=== PATIENT | female | born 1955 | race Caucasian/White ===

== ENCOUNTER 2017-03-12 15:50 | Emergency (ER) | payer OTHER ==
[~2017-03-12] VITALS: Ht 170.2 cm; Wt 49.9 kg
[~2017-03-12 15:50] MED LIST: ALENDRONATE PO; AMBIEN 5 MG TABL5 M1 PO; BUTALB-ACETAMI1 EAC2 PO; BUTALB-APAP-CA1 EACH PO; CELEXA40 MG PO; CENTRUM SILVER1 EAC1 PO; DEPAKOTE500 MG PO; DESYREL100 MG PO; FENOFIBRATE160 MG PO; FOSAMAX 70 MG T70 M1 PO; GABITRIL2 MG PO; HYDROCODON-ACE1 EAC7 PO; ISOMETHEPT-DIC1 EACH PO; LAMICTAL150 MG PO; LEVAQUIN 500 M500 M8 PO; LOPRESSOR50 PO; LUNESTA3 MG PO; MAXALT MLT ODT 55 M1 PO; MEDROLDOSEPACK PO; NARATRIPTAN HC2.5 MG PO; NEURONTIN 300300 M1 PO; NEURONTIN 300M300 M2 PO; NEXIUM40 MG PO; NORCO 5-325 TA1 EACH PO; PHENERGAN 25 MG25 M1 PO; PROPRANOLOL 1010 MG PO; PROTONIX40 M2 PO; RELPAX40 MG PO; REMERON15 MG PO; SEROQUEL 50 MG50 M1 PO; SEROQUEL 50 MG50 MG OR; SEROQUEL 50 MG50 MG PO; SIMVASTATIN40 MG PO; TRAZODONE 150150 M1 PO; TRICOR145 MG PO; VALIUM5 MG PO; VISTARIL 25 MG25 M1 PO; VITAMIN D3400 UNIT PO; VITAMINC500 PO
== END 2017-03-12 20:51 | disposition home or self-care (01) ==
LOC: ER 15:50
DX: G43.909 Migraine, unspecified, not intractable, without status migrainosus (principal); F17.210 Nicotine dependence, cigarettes, uncomplicated; F10.99 Alcohol use, unspecified with unspecified alcohol-induced disorder; Z98.890 Other specified postprocedural states; Z88.5 Allergy status to narcotic agent; Z88.0 Allergy status to penicillin; Z91.048 Other nonmedicinal substance allergy status; Z88.8 Allergy status to other drugs, medicaments and biological substances

== ENCOUNTER 2017-05-23 15:23 | Emergency (ER) | payer OTHER ==
[~2017-05-23] VITALS: Ht 170.2 cm; Wt 49.9 kg
--- NOTE | ~2017-05-23 | EKG ---
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: [facility] : 1955 Requested By: Khalida Dutton Order Number: [id number] MD: Shashi Gates Measurements Intervals [place] Rate: 94 P: 31 [place]: 155 QRS: 18 QRSD: 84 T: 69 QT: 364 QTc: 456 Interpretive Statements Sinus rhythm Atrial premature complex Anteroseptal infarct, age indeterminate Compared to ECG 03/08/2016 13:44:21 Atrial premature complex(es) now present Myocardial infarct finding now present Sinus tachycardia no longer present Electronically Signed On 05-24-2017 6:52:09 CDT by Shashi Gates [email or web address] <ELECTRONICALLY SIGNED> By: Shashi Gates MD 05/24/17 0652 1548 1548 Shashi Gates MD /EPI
[2017-05-23 16:05] LABS: ABSOLUTE NEUTROPHILS 3.7 thou/uL (1.4-8.2); BASOPHILS 0.6 % (0.0-2.0); EOSINOPHILS 1.2 % (0.0-3.0); HEMATOCRIT 31.9 % (37.0-47.0); HEMOGLOBIN 10.6 gm/dL (12.0-15.0); LYMPHOCYTES 20.2 % (24.0-44.0); MCH 30.5 pg (26.0-34.0); MCHC 33.3 g/dL (28.0-37.0); MCV 91.6 fL (80.0-100.0); MONOCYTES 11.4 % (1.0-8.0); PLATELET COUNT 325 thou/uL (150-400); POLYS 66.6 % (36.0-66.0); RBC 3.49 mil/uL (4.20-5.00); RDW 14.3 % (10.5-14.5); WBC 5.6 thou/uL (4.0-11.0)
[2017-05-23 16:06] LABS: MANUAL DIFF NO
[2017-05-23 16:12] LABS: ANION GAP 5 mmol/L (7-16); BUN 9 mg/dL (7-18); CALCIUM 9.3 mg/dL (8.5-10.1); CHLORIDE 105 mmol/L (98-107); CO2 31 mmol/L (21-32); CREATININE 0.8 mg/dL (0.6-1.0); GLUCOSE 95 mg/dL (74-106); POTASSIUM 3.3 mmol/L (3.5-5.1); SODIUM 141 mmol/L (136-145)
[2017-05-23 16:20] LABS: ALBUMIN 2.5 g/dL (3.4-5.0); ALKALINE PHOSPHATASE 122 U/L (46-116); SGOT 16 U/L (15-37); SGPT 13 U/L (30-65); TOTAL BILIRUBIN 0.9 mg/dL (<0.1-1.0); TOTAL PROTEIN 6.6 g/dL (6.4-8.2); TROPONIN-I < 0.04 ng/mL (<0.06)
[2017-05-23] MEDS ORDERED: NEXIUM 40 MG CA40 M1 PO (17:12)
[2017-05-23 19:00] LABS: URINE BILIRUBIN NEGATIVE (Negative); URINE BLOOD NEGATIVE (Negative); URINE COLOR YELLOW; URINE GLUCOSE-RANDOM* NEGATIVE (Negative); URINE KETONES NEGATIVE (Negative); URINE NITRITE POSITIVE (Negative); URINE PROTEIN (DIPSTICK) NEGATIVE (Negative); URINE SPECIFIC GRAVITY <= 1.005 (1.003-1.035)
[2017-05-23 19:04] LABS: BACTERIA >30 Many /HPF (None Seen); CASTS None Seen /LPF (None Seen); SQUAMOUS 0-3 Few /LPF (0-3); URINE RBC None Seen /HPF (0-2); URINE WBC 0-5 Rare /HPF (0-5)
[2017-05-23 19:05] LABS: CRYSTALS None Seen /LPF (None Seen)
[2017-05-23] MEDS ORDERED: KEFLEX500 MG PO (19:15)
[2017-05-23] MEDS ORDERED: AZITHROMYCIN 2250 MG PO (19:15)
== END 2017-05-23 19:49 | disposition home or self-care (01) ==
LOC: ER 15:23
PROVIDERS: Physician Assistant
DX: J18.9 Pneumonia, unspecified organism (principal); E86.0 Dehydration; N39.0 Urinary tract infection, site not specified; I95.9 Hypotension, unspecified; S93.401A Sprain of unspecified ligament of right ankle, initial encounter; G43.909 Migraine, unspecified, not intractable, without status migrainosus; F17.210 Nicotine dependence, cigarettes, uncomplicated; Z90.49 Acquired absence of other specified parts of digestive tract; Z90.89 Acquired absence of other organs; Z88.5 Allergy status to narcotic agent; Z88.8 Allergy status to other drugs, medicaments and biological substances; Z88.0 Allergy status to penicillin; Z91.018 Allergy to other foods; W18.30XA Fall on same level, unspecified, initial encounter; Y93.89 Activity, other specified; Y92.89 Other specified places as the place of occurrence of the external cause; Y99.8 Other external cause status

== ENCOUNTER → 2017-11-18 | Outpatient (CLI) | payer OTHER ==
[~2017-11-18] VITALS: Ht 170.2 cm; Wt 54.4 kg
[~2017-11-18] MED LIST changes: +ALENDRONATE SOD70 MG PO; +AZITHROMYCIN 2250 MG PO; +CENTRUM SILVER1 EAC4 PO; +FLOMAX0.4 MG PO; +KEFLEX500 MG PO; +NEXIUM 40 MG CA40 M1 PO
--- NOTE | ~2017-11-18 | P ---
[facility] [place] [address] PROCEDURE REPORT Name: ANA NICHOLE Room #: REG [facility]#: [id number] Admission: 11/18/17 Attend Phys: Lizandro Kapoor MD Discharge: Date of : 51 Report #: [id number] THIS REPORT FOR: //name// CC: David Gr MD DATE OF SERVICE: 11/18/2017 BRIEF HISTORY: The patient is a 62-year-old woman for average risk screening colonoscopy. Last colon exam was more than 10 years ago. She has had chronic constipation without any recent change in her bowel habits. PREOPERATIVE DIAGNOSIS: Average risk screening colonoscopy. POSTOPERATIVE DIAGNOSES: 1. Multiple colon polyps. 2. Small internal hemorrhoids. MEDICATIONS: Deep sedation with propofol per anesthesia. SPECIMEN: 1. Cecal colon polyp. 2. Polyp at 40 cm. 3. Polyp at 20 cm. 4. Rectal polyp. ESTIMATED BLOOD LOSS: 3 mL. PROCEDURE: Colonoscopy to cecum and terminal ileum with snare polypectomy and biopsy. FINDINGS: Prior to propofol sedation, procedure of colonoscopy discussed with the patient as well as potential risks and its complications. She indicates she understands and desires to proceed. PROCEDURE: With the patient in left lateral decubitus position, digital examination was completed which revealed no abnormalities. Subsequently, the Pansieve video colonoscope was introduced in the rectum, advanced under direct vision to the cecum. This was done with minimal difficulty. The cecum was identified by the ileocecal valve and the appendiceal orifice. I was able to visualize the distal segment of the terminal ileum, which was inspected and noted to be unremarkable. At that point, the scope was slowly withdrawn and careful circumferential views obtained including retroflex in the ascending colon. As we withdrew the scope, she was noted to have a flat and somewhat [facility] [address] [place] [address] PROCEDURE REPORT Name: DIONISIOANA NORMAN Room #: REG [facility]#: [id number] Admission: 11/18/17 Attend Phys: Lizandro Kapoor MD Discharge: Date of : 51 Report #: [id number] nodular polyp in the cecum that was about 12 mm in greatest dimension. This was removed with multiple passes with a cold polypectomy snare and completely removed. The scope was further withdrawn and the prep was noted to be good. No additional abnormalities were noted until the proximal sigmoid colon was reached and at 40 cm, a 6-8 mm flat polyp was seen and removed by cold polypectomy snare and recovered. At 20 cm in the distal sigmoid, another flat polyp was seen in the range of about 5-6 mm, removed by cold snare polypectomy. Scope was withdrawn in the rectum and a 4-5 mm polyp was seen in the distal rectum, removed with biopsy forceps. Upon retroflexion, small internal hemorrhoids were seen. No other abnormalities were identified. The scope was withdrawn. The patient tolerated the procedure well. CONDITION OF THE PATIENT UPON DISCHARGE: Following procedure, the patient was drowsy, arousable, conversant and will be discharged home when fully ambulatory. INSTRUCTIONS TO THE PATIENT AND FAMILY AT THE TIME OF DISCHARGE: Multiple polyps removed as described above. We will follow up on the pathology. However, due to the flat polyp in the cecum more than 10 mm, we will have her return for a high risk screening colonoscopy in 3 years. She has had problems with constipation, which has been a longstanding problem. At this point, I suggest fiber plus or minus MiraLax on a daily basis for management of her chronic constipation. She will return to care of Dr. Jeffry Gr and Dr. David Reed and return to see me as needed. Last colonoscopy was more than 10 years ago. Withdrawal time from the cecum was 20 minutes 48 seconds. <ELECTRONICALLY SIGNED> By: Lizandro Kapoor MD 11/18/17 1712 0833 1150 Lizandro Kapoor MD /nt
== END | disposition home or self-care (01) ==
LOC: GI 06:25
DX: D12.0 Benign neoplasm of cecum (principal); D12.5 Benign neoplasm of sigmoid colon; K62.1 Rectal polyp; K64.8 Other hemorrhoids; Z86.010 Personal history of colon polyps; Z98.890 Other specified postprocedural states; Z90.49 Acquired absence of other specified parts of digestive tract; Z87.891 Personal history of nicotine dependence; K21.9 Gastro-esophageal reflux disease without esophagitis; E78.5 Hyperlipidemia, unspecified; F32.9 Major depressive disorder, single episode, unspecified; F41.9 Anxiety disorder, unspecified
CPT/HCPCS: 62110; 62900

== ENCOUNTER 2018-04-21 09:50 | Emergency (ER) | payer OTHER ==
[~2018-04-21] VITALS: Ht 170.2 cm; Wt 61.2 kg
--- NOTE | ~2018-04-21 | EKG ---
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: [facility] : 1955 Requested By: Syed Gonzalez Order Number: [id number] MD: Shashi Gates Measurements Intervals [place] Rate: 87 P: 42 CT: 163 QRS: -1 QRSD: 91 T: 35 QT: 373 QTc: 449 Interpretive Statements Sinus rhythm Borderline low voltage, extremity leads Compared to ECG 05/23/2017 15:48:38 Atrial premature complex(es) no longer present Myocardial infarct finding no longer present Electronically Signed On 04-21-2018 17:47:19 CDT by Shashi Gates [email or web address] <ELECTRONICALLY SIGNED> By: Shashi Gates MD 04/21/18 1747 1037 1037 Shashi Gates MD /EPI
[2018-04-21 10:41] LABS: ABSOLUTE NEUTROPHILS 2.8 thou/uL (1.4-8.2); BASOPHILS 1.1 % (0.0-2.0); EOSINOPHILS 2.4 % (0.0-3.0); HEMATOCRIT 44.6 % (37.0-47.0); HEMOGLOBIN 15.2 gm/dL (12.0-15.0); LYMPHOCYTES 29.3 % (24.0-44.0); MCH 30.6 pg (26.0-34.0); MCHC 34.1 g/dL (28.0-37.0); MCV 89.8 fL (80.0-100.0); MONOCYTES 9.9 % (1.0-8.0); PLATELET COUNT 165 thou/uL (150-400); POLYS 57.3 % (36.0-66.0); RBC 4.96 mil/uL (4.20-5.00); RDW 15.2 % (10.5-14.5)
[2018-04-21 10:42] LABS: URINE BILIRUBIN NEGATIVE (Negative); URINE BLOOD NEGATIVE (Negative); URINE COLOR YELLOW; URINE GLUCOSE-RANDOM* NEGATIVE (Negative); URINE KETONES NEGATIVE (Negative); URINE PROTEIN (DIPSTICK) NEGATIVE (Negative); URINE UROBILINOGEN 0.2 E.U./dl (0.2-1.0)
[2018-04-21 10:43] LABS: URINE CLARITY HAZY; URINE LEUKOCYTES-REFLEX 2+ (Negative); URINE NITRITE-REFLEX POSITIVE (Negative)
[2018-04-21 10:45] LABS: ANION GAP 8 mmol/L (7-16); BUN 11 mg/dL (7-18); CALCIUM 10.5 mg/dL (8.5-10.1); CHLORIDE 102 mmol/L (98-107); CO2 27 mmol/L (21-32); CREATININE 0.9 mg/dL (0.6-1.0); GLUCOSE 104 mg/dL (74-106); POTASSIUM 3.8 mmol/L (3.5-5.1); SODIUM 137 mmol/L (136-145)
[2018-04-21 10:53] LABS: TROPONIN-I <0.06 ng/mL (<0.06)
[2018-04-21 11:33] LABS: BACTERIA-REFLEX >30 Many /HPF (None Seen); CASTS None Seen /LPF (None Seen); CRYSTALS None Seen /LPF (None Seen); SQUAMOUS >10 Many /LPF (0-3); URINE WBC-REFLEX >25 Many /HPF (0-5)
[2018-04-21 11:34] LABS: URINE RBC 0-2 Rare /HPF (0-2)
[2018-04-21] MEDS ORDERED: ZOFRAN4 MG PO (11:52)
[2018-04-21] MEDS ORDERED: KEFLEX500 M1 PO (11:52)
== END 2018-04-21 12:18 | disposition home or self-care (01) ==
LOC: ER 09:50
PROVIDERS: Emergency Medicine
DX: N39.0 Urinary tract infection, site not specified (principal); K21.9 Gastro-esophageal reflux disease without esophagitis; E78.5 Hyperlipidemia, unspecified; F17.210 Nicotine dependence, cigarettes, uncomplicated; Z88.0 Allergy status to penicillin; Z88.1 Allergy status to other antibiotic agents; Z88.8 Allergy status to other drugs, medicaments and biological substances

== ENCOUNTER 2019-02-07 20:13 | Inpatient (IN) | payer OTHER ==
[~2019-02-07] VITALS: Ht 162.6 cm; Wt 57.6 kg
[~2019-02-07 20:13] MED LIST changes: +KEFLEX500 M1 PO; +ZOFRAN4 MG PO
[2019-02-07 20:20] VITALS: BP 143/97
[2019-02-07 21:23] LABS: ABSOLUTE NEUTROPHILS 4.2 thou/uL (1.4-8.2); BASOPHILS 0.7 % (0.0-2.0); EOSINOPHILS 1.4 % (0.0-3.0); HEMATOCRIT 42.6 % (37.0-47.0); HEMOGLOBIN 14.2 gm/dL (12.0-15.0); LYMPHOCYTES 24.4 % (24.0-44.0); MCH 30.5 pg (26.0-34.0); MCHC 33.3 g/dL (28.0-37.0); MCV 91.4 fL (80.0-100.0); MONOCYTES 9.4 % (1.0-8.0); PLATELET COUNT 161 thou/uL (150-400); POLYS 64.1 % (36.0-66.0); RBC 4.66 mil/uL (4.20-5.00); RDW 14.6 % (10.5-14.5); WBC 6.6 thou/uL (4.0-11.0)
[2019-02-07 21:38] LABS: ANION GAP 11 mmol/L (7-16); BUN 8 mg/dL (7-18); CALCIUM 9.2 mg/dL (8.5-10.1); CHLORIDE 106 mmol/L (98-107); CO2 23 mmol/L (21-32); CREATININE 0.7 mg/dL (0.6-1.0); GLUCOSE 116 mg/dL (74-106); POTASSIUM 4.4 mmol/L (3.5-5.1); SODIUM 140 mmol/L (136-145)
[2019-02-07 21:43] LABS: SALICYLATE 4.7 mg/dL (2.8-20.0)
[2019-02-07] MEDS ORDERED: PROTONIX40 M1 PO (21:58)
[2019-02-07] MEDS ORDERED: HYDROXYZINE HCL25 M1 PO (22:00)
[2019-02-07] MEDS ORDERED: BOTOX100 UNIT (22:05)
--- NOTE | 2019-02-07 22:29 | NUR ---
PT STATES THAT SHE IS NO LONGER SHAKING BUT WANTS SOMETHING TO "KNOCK HER OUT" SO THAT SHE CAN GET SOME SLEEP
[2019-02-07 22:38] LABS: URINE BILIRUBIN NEGATIVE (Negative); URINE BLOOD NEGATIVE (Negative); URINE COLOR YELLOW; URINE GLUCOSE-RANDOM* NEGATIVE (Negative); URINE KETONES 1+ (Negative); URINE NITRITE-REFLEX NEGATIVE (Negative); URINE PROTEIN (DIPSTICK) NEGATIVE (Negative); URINE UROBILINOGEN 0.2 E.U./dl (0.2-1.0)
[2019-02-07 22:39] LABS: URINE CLARITY CLOUDY; URINE LEUKOCYTES-REFLEX 3+ (Negative)
[2019-02-07 22:47] LABS: AMP/METHAMP Negative (Negative); BARBITURATES Negative (Negative); BENZODIAZEPINES POSITIVE (Negative); COCAINE Negative (Negative); METHADONE Negative (Negative); OPIATES Negative (Negative); PCP Negative (Negative)
[2019-02-07 22:53] LABS: CASTS None Seen /LPF (None Seen); MUCUS 0-3 Light strn/LPF (None Seen); SQUAMOUS 0-3 Few /LPF (0-3); URINE WBC-REFLEX >25 Many /HPF (0-5)
[2019-02-07 22:54] LABS: BACTERIA-REFLEX >30 Many /HPF (None Seen); CRYSTALS None Seen /LPF (None Seen)
--- NOTE | 2019-02-08 03:26 | NUR ---
ADMISSION NOTE - ARRIVED TO [facility] FROM [facility] ED R/T TAKING AN UNSPECIFIED AMOUNT OF UNKNOWN PILLS. PT WAS PREVIOUSLY DISCHARGED FROM [facility] DAYS PRIOR TO THIS ADMISSION. SHE REPORTEDLY WAS HOARDING TABLETS OF PILLS TO PLAN TO OVERDOSE. SHE WAS MEDICALLY CLEARED IN THE ED, REPORT WAS GIVEN TO THIS RN, AND PATIENT ARRIVED ON THE UNIT. PER REPORT FROM ED WHEN PT IS STRESSED OUT SHE GOES TACHY >140 (OR DURING TIMES OF ANXIETY) AND RR >40. SHE REPORTEDLY HAS A HX OF SUBSTANCE ABUSE INCLUDING ETOH AND OPIOIDS. UPON ARRIVAL HER VSS, SHE DOES NOT APPEAR TO BE IN DISTRESS. SHE CONTINUED TO KEEP PUSHING FOR A NIGHT TIME SLEEP AID, BUT WHEN THIS RN ENTERED ROOM PATIENT WAS ASLEEP. RECEIVED ORDERS FROM ALLISON GIBSON NP FOR ADMISSION. NURSING INITIATED ALL PRECAUTIONS TO ENSURE SAFETY AT ALL TIMES.
--- NOTE | 2019-02-08 06:20 | NUR ---
ANA SLEPT 4.8 HOURS OF SLEEP. REFER YOU TO THE VIDEO OF WHO SLEEPS MORE.
[2019-02-08 07:00] VITALS: BP 114/66
--- NOTE | 2019-02-08 09:56 | EKG ---
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 : 1955 Requested By: Gerard Martinez Order Number: [id number] MD: Darek Ang Measurements Intervals [place] Rate: 112 P: 66 MS: 150 QRS: 41 QRSD: 86 T: 71 QT: 327 QTc: 447 Interpretive Statements Sinus tachycardia Poor R wave progression Nonspecific ST and T wave abnormality Compared to ECG 04/21/2018 10:37:56 Heart rate has increased Electronically Signed On 02-08-2019 9:56:00 CDT by Darek Ang [email or web address] ��������������������������������������������� <ELECTRONICALLY SIGNED> ���������������������������������������� By: Darek Ang MD, [facility] ��������������������������������������������� 02/08/19 0956 23 23 Darek Ang MD, [facility] /EPI
--- NOTE | 2019-02-08 10:50 | NUR ---
ASSUMED CARE OF PT @ 0700. PT ATE BREAKFAST IN DAYROOM AND SAT IN AM GROUP. PT REPORTS FEELING ANXIOUS & JITTERY - REQUESTED VISTARIL PRN. TALKED ON PHONE W/. PT STATES REPORTS IF SHE OVERDOSES AGAIN OR ATTEMPTS SUICIDE HE WILL LEAVE HER. PT TEARFUL WHEN TALKING ABOUT IT. STATES SHE AND HAVE BEEN TOGETHER FOR OVER 45 YEARS. PT DENIES CURRENT SI/HI. ORIENTED TO PERSON, PLACE & TIME. REQUIRES MUCH REASSURANCE TO HELP W/ANXIETY. PT SIGNED FALL CONTRACT. RESTING QUIETLY IN ROOM AT PRESENT. NO DISTRESS NOTED. CONTINUE TO MONITOR.
[2019-02-08 21:50] VITALS: BP 135/74
--- NOTE | 2019-02-08 23:59 | NUR ---
PATIENT UP AND DOWN ALL NIGHT IN ROOM SINCE 1999. SHE GETS UP TO READ IN A CHAIR AND THEN BACK IN BED TO READ. CALLED NURSE TO PUT HOB UP TO READ. THEN 30 MINUTES LATER SHE IS CALLING FOR NURSE STATING THAT SHE HAS TREMORS REALLY BAD AND FEELS LIKE SCREAMING. STATES SHE IS WITHDRAWING FROM DRUGS BUT DOESN'T KNOW WHAT ONES. HAD PATIENT SHOW ME HER HANDS AND THEY WERE MINOR TREMORS. SHE STATES SHE WANTS AN ASPIRIN BECAUSE THE TREMORS ARE MAKING HER HEAD ACHE. PATIENT HAS HAD ALL HER MEDS AND NEXT PRN IS 1.5 HOURS AWAY. TRIED TALKING WITH THE PATIENT AND DIVERTING ATTENTION ELSEWHERE AND ALSO DID BACK MASSAGE. PATIENT GROWING MORE ANXIOUS. STATES SHE "JUST GET ME A PILL." CALLED Dorene GIBSON NP AND PRN ORDERS GIVEN. ZYPREXA 10MG Q 4HR PRN ANXIETY AGITATION,MELATONIN 5MG PRN INSOMNIA, AND TYLENOL 650MG 4HR PRN FEVER,PAIN WERE ALL GIVEN AND PATIENT SETTLED BACK TO BED. SHE ASKED IF THE MEDS WERE STRONG AND I TOLD HER YES. SHE SAID, GOOD, AND WAS HAPPY WITH THAT. PATIENT WANTED TO STAY UP AND READ AFTER TAKING PRN MEDS AND I ENCOURAGED HER TO LAY DOWN IN BED WITH THE LIGHTS DOWN TO TRY AND RELAX AND LET THE MEDS TAKE EFFECT AND HELP HER HEADACHE, ETC. CONTINUING TO MONITOR.
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
[2019-02-09 07:58] VITALS: BP 107/69
--- NOTE | 2019-02-09 16:37 | NUR ---
PT OBSERVED TO BE UP AMBULATING IN ALLS AD [facility]ING[place] WHILE THERAPIST ON SBH UNIT WORKING WITH OTHER PTS. AFTER CHART REVIEW AND DISCUSSION WITH STAFF AND PT, PT APPEARS TO BE MOBILIZING AT BASELINE AND DOES NOT NECESSITATE THE SERVICES OF SKILLED P.T. ON THE H UNIT AT THIS TIME. PLEASE RE-CONSULT P.T. IF PT DEMONSTRATES A SIGNIFICANT CHANGE IN FUNCTIONAL MOBILITY STATUS.
[2019-02-09 18:18] VITALS: BP 107/69
--- NOTE | 2019-02-09 18:22 | NUR ---
ASSUMED CARE AT 0700 THIS MORNING. PT. HAS BEEN AT THE NURSES STATION DOOR VERY OFTEN TODAY LOOKING FOR MEDICATIONS. SHE STARTED BY PACING IN A MANIC WAY THIS MORNING SAYING SHE IS EXTREMELY NERVOUS. SHE WAS GIVEN HYDRALIZING PRN AND THEN RECEIVED OTHER PRN'S BECAUSE THE FIRST ONE MADE HER NERVOUS AND ANXIOUS. SHE C/O HEAD ACHE AND RECEIVED TYLENOL. (SEE MAR FOR PRN LIST). DENIES SI/HI OR AVH. ATE MEALS ON THE UNIT, ATTENDED SOME GROUPS.
[2019-02-09 20:15] VITALS: BP 135/84
--- NOTE | 2019-02-09 21:32 | NUR ---
PATIENT BECOMING AGITATED AND ANGRY RELATED TO MEDICATIONS 'NOT WORKING' WILL ADMINISTER ZYPREXA ORDERED FOR AGITATION.
--- NOTE | 2019-02-09 23:51 | NUR ---
NURSES NOTES - ASSUMED CARE AT 1900, DURING INTIAL GREET WITH PATIENT, PATIENT WAS IN DAY ROOM INTERACTING WITH OTHER PEERS AND BEING INTRUSIVE AND ATTEMPTING TO SPEAK FOR OTHERS THOUGHTS AND FEELINGS. PT WOULD ALSO EXPRESS THE NEED FOR MEDICATION TO WHICH SHE SEEMED FIXATED UPON. SHE REPORTED A 'TERRIBLE HEADACHE AND I HOPE YOU GIVE ME SOMETHING GOOD TO SLEEP.' THIS NURSE INFORMED HER THAT MEDICATIONS WOULD BE AVAILABLE AT APPROXIMATELY [phone]. SHE THEN ATTEMPTED TO STAFF SPLIT AND ASKED THE SAME QUESTION WITH SAME ANSWER BY OTHER NURSING STAFF. SHE APPEARED WITH A FLAT, LOPEZ, TENSE AFFECT. SHE INCREASINGLY BECAME MORE DEMANDING WITH MEDICATION ADMINISTRATION AND MEDICATIONS WERE GIVEN ORDERED. SHE THEN REAPPEARED FROM ROOM APPROXIMATELY TEN MINUTES LATER AFTER MEDICATIONS WERE GIVEN AND STATED TO THIS RN 'THIS ISNT HELPING!' THIS NURSE ADMINISTERED PRN MEDICATION ORDERED TO WHICH PT IS CURRENTLY IN BED WITH EYES CLOSED AND RR EVEN AND UNLABORED. SHE DENIED ANY OTHER MEDICAL CONCERNS EXCEPT CONNORS 10/10 UNRELIEVED BY PREVIOUS TYLENOL DOSEAGE. SHE DOES NOT APPEAR IN IMMEDIATE DISTRESS, NO FACIAL GRIMACING NOTED, NO GRABBING THE HEAD, OR ANY GESTURES TO SUGGEST AN INTENSE CONNORS. SHE DID DENY SI HI AND HALLUCINATIONS. WILL CONTINUE TO MONITOR MOOD AND BX FOR CHANGES IF ANY ARISE AND MAINTAIN ALL PRECAUTIONS TO ENSURE SAFETY AT ALL TIMES.
--- NOTE | 2019-02-10 06:09 | NUR ---
PATIENT SLEPT 4 HOURS PER TRANSCRIPTION SPECIALIST.
[2019-02-10 07:50] VITALS: BP 120/74
[2019-02-10 09:30] VITALS: BP 135/84
[2019-02-10 13:44] VITALS: BP 135/84
--- NOTE | 2019-02-10 14:45 | NUR ---
PT ALERT AND ORIENTED TO SELF AND SITUATION. PT ANXIOUS TODAY, SOME TREMORS NOTED IN HANDS AND FACE. PT DID REFUSE ANTI SEIZURE MED THIS AM AND AT 1300, NOTIFIED, NEW ORDER FOR SEROQUIL RECEIVED AND GIVEN. GOOD RESULTS NOTED. WILL POC.
[2019-02-10 19:45] VITALS: BP 132/80
--- NOTE | 2019-02-11 01:40 | NUR ---
NURSES NOTE - ANA IS ALERT AND ORIENTED X4, SHE HAS BEEN COOPERATIVE THIS SHIFT PRAISING STAFF AND USING PLEASE AND THANK YOU FOR STAFF AND OTHER PATIENTS. SHE REPORTS FEELING 'GREAT' SINCE SHE CHANGED MEDICATIONS TO SEROQUEL AND THAT IT 'REALLY HELPS MY SHAKES.'NURSING REPEATED MEDICATION EDUCATION TO PATIENT TO ENSURE SHE GOOD READBACK GIVEN EDUCATION. SHE APPEARS WITH A EUTHYMIC AFFECT, DENIES SI HI, REPORTS 'SOME' DEPRESSION, BUT HAS NO IDENTIFIABLE TRIGGER. AT THIS POINT, THIS RN COMPLETED ROUNDING ON ALL PATIENTS AND PATIENT IS IN BED WITH EYES CLOSED, RR EVEN AND UNLABORED, NO S/S OF DISTRESS. SHE DID REPORT HER GOAL WANTING MORE SLEEP. SHE DENIED MEDICAL CONCERNS WITH NO S/S OF DISTRESS. NURSING WILL MAINTAIN ALL PRECAUTIONS TO ENSURE SAFETY AT ALL TIMES.
--- NOTE | 2019-02-11 06:06 | NUR ---
PT SLEPT 8.8 HOURS PER HEEL SEAT TRIMMER
--- NOTE | 2019-02-11 16:23 | NUR ---
0715: Report rec from noc shift, care assumed. 0800: Ambulatory to Dr independently, gait steady. Oriented to name, place and time. Pleasant mood, intermittent hyperactive and nervous behavior noted. Cooperative with staff, feeds self, appetite good consumed 75% of meal. Takes meds whole w/o difficulty. 1135: Seroquel 50mg po given per pts request for nervousness and anxiousness. 1215: Pt states that "shakes are gone." Pt appears more relaxed and calm.
[2019-02-11 19:34] VITALS: BP 154/92
--- NOTE | 2019-02-11 23:07 | NUR ---
PT VERBALIZED ANXIETY AND SHAKES UPON ARRIVAL TO SHIFT. PT ASKED FOR CLARIFICATION ABOUT MEDICATIONS AND WAS PROVIDED. PT REQUESTED PRN FOR ANXIETY AND SLEEP AND PROVIDED. PT TALKED IN DAYROOM WITH PEERS AND WATCHED TV, COMPLIANT WITH MEDS, DECLINED HS SNACK. ON ANTIBIOTIC FOR UTI. PT AWAKENED AT 2315 NOT ABLE TO SLEEP, OFFERED ACTIVITIES BUT DECLINED. PRNS WERE NOT DUE.
--- NOTE | 2019-02-12 01:10 | NUR ---
PT AWAKENED VERBALIZING ANXIWTY, TEARFUL, HYPERVENTILATING, RQUESTING PRN. ENCOURAGED TO VISIT WITH STAFF IN DAY ROOM.
--- NOTE | 2019-02-12 01:14 | NUR ---
PT STATED IF SHE TAKES THE MEDICINE AND IT WORKS THE DR WILL BE MAD AT HER. SHE STATED THE DR KNOWS WHAT SHE HAS DONE. PT CAME TO ME AND SHE SAID IF SHE KEEPS TAKING THE PERN SEROQUEL IT WILL BECOME A HABIT. PT EXPLAINED THE MEDICATION IS NOT GOING TO GIVE HER A BUZZ BUT WILL HELP WITH HER ANXIETY. PT IS SITTING IN DAY ROOM WATCHING TV, SHAKING, AND CLEARING HER THROAT, PERIODICALLY PACING.
--- NOTE | 2019-02-12 01:26 | NUR ---
PT PACING IN DAY ROOM CLEARING HER THROAT AND RUBBING HER ARMS. PT STATED SHE DOES NOT WANT ANY MORE MEDICINE AND SHE IS GOING TO WALK AND GRUNT THROUGH IS. PT CONTINUES TO THINK THE MEDICATION SHE IS CURRENTLY ON IS A BENZODIAZEPINE.
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
--- NOTE | 2019-02-12 04:09 | NUR ---
PT FELL ASLEEP UNTIL AT 0200.
--- NOTE | 2019-02-12 06:21 | NUR ---
PT AWAKENED AND REPORTED ANXIETY. PT CAME TO NURSE STATING SHE DOES NOT WANT MEDICATION BUT WANTED STAFF TO KNOW SHE WAS GOING TO PACE AND YELL OUT IN HER COMPUTER.
--- NOTE | 2019-02-12 09:34 | NUR ---
0700: Report rec from noc shift, care assumed. 0730: Pt observed standing in room, occasional screaming out. When this nurse inquired to pt, she stated "I can't do anything." "I think all this medication I'm taking is making me withdraw." Pt allowed to vent frustrations and given positive feedback regarding tx plan while here. Pt gives understanding of plan of care and need to continue tx regimen. 0815: Pt independently ambulatory to DR, gait steady, observed clinching hands, but appears calmer. Feeds self with set-up, appetite good. 0900: Takes po meds whole w/o difficulty, education and reassurance provided to pt. Attending 899 therapy group, w/100% participation, no anxiety or nervousness noted.
--- NOTE | 2019-02-12 17:10 | NUR ---
Sw called and spoke with pts spouse about a possible d/c tomorrow. After he came in they witnessed more SI from pt. Nursing recommend that pt stay here through the weekend to manage her symptoms. Spouse agreed.
[2019-02-12 20:03] VITALS: BP 120/80
--- NOTE | 2019-02-12 21:33 | NUR ---
PT IN ROOM GRUNTING AND SCREAMING INTERMITTENTLY DURING SHIFT REPORT. PT WENT TO DAYROOM AND WAS NOT GRUNTING OR YELLING. PT INITIALLY REFUSED HER MEDICATIONS BUT THEN COMPLIED WHEN EXPLAINED THAT HER DR PRESCRIBED THEM. REITERATED TO PT SHE WAS NOT TAKING SEIZURE MEDICATIONS OR BENZODIAZAPENES. PT DISCUSSED HOW HER WAS TOLD NOT TO STAY AND VISIT TODAY RELATED TO HER BEHAIORS. PT STATED [facility]. PT STATED SHE HOPES SHE DOES NOT AWAKEN WITH ANXIETY AND SHAKES. PT AT THIS TIME HAS NOT BEEN PACING OR YELLING.
--- NOTE | 2019-02-13 01:09 | NUR ---
PT AWAKENED AND REPORTED ANXIETY PRN PROVIDED. PT PACING IN HER ROOM TALKING TO HERSELF GRUNTING AND YELLING INTERMITTENTLY. PT STATED SHE IS ADDICTED TO TRAZADONE. PT IS NOT RECEIVING TRAZADONE.
--- NOTE | 2019-02-13 04:02 | NUR ---
PT AWAKENED AT AROUND 0400 REPORTING FEELING SHAKING, ANXIOUS AND MESSED EVERYTHING UP AND REQUESTED PRN, PROVIDED. PT RETURNED TO BED.
[2019-02-13 07:00] VITALS: BP 146/123
[2019-02-13 11:28] VITALS: BP 146/123
--- NOTE | 2019-02-13 15:26 | NUR ---
Date of Admission: 02/07/19 Date of Activity Therapy Assessment: 02/10/19 Activity Goal: Manage anxiety symptoms Initial Goal: 2 Group activities/day Weekly progress towards goal: Did not achieve goals Group participation level: Moderate Behaviors observed: Patient has been consistently participating in morning groups, though she claims high anxiety in the afternoon when it is time for group. She either refuses to attend or leaves early. Patient frequently approaches COMPUTER HARDWARE ENGINEER for coloring pages to cope with anxiety symptoms and is observed to walk the halls frequently. Plan: No change towards goal
--- NOTE | 2019-02-13 17:52 | NUR ---
ASSUMED CARE 0700 THIS MORNING. PT. CONTINUALLY COMPLAINING OF BEING ANXIOUS, JITTERY, AND NEEDING SOMETHING TO CALM HER DOWN. SHE WAS GIVEN 3 PRNS TODAY, BUT SHE REFUSED HER 1700 MEDICATIONS "AFTER I TOOK 3 THINGS TODAY" SHE WAS NOTED PACING, AND TALKING TO HERSELF. SHE WAS GIVEN RELAXATION TECHNIQUES, AND LET HER BE IN HER CALM AREA. SHE HAS BEEN ATTENTION SEEKING AND MED SEEKING. THIS REAL ESTATE ATTORNEY TALKED TO THE PT. EARLY THIS MORNING ABOUT NOT TAKING ALL THE MEDICATIONS SO IT COULD ACTUALLY BE DETERMINED WHAT MEDICATIONS WERE WORKING AND WHICH ONES WERE NOT. THIS TALK HAD ABSOLUTELY NO AFFECT ON THE PT.'S BEHAVIORS.
[2019-02-13 19:53] VITALS: BP 133/92
--- NOTE | 2019-02-13 23:44 | NUR ---
Care assumed of patient at 1900: Patient alert and oriented x4. Patient denies pain or discomfort. Patient restless at the start of the shift ambulating from room to day room. Patient was able to sit and color in day room while eating HS snack. Patient has perplexed affect at times. Patient questioning medication prescribed. Patient stated that her prescribed Seroquel can have a reverse effect on her and make her stay awake. Patient provided Melatonin to assist her going to to sleep. Patient took medication whole without any difficulties. Patient has scattered thoughts. Patient reported concerns about having "detox" symptoms. Patient has tremors at times but when she is able to focus on conversation and have meaningful discussion, tremors will subside. Patient denies SI/HI/AH/VH. No s/s of delusions or paranoia behaviors. Patient was able to read her book in her room for a little bit this evening then go to sleep without any difficulties.
[2019-02-14 07:48] VITALS: BP 131/66
--- NOTE | 2019-02-14 09:00 | NUR ---
0700: Report rec from noc shift, care assumed. [id number]: Ambulatory independently in halls and to DR, gait steady. Pleasant mood, but approx. q 15 minutes she will tell this nurse she is feeling "weird" and then will state "I don't want to take any more medicine for my nerves, like that Seroquel, cause it makes me worse." Able to calm pt easily, accepting of explanation and reason for medications, takes meds whole w/o difficulty. Visits w/other pts well, oriented to name, place, time and situation, focuses mainly on not wanting her home. Pt encouraged to set short-term goal for today, positive response frpm pt. Takes meds whole w/o difficulty. Attending 899 therapy group.
[2019-02-14 20:23] VITALS: BP 104/73
--- NOTE | 2019-02-15 03:04 | NUR ---
Care assumed of patient at 1900: Patient alert and oriented x4. Patient has been restless this shift. Patient reports that she is anxious. Patient then reports that she is detoxing from her medication. But then she is refusing to take them. Then she is stating that she is having an adverse reaction from them. Multiple complaints made. Patient up ambulating the halls, moaning, appears to be hyperventilating. When standing face to face with patient, talking to her, she is able to breath slower, not moan and tremors cease. Patient offered diversional activities such as reading, coloring, ambulation. Patient asking for "that one little pill" but then states that she will not take any more pills ever. Patient worried about her kicking her out because she is taking medication. Education completed regarding medication regimen several times this shift which is not retained by patient. Patient is attention seeking this shift. Patient requiring frequent re-direction as to not disrupt the [place].
[2019-02-15 07:15] VITALS: BP 137/82
[2019-02-15 10:13] VITALS: BP 122/82
--- NOTE | 2019-02-15 16:23 | NUR ---
[id number]: Report rec from noc shift, care assumed. Pt resting in bed with eyes closed, no distress noted. Ambulatory independently in neumann and to DR, visits with other pts, mood cheerful, no anxiety noted. Feeds self, appetite good, takes meds whole with reluctantcy. Pt states "I'm not taking my pills today." Chet Baldwin, JACINTO here, importance of taking medication explained to pt by DISPENSARY CLERK and this nurse. Pt gives verbal understanding of medications but states " I need a different type of medicine." [id number]: Pt independently took shower, impulsive pacing from dining room to her room noted x5 times, remains calm. 1600: here for visit, both remain calm.
[2019-02-15 19:42] VITALS: BP 140/79
--- NOTE | 2019-02-16 01:20 | NUR ---
PT AMBULATING IN HALLWAYS INDEPENDENTLY AND IS TOLERATING WELL. DENIES PAIN. VERY ANXIOUS AND IS HAVING DIFFICULTY SLEEPING. MELATONIN GIVEN. WILL CONTINUE TO PROVIDE FREQUENT OBSERVATION.
--- NOTE | 2019-02-16 11:13 | NUR ---
Nani called pt's and set up a meeting at 3pm 02/16/19
[2019-02-16 11:24] VITALS: BP 140/79
--- NOTE | 2019-02-16 12:10 | NUR ---
Pt seen for early LOS. Admitted for SI, possible overdose. Hx includes depression, SI. Visited at bedside prior to lunch. Pt reports stable, good appetite. Averaging ~80% of meals since 02/10, often completing 75-100% of at least 2 meals daily for high PO. Current standing wt of 127#, placing her at a healthy BMI of 21.8. She reports a period 5-6 yrs ago, dropped to 110# during a hospitalization, but has been working on wt regain. Desires closer to 135-145# for a goal/target wt. RD educated on tips for healthy wt gain, choosing energy dense kcals like avocado, oils, nut butter, nuts, seeds and eating q 2-3 hrs small, more frequent PO. Receives vitamin C and D, MVI w/ minerals, and daily miralax. Remains a low nutrition risk.
--- NOTE | 2019-02-16 15:23 | NUR ---
PATIENT'S MAIN CONCERN TODAY IS SHE FEELS LIKE SHE IS TAKING TOO MANY PILLS. STATES THE MEDICINE MAKES HER ANGRY AND IRRITABLE. TOOK 1/2 DOSE OF TIGANIDINE THIS AM. WENT AHEAD AND TOOK FULL DOSE THIS AFTERNOON AFTER TALKING TO MARIEL. TOLERATING DIET AND EATING ALL OF HER MEALS. PARTICIPATING IN ALL ACTIVITIES. REMAINS ANXIOUS AND NEEDS MUCH ENCOURAGEMENT TO TAKE HER MEDICINE. STEAY GAIT. ALSO HAVING TROUBLE SLEEPING. DR. PIERRE VISITING WITH PATIENT AT PRESENT. PATIENT IS NOT A FALL RISK.
--- NOTE | 2019-02-16 16:54 | NUR ---
@1500 ALAN had a meeting with Pt. , Jourdan, Dr. cannon and Pt concerning dicharge recommendation. Sr. Funez has recommeded Pt attend partial hospital program. Pt felt she needs to remail in the hospital but also complained about her medications and not being able to sleep at night. Sw explained the goal of this unti was to safely discharge Pt to the least restictive enviornment. SW explained that Pt would beinfit from outpt mental health services that included to [facility]. Pt responded " okay". ALAN followed up with Tj [phone], left a voice mail for [facility] admissions for a call back. ALAN will need to follow up with Tj concerning a referal. Pt's gave ALAN a list of Pt's doctors: Dr. Briceno (psychiatrist) [phone] Janeth Garay (PCP) [phone] Lars Wolfe ( therapist) [phone]
[2019-02-16 19:24] VITALS: BP 149/92
--- NOTE | 2019-02-16 19:47 | NUR ---
assumed care of the pt at 1914 pm. alert et oriented x 3. makes needs known. walks with a steady gait, has been pacing when this documentation writer came on duty. denies anxiety and depression. denies si/hi, denies a/v hallunications. heart rate regular. lungs clear bilaterally, resp., even, and unlabored. +PP bilaterally.
--- NOTE | 2019-02-17 05:21 | NUR ---
THE PT HAS BEEN PACING UP AND DOWN THE HALLWAY EVERY SINCE SHE GOT UP FOR THE DAY. REMAINS ON 12 MINUTE CHECKS FOR HER SAFETY.
[2019-02-17] MEDS ORDERED: TRAZODONE HCL50 MG PO (10:50)
[2019-02-17] MEDS ORDERED: SEROQUEL XR 20200 MG PO (10:51)
[2019-02-17] MEDS ORDERED: MIRALAX17 GM PO (10:52)
--- NOTE | 2019-02-17 11:21 | NUR ---
ASSUMED PATIENT CARE AT 0730. PATIENT UP IN DF.TR., ANXIOUS BEHAVIOR, MOOD. HOWEVER, TOOK A.M. MEDICATIONS, WHOLE WITH WATER. DISCHARGE PLANNED FOR 12:30 TODAY.
[2019-02-17 12:13] VITALS: BP 149/92
--- NOTE | 2019-02-17 12:24 | NUR ---
NOTE: 1200 LOTRIGINE NOT GIVEN At this time; r/t 0800 dose was late. will be taken at home, popst-discharge./
--- NOTE | 2019-02-17 12:32 | NUR ---
Patient Name: ANA NICHOLE Admission Date: 02/07/19 DISCHARGE PLAN: Pt will be d/c home with . Care Assessment: Pt was assessed by Dr. Hadley, and diagnosed with Major Depressive Disorder, and Unspecfied Anxiety Level II Assessment: None Transportation: Pt will be transported by her Special Instructions/Notes: Pt will need a php program DISCHARGE TO FACILITY: Facility: Phone: Fax: Address: Contact Name: Phone: PCP: [facility] Psychiatrist: Tj on [address] [facility] at 10:00am. Pt appointment is on February 24, 2019.
--- NOTE | 2019-02-17 12:57 | NUR ---
PATIENT DISCHARGED TO HOME AT 12:50 P.M., ACCOMPANIED BY HER . PATIENT STATED THAT SHE WAS GOING TOP SMOKE SOON SHE GOT TO THE CAR. NURSE REMOVED NICOTINE PATCH FROM PATIENT'S RIGHT ARM, WHICH HAD BEEN PLACED AT 0944 A.M.
--- NOTE | 2019-02-18 09:32 | D ---
[facility] [place] [address] DISCHARGE SUMMARY Name: ANA NICHOLE Room #: 523B-B [facility] IN M.R.#: [id number] Admission: 02/07/19 ������������������ Attend Phys: Basil Funez DO Discharge: 02/17/19 ������������������ Date of : 51 Report #: [id number] THIS REPORT FOR: //name// CC: Basil Reed DATE OF SERVICE: 02/17/2019 INPATIENT PSYCHIATRIC DISCHARGE SUMMARY ATTENDING PHYSICIAN: Basil Funez DO. BLOCK PRESS OPERATOR: Rocky Grady M.D. DISCHARGE DIAGNOSES: Major depressive disorder, single episode, severe degree; unspecified anxiety, suspected borderline personality features. The patient was discharged home with her , Jourdan. The patient has the following aftercare: [address] at 10:00 a.m. appointment on 02/24/2019. The patient should see PCP of Dr. Reed. The patient is encouraged to enroll in the partial hospitalization program at [facility]. MEDICATIONS AT THE TIME OF DISCHARGE: As follows: Trazodone 100 mg oral at bedtime at 22:00 for sleep and Seroquel 400 mg extended release oral at bedtime, 30-day Rx given for both of those. MiraLax 17 grams p.o. daily for bowel motility, that is [id number]-[id number]; simvastatin 40 mg oral daily for hyperlipidemia; continue lamotrigine 100 mg p.o. 4 times a day, continue for seizures; cholecalciferol 400 international units oral daily; vitamin C 1000 mg p.o. daily; tiagabine which is an anticonvulsant, which is Gabitril, 8 mg p.o. 3 times a day; multivitamin oral daily; tamsulosin 0.4 mg p.o. daily for urinary difficulty; alendronate 70 mg oral every Parker for osteoporosis and pantoprazole 40 mg p.o. b.i.d. for GERD. LABORATORY DATA: Laboratories this admission as follows: Micro, the patient had a negative urine culture. CBC was grossly normal. Chemistries were grossly normal, except glucose 116. TSH was 3.553. Toxicology positive for benzodiazepines. Acetaminophen level less than 2 with admission salicylate 12.7. Urinalysis had some positives, including 3+ leukocyte esterase. However, urine culture showed mixed urogenital bernardino. REASON FOR ADMISSION: Suspected polydrug overdose with intent to end her life. HOSPITAL COURSE: The patient was admitted to Geriatric Psychiatry Unit. The patient displayed prominent anxiety attacks and avoidance early on. I spoke with her several times, discussed the need for her to avoid routine use of [address] [address] DISCHARGE SUMMARY Name: ANA NICHOLE Room #: 523B-B [facility] IN M.R.#: [id number] Admission: 02/07/19 ������������������ Attend Phys: Basil Funez DO Discharge: 02/17/19 ������������������ Date of : 51 Report #: [id number] benzodiazepines. She spends a lot of time seeking medications. The patient's sleep improved; 2 nights before discharge, it was 2-1/2 hours. I think we had at least a 4-hour cy the night before discharge. VITAL SIGNS: On the day of discharge are as follows: Temperature 36.5, pulse 117, respirations 18 and BP 149/92. MENTAL STATUS EXAMINATION: This is a well-developed, perhaps undernourished female, appearing stated age. Her BMI was 21.8, so it did not trigger malnutrition. Attention fair. Concentration fair. Speech normal in rate. Thought process linear and goal oriented. Thought content focused on discharge and worried about it. I had to give her 1 mg of Ativan right before discharge due to the degree of her anticipatory anxiety. Memory not formally tested. Insight fair to limited. Judgment fair to limited. Fund of knowledge average range. PROGNOSIS: Prognosis for this patient is fair to guarded as she has a number of issues that will require psychotherapy and I expect her improvement would be relative with her commitment for this. Also the patient has large incentive not to make any suicidal gestures as her has taken a position he will not stay with her if this kind of behavior continues. ��������������������������������������������� <ELECTRONICALLY SIGNED> ���������������������������������������� By: Basil Funez DO ��������������������������������������������� 02/18/19 0932 2350 0053 Basil Funez DO /nt
== END 2019-02-17 13:03 | disposition home or self-care (01) | DRG 885 ==
LOC: ER 20:13 → EROBS 23:22 → SBH 23:22
PROVIDERS: Emergency Medicine; ADMIT Psychiatry & Neurology Psychiatry
DX: F32.2 Major depressive disorder, single episode, severe without psychotic features (principal); R45.851 Suicidal ideations; N39.0 Urinary tract infection, site not specified; G43.909 Migraine, unspecified, not intractable, without status migrainosus; K21.9 Gastro-esophageal reflux disease without esophagitis; E78.5 Hyperlipidemia, unspecified; F32.9 Major depressive disorder, single episode, unspecified; F41.9 Anxiety disorder, unspecified; R45.1 Restlessness and agitation; G47.00 Insomnia, unspecified; T40.2X1A Poisoning by other opioids, accidental (unintentional), initial encounter; Z87.81 Personal history of (healed) traumatic fracture; Z90.49 Acquired absence of other specified parts of digestive tract; Z88.6 Allergy status to analgesic agent; Z88.0 Allergy status to penicillin; Z88.8 Allergy status to other drugs, medicaments and biological substances; Z91.14 Patient's other noncompliance with medication regimen; Z79.899 Other long term (current) drug therapy
CPT/HCPCS: 10880

== ENCOUNTER 2019-05-27 18:41 | Inpatient (IN) | payer OTHER ==
[~2019-05-27] VITALS: Ht 170.2 cm; Wt 56.2 kg
[~2019-05-27 18:41] MED LIST changes: +BOTOX100 UNIT; +HYDROXYZINE HCL25 M1 PO; +MIRALAX17 GM PO; +PROTONIX40 M1 PO; +SEROQUEL XR 20200 MG PO; +TRAZODONE HCL50 MG PO
[2019-05-27 18:44] VITALS: BP 171/90
[2019-05-27] MEDS ORDERED: OLANZAPINE10 M1 PO (19:20)
[2019-05-27] MEDS ORDERED: NEURONTIN 400M400 M2 PO (19:20)
[2019-05-27] MEDS ORDERED: INTERMEZZO3.5 MG PO (19:21)
[2019-05-27] MEDS ORDERED: DIAZEPAM 10 MG10 M1 PO (19:21)
[2019-05-27] MEDS ORDERED: TRAZODONE 150150 M1 PO (19:21)
[2019-05-27] MEDS ORDERED: REMERON15 M2 PO (19:22)
[2019-05-27] MEDS ORDERED: SIMVASTATIN80 MG PO (19:22)
[2019-05-27] MEDS ORDERED: LAMOTRIGINE250 MG PO (19:22)
[2019-05-27] MEDS ORDERED: FLOMAX0.4 MG PO (19:23)
[2019-05-27 19:45] LABS: ABSOLUTE NEUTROPHILS 2.7 thou/uL (1.4-8.2); BASOPHILS 1.5 % (0.0-2.0); EOSINOPHILS 3.9 % (0.0-3.0); HEMATOCRIT 38.3 % (37.0-47.0); HEMOGLOBIN 12.3 gm/dL (12.0-15.0); LYMPHOCYTES 25.1 % (24.0-44.0); MCH 29.3 pg (26.0-34.0); MCHC 32.2 g/dL (28.0-37.0); MONOCYTES 9.8 % (1.0-8.0); PLATELET COUNT 161 thou/uL (150-400); POLYS 59.7 % (36.0-66.0); RBC 4.21 mil/uL (4.20-5.00); RDW 14.9 % (10.5-14.5); WBC 4.5 thou/uL (4.0-11.0)
[2019-05-27 19:51] LABS: ANION GAP 8 mmol/L (7-16); BUN 14 mg/dL (7-18); CALCIUM 8.8 mg/dL (8.5-10.1); CHLORIDE 108 mmol/L (98-107); CO2 28 mmol/L (21-32); CREATININE 0.8 mg/dL (0.6-1.0); GLUCOSE 117 mg/dL (74-106); POTASSIUM 3.7 mmol/L (3.5-5.1); SODIUM 144 mmol/L (136-145)
[2019-05-27 20:01] LABS: ALBUMIN 3.1 g/dL (3.4-5.0); MAGNESIUM 1.9 mg/dL (1.8-2.4); SGOT 16 U/L (15-37); SGPT 17 U/L (30-65); TOTAL BILIRUBIN 0.3 mg/dL (<0.1-1.0); TOTAL PROTEIN 6.7 g/dL (6.4-8.2); TROPONIN-I <0.06 ng/mL (<0.06)
[2019-05-27 20:09] LABS: URINE BILIRUBIN NEGATIVE (Negative); URINE BLOOD NEGATIVE (Negative); URINE CLARITY SL CLOUDY; URINE COLOR YELLOW; URINE GLUCOSE-RANDOM* NEGATIVE (Negative); URINE KETONES NEGATIVE (Negative); URINE NITRITE-REFLEX NEGATIVE (Negative); URINE PROTEIN (DIPSTICK) NEGATIVE (Negative); URINE SPECIFIC GRAVITY 1.015 (1.005-1.035); URINE UROBILINOGEN 0.2 E.U./dl (0.2-1.0)
[2019-05-27 20:13] LABS: URINE LEUKOCYTES-REFLEX 3+ (Negative)
[2019-05-27 20:17] LABS: AMP/METHAMP Negative (Negative); BARBITURATES Negative (Negative); BENZODIAZEPINES POSITIVE (Negative); COCAINE Negative (Negative); METHADONE Negative (Negative); OPIATES Negative (Negative); PCP Negative (Negative)
[2019-05-27 20:21] LABS: BACTERIA-REFLEX >30 Many /HPF (None Seen); CASTS None Seen /LPF (None Seen); CRYSTALS None Seen /LPF (None Seen); SQUAMOUS 0-3 Few /LPF (0-3); URINE WBC-REFLEX >25 Many /HPF (0-5)
[2019-05-27 20:22] LABS: URINE RBC None Seen /HPF (0-2)
[2019-05-27 23:56] VITALS: BP 146/84
[2019-05-28 00:05] VITALS: BP 155/84
[2019-05-28 00:07] VITALS: BP 146/84
--- NOTE | 2019-05-28 00:50 | NUR ---
New pt admitted from the ER with a dx of AMS, UTI AND PNA. Pt is a&ox4. Oriented to room. OBIEE OBIA SOLUTION ARCHITECT Aurora came in and talked with pt and orders were placed. pt recieved her night time meds per emar. pt has a significant psych hx; psych is consulted. pt comes from home with . v/s stable. ambulates with standby assist. no s/s of distress. fall prec in place. will cont to monitor
[2019-05-28 03:35] VITALS: BP 140/77
[2019-05-28 07:05] VITALS: BP 118/62
--- NOTE | 2019-05-28 08:44 | EKG ---
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: : 1955 Requested By: George Figueroa Order Number: [id number] MD: Darek Ang Measurements Intervals [place] Rate: 95 P: 39 KS: 142 QRS: 27 QRSD: 80 T: 69 QT: 347 QTc: 436 Interpretive Statements Sinus tachycardia Multiform ventricular premature complexes Poor R wave progression Compared to ECG 02/07/2019 21:24:27 Ventricular premature complex(es) now present Electronically Signed On 05-28-2019 8:44:10 CDT by Darek Ang [email or web address] <ELECTRONICALLY SIGNED> By: Darek Ang MD, FAC 05/28/19 0844 31 31 Darek Ang MD, [facility] /EPI
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
[2019-05-28 19:05] VITALS: BP 168/71
--- NOTE | 2019-05-28 20:11 | NUR ---
Assumed patient care at 0715. Patient's vital signs have been stable. chrissy to the back of her head are intact. Small amount of serosanqinious drainage noted on pillow. Patient complained of a level "ten" pain to this area, was given Fentanyl as ordered per IV push at 1102 and at 1905. Medication effective, as patient wpuld fall asleep within approximately 30 minutes after having this (she would deny much pain relief even though there was evidence of this helping). Patient's spouse visited with this nurse. He is concerned that she is on Fentanyl because "she used to be addicted to Opiods." This nurse assured him that patient was not getting a large amount and that she could only be given this every 4 hours; he verbalized an understanding to this. Patient was also noted to be found smoking in her room today. She had her cigarettes and belly roller in a sparkly purplish purse. These were taken away from her and sent home with her . POC followed.
--- NOTE | 2019-05-29 04:33 | NUR ---
Assessment completed. pt a&ox4. ambulates with standby assist to bathroom. pt had a restful night. pain was controlled with ordered pain meds. chrissy in head intact. fall prec in place. no s/s of distress. will cont to monitor
[2019-05-29 05:50] LABS: HEMATOCRIT 34.6 % (37.0-47.0); MCH 29.5 pg (26.0-34.0); MCHC 31.8 g/dL (28.0-37.0); MCV 92.7 fL (80.0-100.0); RBC 3.73 mil/uL (4.20-5.00)
[2019-05-29 05:58] LABS: CALCIUM 8.6 mg/dL (8.5-10.1); CREATININE 0.6 mg/dL (0.6-1.0); POTASSIUM 3.8 mmol/L (3.5-5.1)
[2019-05-29 09:09] VITALS: BP 144/80
--- NOTE | 2019-05-29 20:04 | NUR ---
Assumed pt care this am, chrissy on the back of head intact with no drainage or signs of infection. Pain level have been reported out to be a 10/10 and no relief has been noted, though pt would be asleep, be walking around the room and watching tv. came to visit and had mentioned that pt had an addiction to opiods in the past. Pt does not call for assistance and would claim she forgets when nurse and well drill operator rotary drill goes into the rom as the alarms go off. The request for IV pain medication and geting a double dose was requested through out the day, explained to the pt the pros and cons or having narcotics. POC followed, no true signs of distress have been noted though consistently been verbalizaed that there is no pain relief, informed hospitalist. Endorsed to the night nurse.
[2019-05-29 21:55] VITALS: BP 145/82
--- NOTE | 2019-05-30 02:14 | NUR ---
ASSUMED CARE FROM DAY SHIFT PT MAYRA IV OUT WHILE GETTING OUT OF BED TO GO TO BATHROOM PT IS VERY IMPULSIVE BED ALARM PLACED ON FOR SAFETY, DICUSSED CURRENT PLAN OF CARE PO MEDICATION MEDICATON GIVEN FOR PAIN AND COUGH THROUGHOUT SHIFT. LOOSE NON- PRODUCTIVE COUGH NOTED.WILL CONINTUE WITH CURRENT PLAN OF CARE AND REPORT CHANGES OR ABNORMAL FINDIINGS.
[2019-05-30 05:52] LABS: HEMATOCRIT 33.2 % (37.0-47.0); HEMOGLOBIN 10.7 gm/dL (12.0-15.0); MCH 29.6 pg (26.0-34.0); MCHC 32.4 g/dL (28.0-37.0); MCV 91.3 fL (80.0-100.0); RBC 3.63 mil/uL (4.20-5.00); RDW 14.6 % (10.5-14.5); WBC 4.2 thou/uL (4.0-11.0)
[2019-05-30 06:01] LABS: CALCIUM 8.8 mg/dL (8.5-10.1); CREATININE 0.5 mg/dL (0.6-1.0); POTASSIUM 3.3 mmol/L (3.5-5.1)
[2019-05-30 07:14] VITALS: BP 167/90
[2019-05-30] MEDS ORDERED: AZITHROMYCIN500 MG PO (12:07)
[2019-05-30] MEDS ORDERED: MUCINEX600 MG PO (12:12)
[2019-05-30 12:41] VITALS: BP 167/90
--- NOTE | 2019-05-30 13:13 | NUR ---
Assumed pt care this am, vs have been stable. Still wanting IV pain medication and verbalizing pain is 10/10 though no manifestations have been noted. POC followed, IV removed. informed Dr. Birch of the unrelieved pain and the constant request for IV pain meds and also wanting a double dose. DC orders given, instructions givne to the pt, prescrptions were sent to the pharmacy. Pt is now dc, came to take the pt home.
== END 2019-05-30 13:20 | disposition home or self-care (01) | DRG 91 ==
LOC: ER 18:41 → 4W 20:41 → EROBS 20:41 → 4W 05-28 00:08
PROVIDERS: Emergency Medicine; ADMIT Hospitalist
DX: G92 Toxic encephalopathy (principal); J18.9 Pneumonia, unspecified organism; N39.0 Urinary tract infection, site not specified; F80.82 Social pragmatic communication disorder; I10 Essential (primary) hypertension; R41.0 Disorientation, unspecified; F41.9 Anxiety disorder, unspecified; G47.00 Insomnia, unspecified; F31.9 Bipolar disorder, unspecified; F17.210 Nicotine dependence, cigarettes, uncomplicated; S09.90XA Unspecified injury of head, initial encounter; W22.8XXA Striking against or struck by other objects, initial encounter; Y93.89 Activity, other specified; Y92.89 Other specified places as the place of occurrence of the external cause; Z79.899 Other long term (current) drug therapy; Z88.0 Allergy status to penicillin; Z88.8 Allergy status to other drugs, medicaments and biological substances; Y99.8 Other external cause status; Z71.6 Tobacco abuse counseling
CPT/HCPCS: 10040

== ENCOUNTER 2019-10-21 15:50 | Inpatient (IN) | payer OTHER ==
[~2019-10-21] VITALS: Ht 152.4 cm; Wt 61.2 kg
[~2019-10-21 15:50] MED LIST changes: +AZITHROMYCIN500 MG PO; +DIAZEPAM 10 MG10 M1 PO; +INTERMEZZO3.5 MG PO; +LAMOTRIGINE250 MG PO; +MUCINEX600 MG PO; +NEURONTIN 400M400 M2 PO; +OLANZAPINE10 M1 PO; +REMERON15 M2 PO; +SIMVASTATIN80 MG PO
[2019-10-21 15:59] VITALS: BP 141/82
[2019-10-21 16:33] LABS: ABSOLUTE NEUTROPHILS 2.9 thou/uL (1.4-8.2); BASOPHILS 1.3 % (0.0-2.0); HEMATOCRIT 44.4 % (37.0-47.0); HEMOGLOBIN 14.6 gm/dL (12.0-15.0); LYMPHOCYTES 31.2 % (24.0-44.0); MCH 29.1 pg (26.0-34.0); MCHC 32.9 g/dL (28.0-37.0); MCV 88.6 fL (80.0-100.0); PLATELET COUNT 166 thou/uL (150-400); POLYS 56.5 % (36.0-66.0); RDW 17.8 % (10.5-14.5); WBC 5.2 thou/uL (4.0-11.0)
[2019-10-21 16:42] LABS: ANION GAP 6 mmol/L (7-16); BUN 10 mg/dL (7-18); CALCIUM 9.7 mg/dL (8.5-10.1); CHLORIDE 105 mmol/L (98-107); CO2 31 mmol/L (21-32); CREATININE 0.7 mg/dL (0.6-1.0); GLUCOSE 107 mg/dL (74-106); POTASSIUM 4.2 mmol/L (3.5-5.1); SODIUM 142 mmol/L (136-145)
[2019-10-21 16:52] LABS: ALBUMIN 3.3 g/dL (3.4-5.0); SGOT 15 U/L (15-37); SGPT 17 U/L (30-65); TOTAL BILIRUBIN 0.2 mg/dL (<0.1-1.0); TOTAL PROTEIN 6.6 g/dL (6.4-8.2); TROPONIN-I <0.06 ng/mL (<0.06)
[2019-10-21] MEDS ORDERED: PANTOPRAZOLE SO40 M1 PO (17:28)
[2019-10-21] MEDS ORDERED: CENTRUM WOMEN1 EACH PO (17:31)
[2019-10-21] MEDS ORDERED: VITAMIN D35000 UNI2 PO (17:32)
[2019-10-21] MEDS ORDERED: VITAMIN C1000 MG PO (17:32)
[2019-10-21 18:19] LABS: URINE BILIRUBIN NEGATIVE (Negative); URINE BLOOD NEGATIVE (Negative); URINE CLARITY CLEAR; URINE COLOR YELLOW; URINE GLUCOSE-RANDOM* NEGATIVE (Negative); URINE KETONES NEGATIVE (Negative); URINE LEUKOCYTES-REFLEX 1+ (Negative); URINE NITRITE-REFLEX NEGATIVE (Negative); URINE PROTEIN (DIPSTICK) NEGATIVE (Negative); URINE UROBILINOGEN 0.2 E.U./dl (0.2-1.0)
[2019-10-21 18:27] LABS: BACTERIA-REFLEX None Seen /HPF (None Seen); SQUAMOUS 0-3 Few /LPF (0-3); URINE RBC None Seen /HPF (0-2); URINE WBC-REFLEX 0-5 Rare /HPF (0-5)
[2019-10-21 18:28] LABS: CRYSTALS None Seen /LPF (None Seen)
[2019-10-21 20:08] VITALS: BP 124/66
--- NOTE | 2019-10-21 20:44 | NUR ---
ATTEMPTED TO CALL REPORT FOR SECOND TIME. WAS TOLD THAT NURSE WAS IN A ROOM AND WOULD NEED TO CALL BACK. INFORMED PERSON ANSWERING PHONE THAT THIS IS THE SECOND ATTEMPT AT REPORT AND THE BED HAS BEEN ASSIGNED FOR AN HOUR. COULD GIVE BEDSIDE REPORT
[2019-10-21 20:55] VITALS: BP 124/66
[2019-10-21 21:00] VITALS: BP 150/73
[2019-10-22 00:07] VITALS: BP 126/69
--- NOTE | 2019-10-22 00:21 | NUR ---
10/21/19 2100 ASSUMED CARE OF PT 2199 ADMISSION ASSESSMENT COMPLETED, PT COMPLAINING OF GENERALIZED ABDOMINAL PAIN, MOSTLY EPIGASTRIC AREA, PT EDUCATION COMPLETED, AND ROOM ORIENTATION AND FALL CONTRACT, BOWEL SOUNDS ACTIVE X 4, WITH NO NAUSEA AT THIS TIME, WILL CONTINUE TO MONITOR WITH HOURLY ROUNDING. GABRIEL PEREZ DUST COLLECTOR ATTENDANT NOTIFIED OF PT ARRIVAL AND PAIN MEDS REQUESTED BY PT.
[2019-10-22 04:20] VITALS: BP 110/58
[2019-10-22 05:15] LABS: HEMATOCRIT 41.7 % (37.0-47.0); HEMOGLOBIN 13.4 gm/dL (12.0-15.0); MCHC 32.2 g/dL (28.0-37.0); RBC 4.63 mil/uL (4.20-5.00); RDW 17.7 % (10.5-14.5); WBC 7.2 thou/uL (4.0-11.0)
[2019-10-22 05:44] LABS: LIPASE 668 U/L (73-393)
[2019-10-22 05:45] LABS: CALCIUM 8.4 mg/dL (8.5-10.1); CREATININE 0.8 mg/dL (0.6-1.0); POTASSIUM 4.5 mmol/L (3.5-5.1); TOTAL BILIRUBIN 0.2 mg/dL (<0.1-1.0); TOTAL PROTEIN 5.5 g/dL (6.4-8.2)
[2019-10-22 05:50] LABS: GGTP 31 U/L (5-55)
[2019-10-22 08:27] VITALS: BP 114/58
--- NOTE | 2019-10-22 09:04 | EKG ---
[facility] [place] [address] ELECTROCARDIOGRAM REPORT Name: ANA NICHOLE Room #: 433-I ADM IN M.R.#: [id number] Admission: 10/21/19 Attend Phys: Bret Morales MD Discharge: Date of : 51 Report #: [id number] THIS REPORT FOR: cc: David Reed MD, Harry MD Lundgren,Darek Perez MD 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 : 1955 Requested By: Mya Melchor Order Number: [id number] MD: Darek Ang Measurements Intervals [place] Rate: 84 P: 66 IA: 143 QRS: -35 QRSD: 78 T: 25 QT: 358 QTc: 424 Interpretive Statements Sinus rhythm Left axis deviation Compared to ECG 05/27/2019 19:32:35 Sinus tachycardia no longer present Ventricular and atrial premature complex(es) no longer present Electronically Signed On 10-22-2019 9:03:22 CDT by Darek Ang [email or web address] <ELECTRONICALLY SIGNED> By: Darek Ang MD, FACC 10/22/19 0903 1558 1558 Darek Ang MD, FAC /EPI
[2019-10-22 11:46] LABS: % SATURATION 13 % (20-39); IRON 36 ug/dL (50-170); TIBC 272 ug/dL (250-450)
--- NOTE | 2019-10-22 13:44 | NUR ---
PT ADMITTED RELATED TO ABD PAIN. CM REVIEWED CHART AND SPOKE WITH CARE TEAM. CM MET WITH PT AT BEDSIDE THIS DAY. PT APPEARED TO BE A&O X4. CM ROLE INTRODUCED. PT INDICATED SHE LIVES IN A HOUSE WITH HER SPOUSE WITH NO STEPS TO ENTER AND NO STEPS SHE USES INSIDE. 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 PT INDICATED SHE HAD FALLEN IN THE PAST AND THAT SHE HAD NEEDED ASSISTANCE FORM HER SPOUSE AT TIMES DUE TO WEAKNESS. PT HAD BEEN ON [facility] 02/17/19 PT'S PCP IS IN THE OFFICE WHERE RAMONE RUST HAD BEEN. PT HAD PSYCHARITRIST WHO FOLLOWES HER IN THE COMMUNITY. 5N HAS ENTERES A CONSULT ON PT. CM TO FOLLOW INDICATED WITH DC PLANNING.
--- NOTE | 2019-10-22 15:05 | P ---
[facility] [place] [address] PROCEDURE REPORT Name: ANA NICHOLE Room #: 433-I ADM IN M.R.#: [id number] Admission: 10/21/19 Attend Phys: Bret Morales MD Discharge: Date of : 51 Report #: [id number] THIS REPORT FOR: cc: David Reed MD, Harry MD McElhinney, Christian C. MD ~ CC: Dr. Clay Morales MD DATE OF SERVICE: 10/22/2019 PROCEDURE PERFORMED: Upper endoscopy with biopsies. HISTORY OF PRESENT ILLNESS: The patient is a 64-year-old female who was admitted through the Emergency Room last evening with nausea, vomiting, and abdominal pain. She does report heartburn symptoms. She denies any dysphagia. She also has reported diarrhea on and off for the last month. CT scan of the abdomen and pelvis on admission showing changes of cirrhosis with multifocal wall thickening seen involving the gastrointestinal tract including stomach, small bowel, and colon. The patient has a previous history of alcohol abuse, but nothing for the last 17 years. Her lipase was mildly elevated in the 600 range today. Pancreas was normal on CT. She also underwent an ultrasound with mesenteric Dopplers. Previous cholecystectomy changes noted. No evidence of ductal dilation in the liver. Hepatic veins are patent, normal direction of flow. Portal vein is patent, normal direction of flow. Plan is for upper endoscopy. DESCRIPTION OF PROCEDURE: The risks and benefits of the procedure were explained to the patient, those risks including, but not limited to bleeding, perforation, and the risk of sedation. She understood these risks and gave informed consent. Sedation was given using propofol per anesthesia. Next, using a standard Olympus upper endoscope, the scope was placed in the patient's mouth and advanced under direct vision through the esophagus, stomach, and into the second portion of the duodenum. The upper and mid esophagus was normal; however, in the distal esophagus, severe grade D erosive esophagitis with ulcerations were noted. There was a mild narrowing in the distal esophagus as well. No active bleeding, no obvious varices, but again, significant esophagitis was noted, likely due to reflux. Overall, there was a diffuse gastritis, likely consistent with portal gastropathy. Biopsies were obtained to rule out H. pylori. The pylorus was normal and patent. The duodenal bulb, first and second portion were normal. Biopsies were also obtained to rule out the possibility of celiac sprue. At this point, the scope was then withdrawn and the procedure terminated. The patient tolerated the procedure well. [address] [address] PROCEDURE REPORT Name: ANA NICHOLE NORMAN Room #: 433-I [facility] IN .R.#: [id number] Admission: 10/21/19 Attend Phys: Bret Morales MD Discharge: Date of : 51 Report #: [id number] IMPRESSION: 1. Severe grade D erosive esophagitis. 2. Gastritis. 3. Otherwise, normal upper endoscopy. RECOMMENDATIONS: 1. Await biopsy results. 2. Recommend b.i.d. PPI therapy and adding liquid Carafate at this time. We will continue to monitor lipase. Pancreas was normal on CT. Thank you for allowing me to participate in her care. <ELECTRONICALLY SIGNED> By: Earnest Becerril MD 10/22/19 1505 1245 1351 Earnest Becerril MD /nt
[2019-10-22 16:01] VITALS: BP 146/65
[2019-10-22 16:07] LABS: ALPHA FETOPROTEIN-TUMOR* 2.6 ng/mL (0.0-8.3); IgG 615 mg/dL (700-1600)
--- NOTE | 2019-10-22 16:17 | NUR ---
PT ASSESSED AT START OF SHIFT. GI CONSULT AND PT WENT FOR EGD SHOWING SEVERE ESOPHAGITIS. DIET CHANGED TO REGULAR SOFT FOODS. CARAFATE STARTED. PT EATING SOME PEACH YOGURT AND PO MEDS GIVEN. PT HAD SOME EMESIS SHORTLY AFTER. REHAB ASSISTANT DIRECTOR OF RESIDENCE LIFE IN THIS AFTERNOON TO DISCUSS GOING UP TO REHAB FOR A WEEK TO GET STRONGER AND PT DECLINED AND AND THEN TALKED OVER W/ AND TOLD RN SHE WAS WILLING TO GO TO REHAB IF IT WOULD HELP HER WALK BETTER. NOTIFIED REHAB UNIT PT CHANGED HER MIND.
[2019-10-22 19:11] VITALS: BP 151/75
--- NOTE | 2019-10-23 00:56 | NUR ---
10/22/191914 ASSUMED CARE OF PT AFTER BEDSIDE REPORT, 2100 ASSESSMENT COMPLETED PT RESTING IN BED WITH NO COMPLAINTS OF PAIN AT THIS TIME, PT UP TO BATHROOM WITH STANDBY ASSIST, IV INFUSING WITHOUT DIFFICULTY, DENIES N/V, FALL PRECAUTIONS IN PLACE, WILL CONTINUE TO MONITOR WITH HOURLY ROUNDING.
[2019-10-23 01:07] LABS: HAV IgM AB (ANTI-HAV IgM) Negative (Negative); HEPATITIS B SURFACE AG Negative (Negative); HEPATITIS C VIRUS AB 0.1 (0.0-0.9)
[2019-10-23 04:54] VITALS: BP 114/61
[2019-10-23 06:46] LABS: PROTIME 10.3 Seconds (9.3-11.4)
[2019-10-23 07:37] VITALS: BP 113/92
[2019-10-23] MEDS ORDERED: SIMVASTATIN80 MG PO (10:55)
[2019-10-23] MEDS ORDERED: CARAFATE 1 GM TA1 G1 PO (10:55)
[2019-10-23] MEDS ORDERED: MELATONIN5 M1 PO (10:56)
[2019-10-23] MEDS ORDERED: VITAMIN C1000 MG PO (10:56)
--- NOTE | 2019-10-23 14:17 | NUR ---
CARE TEAM INDICATED THAT PT IS MEDICALLY STABLE TO DC TO 5N THIS DAY. PT AND SPOUSE ARE AWARE AND AGREEABLE. NO THERE CM INTERVENTION INDICATED. CASE CLOSED.
[2019-10-23 15:08] LABS: ANA INTERPRETATION Negative (Negative)
[2019-10-23 16:07] LABS: CERULOPLASMIN 31.5 mg/dL (19.0-39.0)
[2019-10-23] MEDS ORDERED: LAMICTAL100 MG PO (16:32)
--- NOTE | 2019-10-23 20:17 | NUR ---
PT A&OX4, VSS, DENIES PAIN. PATIENT ABDOMEN SOFT AND ROUND. PATIENT HAS UNSTEADY GAIT AND ON FALL PRECAUTIONS. PATIENT ON 1L OF OXYGEN, DENIES SOA WITH EXERTION. IV REMAINS PATIENT AND INTACT, IV FLUIDS D/C'D PER GI NURSE PRACTITIONER. PATIENT DISCHARGED TO REHAB TODAY. NO SIGNS OF DISTRESS. ALL BELONGINGS SENT WITH PATIENT.
[2019-10-25 17:07] LABS: MITOCHONDRIAL ANTIBODY <20.0 Units (0.0-20.0); SMOOTH MUSCLE ANTIBODY 3 Units (0-19)
--- NOTE | 2019-10-26 17:07 | PATH ---
[facility] [address] [place] [address] PATHOLOGY RPT PROCEDURE Name: ELOISE SZYMANSKI Room #: 445-P DIS IN M.R.#: [id number] Admission: 10/21/19 Date of : 51 Discharge: 10/23/19 Report #: [id number] Path Case #: [id number] [facility] Accession Number: [id number] . 01 Material submitted: . PART A: duodenum - BIOPSY OF DUODENUM R/O SPRUE PART B: stomach - BIOPSY OF GASTRITIS R/O H. PYLORI . 01 Clinical history: . Abdominal pain A. Rule out sprue B. Rule H. pylori . 02 Diagnosis: A. Small bowel, duodenum, endoscopic biopsy: - No diagnostic abnormalities. - Negative for villous blunting or increase in intraepithelial lymphocytes. . B. Gastric mucosa, gastritis R/O H. pylori, endoscopic biopsy: - Mild reactive gastropathy associated with few hyperplastic changes as well as congestion. - Negative for intestinal metaplasia or atrophy. - Negative for Helicobacter pylori (properly controlled immunohistochemical stain performed). . (IUV:jayy; 10/26/2019) QMS 10/26/2019 1352 Local . 02 Electronically signed: . Lakshmi Samson MD, Pathologist NPI- [id number] . 01 Gross description: . A. The specimen is received in formalin, labeled "Eloise Szymanski BX of duodenum" and consists of 4 fragments of pink-pozo tissue measuring 0.9 x 0.4 x 0.3 cm in aggregate which are entirely submitted in A1. . B. The specimen is received in formalin, labeled "Eloise Szymanski BX of gastritis" and consists of 3 fragments of pink-pozo tissue measuring between 0.2 x 0.2 cm and 0.3 x 0.3 cm which are entirely submitted in B1. (SDY; 10/23/2019) SYU/SYU 10/23/2019 1446 Local . 02 Pathologist provided ICD-10: K31.9 . [address] [address] PATHOLOGY RPT PROCEDURE Name: ELOISE SZYMANSKI Room #: 445-P DIS IN M.R.#: [id number] Admission: 10/21/19 Date of : 51 Discharge: 10/23/19 Report #: [id number] Path Case #: [id number] [facility] . [id number], [id number] Specimen Comment: A courtesy copy of this report has been sent to [phone] Specimen Comment: [phone], Specimen Comment: Report sent to ,DR RUST / DR CHOI Performed at: [address], [place], [place] [id number] MD Anil Wilkinson MD Phone: [phone] Performed at: [address] [id number] MD Lakshmi Samson MD Phone: [phone]
== END 2019-10-23 15:55 | DRG 391 ==
LOC: ER 15:50 → 4S 19:22 → EROBS 19:22 → 4S 20:51 → ENTRNSPT 10-23 15:49 → 4S 10-23 15:55
PROVIDERS: Emergency Medicine; Nurse Practitioner; ADMIT Internal Medicine
PROC: 0DB78ZX Excision of Stomach, Pylorus, Via Natural or Artificial Opening Endoscopic, Diagnostic (ICD-10-PCS; principal; 2019-10-22)
PROC: 0DB98ZX Excision of Duodenum, Via Natural or Artificial Opening Endoscopic, Diagnostic (ICD-10-PCS; principal; 2019-10-22)
DX: K20.9 Esophagitis, unspecified (principal); K85.90 Acute pancreatitis without necrosis or infection, unspecified; E46 Unspecified protein-calorie malnutrition; K74.60 Unspecified cirrhosis of liver; R53.1 Weakness; R09.02 Hypoxemia; F31.9 Bipolar disorder, unspecified; F17.210 Nicotine dependence, cigarettes, uncomplicated; R05 Cough; K29.70 Gastritis, unspecified, without bleeding; J44.9 Chronic obstructive pulmonary disease, unspecified; G47.00 Insomnia, unspecified; M81.0 Age-related osteoporosis without current pathological fracture; Z88.5 Allergy status to narcotic agent; Z79.899 Other long term (current) drug therapy; Z88.0 Allergy status to penicillin; Z88.8 Allergy status to other drugs, medicaments and biological substances; Z68.26 Body mass index [BMI] 26.0-26.9, adult; Z86.010 Personal history of colon polyps
CPT/HCPCS: 10102; 10195; 70005

== ENCOUNTER 2019-10-23 09:20 | Inpatient (IN) | payer OTHER ==
[~2019-10-23] VITALS: Ht 170.2 cm; Wt 59.4 kg
--- NOTE | ~2019-10-23 | PLAN ---
[facility] [place] [address] REHAB UNIT PLAN OF CARE Name: ANA NICHOLE Room #: 514-P ADM IN M.R.#: [id number] Admission: 10/23/19 Attend Phys: Lars Whitlock MD Discharge: Date of : 51 Report #: [id number] THIS REPORT FOR: //name// CC: Lars Reed DATE OF SERVICE: 10/26/2019 PROGRESS NOTE AND OVERALL PLAN OF CARE HISTORY OF PRESENT ILLNESS: The patient is seen back today in followup. She is in no distress. Last recorded temperature is 97.6, pulse 72, respirations 18, and blood pressure 146/89. The patient desires to have nicotine patch added and she notes she does have some craving for tobacco. She is alert, on nasal prong O2. Transfers are supervision. She was able to ambulate up to 250 feet. Did not utilize gait aids, working on increasing balance and endurance. Working on improving her balance, noted to be a high fall risk. Lower body dressing is min assist. Cognition reveals ixzzavwn-zh-[id number] deficits. ASSESSMENT: 1. Gait instability with frequent falls. 2. Severe esophagitis. 3. Hypoxia, currently on 1 liter nasal cannula. 4. Liver cirrhosis. 5. Protein-calorie malnutrition. 6. Chronic cough and probable chronic obstructive pulmonary disease. 7. Bipolar disorder. 8. Tobacco abuse. 9. History of alcohol abuse. PLAN: The overall plan of care is based on the preadmission screen, post-admission physician evaluation and information garnered from therapy assessments. 1. Estimated length of stay probably around 5-10 days pending progress. 2. Medical prognosis is reasonably good. 3. Anticipated interventions include the interdisciplinary acute inpatient rehabilitation program. 4. Anticipated functional outcomes would be for the patient to become modified independent with transfers, mobility and ADLs, so that she can hopefully return back to her prior living situation. 5. Discharge destination would be back home with her . 6. Expected therapy by discipline includes PT, OT and speech 1 hour per day [address] [address] REHAB UNIT PLAN OF CARE Name: ANA NICHOLE Room #: 514-P [facility] IN M.R.#: [id number] Admission: 10/23/19 Attend Phys: Lars Whitlock MD Discharge: Date of : 51 Report #: [id number] each five days a week throughout the duration of the acute inpatient rehabilitation stay. By: 0827 0935 Lars Whitlock MD /nt
[~2019-10-23 09:20] MED LIST changes: +CENTRUM WOMEN1 EACH PO; +PANTOPRAZOLE SO40 M1 PO; +VITAMIN C1000 MG PO; +VITAMIN D35000 UNI2 PO
[2019-10-23] MEDS ORDERED: CARAFATE 1 GM TA1 G1 PO (10:55)
[2019-10-23] MEDS ORDERED: SIMVASTATIN80 MG PO (10:55)
[2019-10-23] MEDS ORDERED: MELATONIN5 M1 PO (10:56)
[2019-10-23] MEDS ORDERED: VITAMIN C1000 MG PO (10:56)
[2019-10-23 16:20] VITALS: BP 143/94
[2019-10-23] MEDS ORDERED: LAMICTAL100 MG PO (16:32)
--- NOTE | 2019-10-23 18:52 | NUR ---
PATIENT ARRIVED ON UNIT AROUND 1615, A&O X 4, NO ACUTE DISTRESS NOTED. VSS, O2 ON 1L VIA NC. PT DENIED PAIN OR DISCOMFORT. LUNG CLEAR, HYPOACTIVE BOWEL SOUNDS, REG HR. SKIN INTACT, NO WOUNDS, INCISIONS, REDNESS OR ANY SKIN ISSUES NOTED. IV TO RFA. ADMISSION ASSESSMENT COMPLETED, MEDS GIVEN PER ORDERS. BED IN LOWEST POSITION, CALL LIGHT WITHIN REACH, WWILL CONTINUE TO MONITOR PER POC.
[2019-10-23 19:45] VITALS: BP 144/86
--- NOTE | 2019-10-23 20:20 | NUR ---
PATIENT'S ORACIO [phone] RECIEVED A CALL FROM ALISONRentlyticsMalika TO [facility] FOR CARAFATE AND SIMVASTATIN 10 MG (SHE USUALLY TAKES 40 MG) AND HE WASN'T SURE WHY. HOME MEDS REVIEWED TO MAKE SURE SHE WAS GETTING HOME MEDS, I LET HIM KNOW THAT SHE DOES NOT HAVE VALIUM OR AMBIEN ORDERED SINCE 10/19
--- NOTE | 2019-10-24 02:02 | NUR ---
THERAPISTS' ROLES EXPLAINED TO PATIENT, SHE ALSO NOTES RIGHT SHOULDER TROUBLE PATIENT MAIN GOAL LAST EVENING WAS TO SLEEP WELL TONIGHT, GIVEN MELATONIN ALONG WITH SCHEDULED MEDS AND HAS BEEN RESTING WELL. BED ALARM SET REMINDER SINCE MULTIPLE HS MEDS THAT CAN CAUSE DROWSINESS, ROOM IS CLOSE TO NURSE STATION. O2 ONE LITER PER NASAL CANNULA.
[2019-10-24 04:32] LABS: CALCIUM 9.1 mg/dL (8.5-10.1); CREATININE 0.6 mg/dL (0.6-1.0); POTASSIUM 4.1 mmol/L (3.5-5.1)
[2019-10-24 04:40] LABS: HEMOGLOBIN 12.9 gm/dL (12.0-15.0); MCH 28.8 pg (26.0-34.0); MCHC 32.2 g/dL (28.0-37.0); MCV 89.5 fL (80.0-100.0); RBC 4.47 mil/uL (4.20-5.00); RDW 17.2 % (10.5-14.5); WBC 4.4 thou/uL (4.0-11.0)
[2019-10-24 08:08] VITALS: BP 121/58
[2019-10-24 10:18] VITALS: BP 115/47
[2019-10-24 10:19] VITALS: BP 107/68
--- NOTE | 2019-10-24 14:46 | NUR ---
ASSUMED CARES AT 0700. PT ORIENTED TO PERSON AND PLACE ONLY, FORGETFUL AND CONFUSED. DENIES PAIN AT THIS TIME. VITALS REMAIN STABLE. PT C/O DIZZINESS ORTHOSTATIC BP COMPLETED, SEE VITALS FOR RESULTS. LS COARSE BLE, PT CONTINUES TO HAVE A CONGESTED COUGH. SATS >90% ON 1L O2 , DESATS NOTED ON RA. PT BECOMING ANGRY REGARDING HAVING TO CALL FOR ASSISTANCE BEFORE GETTING UP, WANTS TO BE ABLE TO GETUP WITHOUT HELP. ABDOMEN SOFT AND ROUND, BS ACTIVE*4, LAST REPORTED BM 10/20/19. PT UP WITH 1 SBA, AND TOLERATED WELL. PARTICIPATED IN ALL THERAPIES. Q1H VISUAL CHECKS. CALL LIGHT WITHIN REACH. FALL PRECAUTIONS IN PLACE
[2019-10-24 20:00] VITALS: BP 167/87
--- NOTE | 2019-10-24 21:00 | NUR ---
REFUSING GLYCERIN SUPPOSITORY, STATES LARGE NORMAL BM TODAY. ENCOURAGED TO LET STAFF SEE NEXT BM BEFORE FLUSHING IT
[2019-10-25] VITALS (7 sets, daily range): BP systolic 112–146; BP diastolic 70–89
--- NOTE | 2019-10-25 00:25 | NUR ---
ABLE TO CHANGE INTO PAJAMA PANTS UNASSISTED AT HS. MELATONIN PER REQUEST AND HAS BEEN RESTING ON HER SIDE SINCE 2129. ENCOURAGED TO CALL FOR ASSIST UP FOR HER OWN SAFETY. BED ALAARM ON AND FREQUENTLY OBSERVED WITH ROOM NEAR STATION
[2019-10-25 06:47] LABS: ALBUMIN 3.1 g/dL (3.4-5.0); DIRECT BILIRUBIN 0.2 mg/dL (<0.1-0.2); TOTAL BILIRUBIN 0.2 mg/dL (<0.1-1.0); TOTAL PROTEIN 6.2 g/dL (6.4-8.2)
--- NOTE | 2019-10-25 13:05 | NUR ---
ASSUMED CARE OF PT AT 0715. PT IS A&OX4. IS IMPULSIVE. DENIES PAIN. IS ON 1L OF . IS UP WITH STANDBY ASSIST & GB. FALL PRECAUTIONS & HOURLY ROUNDING CONTINUED THIS SHIFT. PT HAS BEEN INSTRUCTED TO CALL FOR ASSISTANCE IF NEEDED BETWEEN ROUNDING. IS STABLE. PT REPORTED HAVING A LARGE BM LAST NIGHT & IS REFUSING SUPPOSITORIES AT THIS TIME. PT IS CURRENTLY SITTING UP IN RECLINER. CHAIR ALARM ON. CALL LIGHT & POSESSIONS WITHIN REACH. WILL CONTINUE TO MONITOR. PT WOULD LIKE TO BE MOD I IN ROOM. WILL PASS INFORMATION TO NIGHT NURSE TO HAVE THERAPY/DR. GRANDE EVALUATE TO CONSIDER.
--- NOTE | 2019-10-26 02:54 | NUR ---
patient aox4 makes needs known at time. patient impulsive at time. patient re educated to use the call. patient is stand by assistance with adl, bed mobility, transfer and toileting. patient on 1L of oxygen no soa or distress noted this shift. patient ambulates with steady gaits. patient c/o dizzness this shift. patient re educated to get out of the bed slowly. fall precaution and personal item within reach. patient in bed asleep at this time breathing regular and unlaboured.
[2019-10-26 08:30] VITALS: BP 108/61
[2019-10-26 08:31] VITALS: BP 112/67
[2019-10-26 08:32] VITALS: BP 108/62
--- NOTE | 2019-10-26 12:45 | NUR ---
chart review. noted pt up walking with o2 per nasal cannula with tax attorney assistance. cm visited with pt after she completed her walk, via phone call. intro to cm, dcp and team meeting. pt preferrs going by [facility]. noted she lives with spouse, she is independent. no dme needs. no past hh or rehab. noted she has had an sbh stay in the past. no concerns or needs voice during phone call. will cont following as needed for dc needs.
--- NOTE | 2019-10-26 12:52 | NUR ---
Nutrition: pt admitted with gait instability, frequent falls and severe grade D esophagitis. GI following. Hx liver cirrhosis, ETOh hx, bipolar. Consult received related to poor intake. Pt reports decreased po for a few days on acute due to N/V, abdominal pain but is now eating 100% of most meals past few days. Ordering meals. Current weight 133#, pt reports UBW 133-135#, stable. On vitamin D, ascorbic acid and MVI. Protein calorie malnutrition documented by physician-defer dx. Consider low nutrition risk.
--- NOTE | 2019-10-26 19:18 | NUR ---
ASSUMED CARES AT 0700. REPORTS SLEPT FAIR LAST NIGHT. ORTHOSTATIC B/P TAKEN LYING 108/61, HR 73, SITTING 112/67, HR 81, STANDING 108/62, HR 87. CALLED EARLIER AND INFORMED PT WAS ON ATORVASTATIN 4OMG AT HS NOT 10MG. NOTIFIED IZZY TO RESUME HOME'S MEDS DOSE. ALSO NOTICED B/P LOW. PT HAS BEEN ON FLOMAX 0.4MG BID. URINATES WELL. IZZY D/C MORNING DOSE. INFORMED PT AND HER ABOUT MEDS CHANGE. ALERT AND ORIENTED X4, FORGETFUL AT TIME. DENIES PAIN AT THIS TIME. DENIES DIZZINESS TODAY. LS COARSE BLE, PT CONTINUES TO HAVE A CONGESTED COUGH. SATS >94% ON 1L O2 , DESATS NOTED ON RA. REASSESSMENT PER CHART. ABDOMEN SOFT AND ROUND, BS ACTIVEX4, LAST REPORTED BM 10/25/19. PT UP WITH 1 SBA, AND TOLERATED WELL. OFFERED SUPPORTIVE CARE. MEDS GIVEN ORDERED. NICOTINE PATCH APPLIED TO RIGHT BACK SHOULDER. PT SAID IT HELPS WITH CIGARET CRAVING. PT UP AND PARTICIPATED IN ALL THERAPIES. Q1H VISUAL CHECKS. CALL LIGHT WITHIN REACH. FALL PRECAUTIONS IN PLACE, CALL LIGHT WITHIN REACH. NO IMPULSIVE TODAY. GAVE REPORT TO NIGHT NURSE TO CONTINUE TO MONITOR.
[2019-10-26 20:06] VITALS: BP 118/62
--- NOTE | 2019-10-26 23:08 | NUR ---
pt care assumed with pt watching tv in recliner.pt is alert and oriented.pt appear to be in no acute stress.pt is up with standby assist.pt care handed over to another nurse at 2300 with pt in bed abd appeared to be sleeping
--- NOTE | 2019-10-26 23:34 | NUR ---
TOOK OVER CARE OF PT AT 2300 FROM OFF GOING NURSE. HOURLY ROUNDING. WILL CONTINUE TO MONITOR.
[2019-10-27 08:00] VITALS: BP 123/74
--- NOTE | 2019-10-27 13:41 | NUR ---
team meeting, recommendation: julio off oxygen and is currently on RA about 90%, balance and dizziness. dc 10/29/2019 outpt pt. to cont assistance with pills and bills. no driving until cleared by md to drive.
[2019-10-27 19:16] VITALS: BP 138/86
--- NOTE | 2019-10-27 19:57 | NUR ---
ASSUMED CARE AT 0700, PT A&O X 4, IMPULSIVE AND FORGETFUL AT TIMES. VSS O2 ON RA. PT C/O HEADACHE RELIEVED WITH PRN TYLENOL. TOLERATES MEDS WHOLE WITH WATER AND PARTICIPATED IN MARQUITA THERAPIES. SITTING IN RECLINER, CALL LIGHT WITHIN REACH, WILL CONTINUE TO MONITOR PER POC.
--- NOTE | 2019-10-28 03:41 | NUR ---
HEADACHE MILDER LAST EVENIHG, HER NUMBER ONE GOAL WAS TO GET SOME SLEEP TONIGHT SHE COULDN'T GET ANY SLEEP ON SATURDAY NIGHT. EXPALINED TO PATIENT THAT SHE WAS RETURNING TO HER VALIUM AND AMBIEN LIKES SHE TAKES THEM AT HOME. APPEARED ASLEEP 30 MINUTES AFTER THIS DISCUSSION PILLS WERE GIVEN AND IS RESTING QUIETLY ON HER RIGHT SIDE NOW. WAS STEADY WHEN UP TO TOILET AT 2014 LAST EVENING AFTER USING CALL LIGHT PRIOR TO GETTING UP.
[2019-10-28 08:34] VITALS: BP 116/65
--- NOTE | 2019-10-28 11:46 | NUR ---
ALAN reviewed chart. SW attempted to contact pt in her room. Pt did not answer the phone. SW spoke with pt's , Jourdan, via phone to confirm discharge plan for tomorrow. Pt will discharge home and do outpatient therapy at [facility]. Pt's spouse states he will pick pt up tomorrow around 1200. Pt's spouse will call the unit when he is at the front entrance. Staff to take pt to the front entrance. Case Mgmt is available to assist as needed with discharge planning.
--- NOTE | 2019-10-28 14:06 | NUR ---
ASSUMED CARES AT 0700. PT AWAKE, ALERT AND ORIENTED*3. FORGETFUL AND IMPULSIVE. C/O HEADACHE, ACETAMINOPHEN ADMINISTERED NEEDED. VITALS REMAIN STABLE. PT PARTICIPATED IN ALL THERAPIES AND TOLERATED WELL. DC PLAN FOR TOMORROW, PT EXCITED. UP WITH SBA &GB. FREQ. VISUAL CHECKS. CALL LIGHT WITHIN REACH. FALL PRECAUTIONS IN PLACE
[2019-10-28 16:40] VITALS: BP 141/83
[2019-10-28 19:40] VITALS: BP 148/95
--- NOTE | 2019-10-29 03:27 | NUR ---
Assumed pt care at 1900. Pt's A/OX4,coperative with cares and not impulsive this shift. Denies pain on assessment. VSS. Up with AX1/GB,unsteady gait noted. Continent of B&B. Nocturnal desat study initiated and sats ranging 87-92% on RA. Fall precautions in place,frequent monitoring on pt. Resting w/o distress noted, will continue to monitor pt.
[2019-10-29 08:00] VITALS: BP 125/96
[2019-10-29] MEDS ORDERED: AMBIEN 10 MG TA10 MG PO (08:09)
[2019-10-29] MEDS ORDERED: TOPROL XL25 MG PO ×2 (08:10→16:06)
[2019-10-29] MEDS ORDERED: REMERON 30 MG T30 M1 PO (08:10)
[2019-10-29] MEDS ORDERED: LIPITOR40 MG PO (08:10)
[2019-10-29] MEDS ORDERED: COLACE100 MG PO (08:10)
[2019-10-29 10:58] VITALS: BP 125/96
--- NOTE | 2019-10-29 12:47 | NUR ---
ASSUMED CARES AT 0700. PT AWAKE, ORIENTED*3, FORGETFUL AND IMPULSIVE. C/O HEADACHE, ACETAMINOPHEN GIVEN WITH NO EFFECT, IBUPROFEN GIVEN AND PT VERBALISED COMPLETE RELIEF OF PAIN. CT HEAD DONE, CLEAR. O2 SATS 88-93% ON 2L OXYGEN VIA NC THIS AM. NOCTURNAL DESAT COMPLETED LAST NIGHT, AWAITING RESULTS. PT UP WITH 1 MIN ASSIST, GB AND TOLERATED WELL. Q1H VISUAL CHECKS. CALL LIGHT WITHIN REACH. FALL PRECAUTIONS IN PLACE
--- NOTE | 2019-10-29 14:04 | NUR ---
DISCHARGE NOTE: SW reviewed chart and spoke with nursing and rehab physician's INFORMATICA MDM DEVELOPER. Pt is medically stable for discharge home today. Nocturnal desat study completed last night. Pt needs 2L during the night. SW spoke with pt via phone to discuss need for nocturnal home O2. Pt verbalized understanding. Options provided for DME companies. No preference voiced. SW confirmed pt's home address and phone number. SW faxed clinical info and script to [facility]. Notified [facility] liaison of new nocturnal O2 order. [facility] to contact pt to coordinate delivery of O2 equipment later today. Contact info for [employer] placed in pt's discharge summary. Pt's family to provide transportation home. Pt to do outpatient therapy at [facility]. No additional SW needs identified at this time, but is available to assist should needs arise.
--- NOTE | 2019-10-30 15:43 | H ---
[facility] [place] [address] [place] [address] HISTORY AND PHYSICAL Name: ANA NICHOLE Room #: 514-P [facility] IN M.R.#: [id number] Admission: 10/23/19 Attend Phys: Lars Whitlock MD Discharge: 10/29/19 Date of : 51 Report #: [id number] THIS REPORT FOR: cc: David Reed MD,David Whitlock,Lars Burleson MD ~ CC: Lars Reed DATE OF SERVICE: 10/23/2019 HISTORY AND PHYSICAL AND POSTADMISSION PHYSICIAN EVALUATION HISTORY OF PRESENT ILLNESS: The patient is a 64-year-old white female who was originally admitted to [facility] with gait instability, frequent falls and complaints of abdominal pain and nausea. She was seen by GI and had a CT of the abdomen that showed liver cirrhosis. She has a history of ETOH abuse, last heavy drinking was 17 years ago. She underwent an EGD 10/22/2019 showing severe esophagitis. She was started on PPI b.i.d., Carafate, advancing her diet. Premorbidly, she has had problems with losing balance, frequent falls, requiring assistance from her to get up. He assisted her with showers because of her decreased balance. She has been admitted now for acute in-hospital inpatient rehabilitation. PAST MEDICAL HISTORY: Includes bipolar disorder, recovering alcoholic. Psych history within an inpatient stay. Chronic tobacco abuse, probable COPD. MEDICATIONS: Please see the full medication listing. ALLERGIES: As noted. SOCIAL HISTORY: As noted above. She has been living at home with her . No stairs. Did not utilize assistive devices, but was having problems with decreased balance and falls. HABITS: As noted. She is continuing to be a current every day smoker. REVIEW OF SYSTEMS: No current complaints of chest pain, shortness of breath or abdominal discomfort. Please see the full review of systems as noted in the history and physical documentation. PHYSICAL EXAMINATION: GENERAL: Agree with the documented examination. The patient is in no distress. When seen, she is alert, pleasant of slender build, appropriately answering basic questions. HEENT: Facies were symmetric. [facility] [address] [place] [address] HISTORY AND PHYSICAL Name: ANA NICHOLE Room #: 514-P [facility] IN [facility].#: [id number] Admission: 10/23/19 Attend Phys: Lars Whitlock MD Discharge: 10/29/19 Date of : 51 Report #: [id number] VITAL SIGNS: Temperature 97.8, pulse 84, respirations 18, blood pressure 113/92. The patient was alert. CHEST: Sounded reasonably clear, some diffuse decreased breath sounds. CARDIOVASCULAR: Regular rate and rhythm. ABDOMEN: Bowel sounds positive, nontender. GENITOURINARY AND RECTAL: Deferred. EXTREMITIES: Functional range of motion of the upper extremities. Strength is grade 4-/5. DTRs are trace to 1. Lower extremities, no focal calf swelling, functional range of motion, strength is grade 4-/5. DTRs are trace to 1. She does need min assist for sit to stand, has some decreased standing static balance. Cranial nerves appear to be intact. There is no focal calf swelling. ASSESSMENT: A 64-year-old white female with the following problem list: 1. Gait instability with frequent falls. 2. Severe esophagitis. 3. Hypoxia not currently on O2. 4. Liver cirrhosis. 5. Protein-calorie malnutrition. 6. Chronic cough and probable chronic obstructive pulmonary disease. 7. Bipolar disorder. 8. Tobacco abuse. 9. History of alcohol abuse. PLAN: The patient has been admitted for acute in-hospital inpatient rehabilitation. From a postadmission physician evaluation perspective, there are no relevant changes since the preadmission screening. Please see the above review of prior current medical and functional conditions and comorbidities. Please see the patient's previous and current functional status. As far as risk of complications, the patient has multiple medical comorbidities as noted above. Initial plan of care involves the interdisciplinary acute inpatient rehabilitation program. Measurable functional goals would be for the patient to become modified independent with transfers, mobility, ADLs and to improve her overall balance to hopefully decrease falls. Prognosis is reasonably good with estimated length of stay probably at least 7-10 days. Potential barriers would include her multiple medical comorbidities and decreased functional status. <ELECTRONICALLY SIGNED> By: Lars Whitlock MD 10/30/19 1543 37 33 Lars Whitlock MD /nt
== END 2019-10-29 14:46 | disposition home or self-care (01) | DRG 91 ==
PROVIDERS: Internal Medicine; Nurse Practitioner Family; ADMIT Physical Medicine & Rehabilitation
DX: R26.9 Unspecified abnormalities of gait and mobility (principal); K85.90 Acute pancreatitis without necrosis or infection, unspecified; E46 Unspecified protein-calorie malnutrition; R29.6 Repeated falls; K20.9 Esophagitis, unspecified; F31.9 Bipolar disorder, unspecified; R33.9 Retention of urine, unspecified; R09.02 Hypoxemia; E86.0 Dehydration; Z90.49 Acquired absence of other specified parts of digestive tract; Z60.2 Problems related to living alone; Z87.11 Personal history of peptic ulcer disease; J44.9 Chronic obstructive pulmonary disease, unspecified; F01.50 Vascular dementia, unspecified severity, without behavioral disturbance, psychotic disturbance, mood disturbance, and anxiety; F11.90 Opioid use, unspecified, uncomplicated; K29.70 Gastritis, unspecified, without bleeding; F17.210 Nicotine dependence, cigarettes, uncomplicated; I10 Essential (primary) hypertension; R60.9 Edema, unspecified; K70.30 Alcoholic cirrhosis of liver without ascites; F41.9 Anxiety disorder, unspecified; F10.21 Alcohol dependence, in remission; Z86.010 Personal history of colon polyps; Z88.6 Allergy status to analgesic agent; Z68.20 Body mass index [BMI] 20.0-20.9, adult; Z88.8 Allergy status to other drugs, medicaments and biological substances; Z88.0 Allergy status to penicillin; Z79.899 Other long term (current) drug therapy
CPT/HCPCS: 10112

== ENCOUNTER → 2020-10-19 | Outpatient (CLI) | payer OTHER ==
[~2020-10-19] MED LIST changes: +AMBIEN 10 MG TA10 MG PO; +CARAFATE 1 GM TA1 G1 PO; +COLACE100 MG PO; +DESYREL150 MG PO; +EMGALITY S120 MG/1 M SUBQ; +FOSAMAX 70 MG T70 MG PO; +LAMICTAL100 MG PO; +LIPITOR40 MG PO; +MAXALT10 MG PO; +MELATONIN5 M1 PO; +REMERON 30 MG T30 M1 PO; +TOPROL XL25 MG PO; +VALIUM10 MG PO
== END ==
LOC: LAB 13:44
PROVIDERS: ATTEND Internal Medicine Gastroenterology
DX: Z01.812 Encounter for preprocedural laboratory examination (principal); Z20.822 Contact with and (suspected) exposure to COVID-19

== ENCOUNTER → 2020-10-24 | Outpatient (CLI) | payer OTHER ==
[~2020-10-24] VITALS: Ht 170.2 cm; Wt 62.6 kg
--- NOTE | 2020-10-25 18:06 | PATH ---
[facility] [address] [address] [place] [address] PATHOLOGY RPT PROCEDURE Name: ANA NICHOLE Room #: REG [facility]..#: [id number] Admission: 10/24/20 Date of : 51 Discharge: Report #: [id number] Path Case #: [id number] [facility] Accession Number: [id number] . 01 Material submitted: . PART A: colon - BIOPSY ASCENDING COLON POLYP. Modifiers: ascending PART B: colon - BIOPSY TRANSVERSE COLON POLYP. Modifiers: transverse PART C: colon - BIOPSY DESCENDING COLON POLYP X3. Modifiers: descending PART D: sigmoid colon - BIOPSY SIGMOID COLON POLYP . 01 Clinical history: . COLONOSCOPY HISTORY OF COLON POLYPS POLYPS . 02 Diagnosis: A. Polyp, ascending colon polyp, endoscopic biopsy: - Tubular adenoma, multiple fragments. - Negative for high grade dysplasia. . B. Polyp, transverse colon polyp, endoscopic biopsy: - Serrated polyp. - Negative for dysplasia. . C. Polyp x 3, descending colon polyp, endoscopic biopsy: - Tubular adenoma identified in two fragments; negative for high grade dysplasia. - Hyperplastic polyp in one fragment; negative for dysplasia. . D. Polyp, sigmoid colon polyp, endoscopic biopsy: - Tubular adenoma, multiple fragments. - Negative for high grade dysplasia. (IUV/db; 10/25/2020) LBQ 10/25/2020 1512 Local . 02 Electronically signed: . Lakshmi Samson MD, Pathologist NPI- [id number] . 01 Gross description: . A. The specimen is received in formalin, labeled "ANA NICHOLE, ascending colon polyp" and consist of multiple fragments of soft pozo tissue measuring up to 0.6 cm. Entirely submitted in A1. . B. The specimen is received in formalin, labeled "ANA NICHOLE, biopsy transverse colon polyp" and consist of multiple fragments of soft pozo tissue measuring up to 0.6 cm. Entirely submitted in B1. [address] [address] PATHOLOGY RPT PROCEDURE Name: ANA NICHOLE [id number] Ad[facility]: 10/24/20 Date of : 51 Discharge: Report #: [id number] Path Case #: [id number] . C. The specimen is received in formalin, labeled "ANA NICHOLE, biopsy descending colon polyp additionally labeled *3 on the requisition" and consist of 3 fragments of soft pozo tissue measuring up to 0.8 cm. Entirely submitted in C1. . D. The specimen is received in formalin, labeled "ANA NICHOLE, biopsy sigmoid colon polyp" and consist of 2 fragments of soft pozo tissue measuring up to 0.7 cm. Entirely submitted in D1.([facility]; 10/24/2020) ANGELES/ANGELES 10/24/2020 1858 Local . 02 Pathologist provided ICD-10: D12.2, K63.5, D12.4, D12.5 . 02 CPT . 121637, 792812, [id number], [id number] Specimen Comment: A courtesy copy of this report has been sent to [phone] Specimen Comment: [phone], Specimen Comment: Report sent to ,DR RUST / DR SHELLEY Performed at: [address], [place] [id number] MD Hal Bradley MD Phone: [phone] Performed at: [address] [id number] MD Lakshmi Samson MD Phone: [phone]
== END | disposition home or self-care (01) ==
LOC: GI 07:51
PROVIDERS: ATTEND Internal Medicine Gastroenterology
DX: Z12.11 Encounter for screening for malignant neoplasm of colon (principal); Z86.010 Personal history of colon polyps; D12.2 Benign neoplasm of ascending colon; D12.4 Benign neoplasm of descending colon; D12.5 Benign neoplasm of sigmoid colon; K57.30 Diverticulosis of large intestine without perforation or abscess without bleeding; K21.9 Gastro-esophageal reflux disease without esophagitis; J44.9 Chronic obstructive pulmonary disease, unspecified; E78.00 Pure hypercholesterolemia, unspecified; G47.30 Sleep apnea, unspecified; F31.9 Bipolar disorder, unspecified; F41.9 Anxiety disorder, unspecified; F17.210 Nicotine dependence, cigarettes, uncomplicated; G43.909 Migraine, unspecified, not intractable, without status migrainosus; Z98.890 Other specified postprocedural states; Z79.899 Other long term (current) drug therapy; Z90.49 Acquired absence of other specified parts of digestive tract; Z88.0 Allergy status to penicillin; Z88.2 Allergy status to sulfonamides
CPT/HCPCS: 62110; 62900

== ENCOUNTER 2020-11-28 10:11 | Inpatient (IN) | payer OTHER ==
[2020-11-28] VITALS (18 sets, daily range): BP systolic 107–148; BP diastolic 61–82
[~2020-11-28] VITALS: Ht 167.6 cm; Wt 62.3 kg
--- NOTE | ~2020-11-28 | HC ---
[facility] [place] [address] CONSULTATION Name: ANA NICHOLE Room #: 242-P ADM IN M.R.#: [id number] Admission: 11/28/20 Attend Phys: Basil Angela MD Discharge: Date of : 51 Report #: [id number] THIS REPORT FOR: cc: FAM - Family physician unknown FAM - Family physician unknown Luis Alfredo Perez MD ~ DOC #: [id number] Luis Alfredo Perez MD DATE OF SERVICE: 11/30/2020 HISTORY OF PRESENT ILLNESS: This is a 65-year-old female patient who is unable to provide any history at all. The patient is sedated and is on vent. I talked to the nurse and I reviewed the records. Dr. Mariscal called in, they nicely updated me on the patient's history. The gives a pretty involved history in this patient. This patient used to drink very heavily, but then went to treatment and was able to stop drinking alcohol and last time she drank alcohol was in 2005. 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 Now, she continued to smoke and was having some episodes where she will stare into the blank and will be confused after that. She saw , an epileptologist at [facility] and she is on gabapentin and Lamictal. She was on those medications at home. She also has bipolar, so I am not certain whether she is on Lamictal because of bipolar or whether she is on Lamictal because of epilepsy or combination. She also has migraine and she takes calcitonin antagonist. REVIEW OF SYSTEMS: Extensive. She has a history of COPD. She takes oxygen at night. She was having these spells which are unusual. Most of the time during the day she will be able to walk, but then she will have no strength in the arms or legs. These spells can come at night or when she is doing something. They last just for a small amount of time. There is no tonic-clonic activity and the mentation looks all right during that time. She has a very extensive history for numerous medical issues, which include that she has a bipolar, she becomes agitated, she has a history of generalized weakness, migraine and history of , even in hospital, she was . She has a history of hypoxia. She has a history of migraine, history of depression, history of pneumonia, tobacco dependency, at one time she had pancreatitis and urinary tract infection. This was a relevant 14-point review of systems. PAST MEDICAL HISTORY: Positive for bipolar disorder and question of seizure. FAMILY HISTORY: Unremarkable. SOCIAL HISTORY: She smokes. PHYSICAL EXAMINATION: Not possible because she is sedated, but her reflexes are [facility] [address] [place] [address] CONSULTATION Name: ANA NICHOLE Room #: 242-P [facility] IN M.R.#: [id number] Admission: 11/28/20 Attend Phys: Basil Angela MD Discharge: Date of : 51 Report #: [id number] elicitable in the lower extremities. She does not have any movement because she is sedated and she is still intubated. The nurses tell me that they were close to extubating her today. IMPRESSION: It is unlikely this patient has myasthenia gravis or Guillain-Commiskey syndrome. That cannot be fully excluded, but unlikely because the reflexes are present making Guillain-Commiskey unlikely and these are episodes, which last short period of time. She has a history of seizure and they can be seizure, but they are not typical for seizure. A CT scan demonstrated extensive disease, which is chronic. PLAN: I will suggest doing an MRI if it can be done with an MRA that will be to look for any acute disease. She had a carotid Doppler within a year that did not show any hemodynamically significant stenosis. I will suggest keeping her on the gabapentin and Lamictal she was on, but they do not come in IV form. If they need to be given some and I will defer that to the hospitalist. I will check too with Dr. Ashford again and talk about my impression on this patient. More than 50 minutes of time was spent taking care of this patient today and majority of that time was spent counseling and coordinating. Thank you very much for this referral. MD ALLISON Richardson/JENNIFER/ZOYA By: [id number] Luis Alfredo Perez MD /nt
--- NOTE | ~2020-11-28 | EEG ---
[facility] [place] [address] ELECTROENCEPHALOGRAM Name: ANA NICHOLE Room #: 242-P ADM IN M.R.#: [id number] Admission: 11/28/20 Attend Phys: Basil Angela MD Discharge: Date of : 51 Report #: [id number] THIS REPORT FOR: //name// DOC #: [id number] Luis Alfredo Perez MD DATE OF SERVICE: 12/01/2020 This patient is being evaluated for altered mental status. EEG was done by placing the electrode by standard 10-20 system of electrode placement. Both referential and sequential montages were used for recording. Background activity in this patient's EEG is about 8 Hz and 30 microvolt. In between that voltage decreases significantly. Photic stimulation is unremarkable. Throughout the record, no active epileptiform activity was noticed. IMPRESSION: This is an abnormal EEG because it is disorganized and poorly formed. That is a nonspecific abnormality which can occur with encephalopathy, effect of psychotropic medication, dementia, etc. Clinical correlation is recommended. Luis Alfredo Perez MD PK/PRO By: [id number] Luis Alfredo Perez MD /nt
[2020-11-28 10:22] LABS: BE(vivo) 5.9 mmol/L (-2 to +3); HCO3 35.5 mmol/L (22.0-26.0); sO2 69.5 % (92.0-98.0)
--- NOTE | 2020-11-28 10:35 | NUR ---
REVIEWED TRIAGE NOTE, AGREE WITH ASSESSMENT. RT AT BEDSIDE PLACING PT ON BIPAP AT THIS TIME. PT IS LETHARGIC IN NATURE BUT IS ALERT AND ORIENTED X4, PT UNABLE TO ANSWER MANY QUESTIONS AT THIS TIME D/T LETHARGY, WILL ASSESS FURTHER WHEN PT IS MORE STABLE. PT VSS ON BIPAP. NO APPARENT INJURIES NOTED. PT IS IN NSR ON THE MONITOR AT THIS TIME. WILL CLOSELY MONITOR PT
[2020-11-28 10:38] LABS: PO2 43.2 mmHg (80.0-100.0)
[2020-11-28 10:50] LABS: ABSOLUTE NEUTROPHILS 8.9 thou/uL (1.4-8.2); BASOPHILS 0.3 % (0.0-2.0); EOSINOPHILS 0.1 % (0.0-3.0); HEMATOCRIT 39.3 % (37.0-47.0); HEMOGLOBIN 12.8 gm/dL (12.0-15.0); LYMPHOCYTES 5.9 % (24.0-44.0); MCH 29.6 pg (26.0-34.0); MCHC 32.6 g/dL (28.0-37.0); MCV 90.8 fL (80.0-100.0); MONOCYTES 8.2 % (1.0-8.0); PLATELET COUNT 276 thou/uL (150-400); POLYS 85.5 % (36.0-66.0); RBC 4.33 mil/uL (4.20-5.00); RDW 16.1 % (10.5-14.5); WBC 10.4 thou/uL (4.0-11.0)
--- NOTE | 2020-11-28 11:05 | NUR ---
XRAY AT BEDSIDE AT THIS TIME
[2020-11-28 11:06] LABS: APTT 21.6 Seconds (24.5-32.8); D-DIMER 4.55 ug/mLFEU (0.19-0.50); INR 0.99; PROTIME 10.8 Seconds (10.5-12.1)
[2020-11-28 11:09] LABS: CALCIUM 9.2 mg/dL (8.5-10.1); POTASSIUM 4.4 mmol/L (3.5-5.1)
[2020-11-28 11:14] LABS: ALBUMIN 2.7 g/dL (3.4-5.0); TOTAL BILIRUBIN 0.4 mg/dL (0.2-1.0); TOTAL PROTEIN 7.8 g/dL (6.4-8.2); TROPONIN-I 0.08 ng/mL (<0.06)
[2020-11-28 11:46] LABS: BE(vivo) 2.6 mmol/L (-2 to +3); HCO3 34.8 mmol/L (22.0-26.0); PCO2 106.3 mmHg (35.0-45.0); PO2 146.3 mmHg (80.0-100.0); pH 7.133 (7.360-7.450); sO2 97.9 % (92.0-98.0)
--- NOTE | 2020-11-28 11:50 | NUR ---
IV TEAM AT BEDSIDE TO ESTABLISH ANOTHER LINE FOR CTA
--- NOTE | 2020-11-28 12:15 | NUR ---
SETTING UP FOR INTUBATION AT THIS TIME PER ED PROVIDER
--- NOTE | 2020-11-28 12:20 | NUR ---
STARTING INTUBATION AT THIS TIME ETOMIDATE 20MG @ 1222 SUCC 100MG @ 1223 PT STILL MOVING AND AWAKE AT THIS TIME REPEAT SUCC 100MG @ 1225 SUCCESSFUL INTUBATION @1226 7.5 ET TUBE 22 @ GUM LINE CONFIRMATION WITH AUSCULATION AND CAPNOGRAPHY WILL PLACE DEAN AND OG PT TOLERATED PROCEDURE WELL. OBTAINING SEDATION ORDERS AT THIS TIME
--- NOTE | 2020-11-28 12:35 | EKG ---
[place] [address] [facility] [place] [address] ELECTROCARDIOGRAM REPORT Name: ANA NICHOLE Room #: REG [facility]#: [id number] Admission: 11/28/20 Attend Phys: Discharge: Date of : 51 Report #: [id number] [facility] ED Test Date: 2020-11-28 Test Time: 10:18:13 Pat Name: ANA NICHOLE Department: Room: Gender: F [employer] Boss: CECI : 1955 Requested By: Lars Oh Order Number: [id number] MD: Delroy Hayes Measurements Intervals [place] Rate: 110 P: 49 OK: 152 QRS: -19 QRSD: 86 T: -64 QT: 397 QTc: 538 Interpretive Statements Sinus tachycardia Inferior infarct, age indeterminate Prolonged QT interval Compared to ECG 10/21/2019 15:58:37 Myocardial infarct finding now present Prolonged QT interval now present Sinus rhythm no longer present Left-axis deviation no longer present Electronically Signed On 11-28-2020 12:35:02 CDT by Delroy Hayes [email or web address] <ELECTRONICALLY SIGNED> By: Delroy Hayes MD, [facility] 11/28/20 1235 1018 [id number] Delroy Hayes MD, [facility] /EPI
[2020-11-28 13:41] LABS: BE(vivo) 5.4 mmol/L (-2 to +3); HCO3 34.8 mmol/L (22.0-26.0); PCO2 78.8 mmHg (35.0-45.0); PO2 153.7 mmHg (80.0-100.0); pH 7.263 (7.360-7.450); sO2 98.6 % (92.0-98.0)
[2020-11-28 13:47] LABS: CHOLESTEROL 133 mg/dL (<200); HDL CHOLESTEROL 42 mg/dL (>40); LDL CHOLESTEROL 66 mg/dL (<100); TC:HDL 3.2 Ratio (Not establshd); TRIGLYCERIDE 128 mg/dL (<150); VLDL 26 mg/dL (<40)
--- NOTE | 2020-11-28 14:15 | NUR ---
REPORT GIVEN TO THAIS FITZPATRICK AT THIS TIME. DENIES FURTHER QUESTIONS. PT IS IN CT AT THIS TIME WITH RN AND RT. PT TO GO TO ICU DIRECTLY FROM CT
[2020-11-28 14:27] LABS: FOLIC ACID 57.4 ng/mL (8.6-58.9)
--- NOTE | 2020-11-28 16:03 | NUR ---
PT ARRIVED WITH ED NURSE ANATJOAQUÍN FROM CT. THE ED NURSE INFORMED US THAT THE CT WAS NOT DONE BECAUSE THE VEIN BLEW. UPON INSPECTION OF HER ARM IT WAS NOTICED THAT IT IS RED, SWOLLEN AND WHEEPING FROM WHERE THE CONTRAST WAS INJECXTED AND BLEW THE VEIN. I CONTACTED PHARMACY TO GET THE PROTOCAL FOR EXSTRAVASATION. HERBIE IS CONTACTING DR. DOMINIQUE TO GET THE ORDER AND THE PROTOCOL IS BEING IMPLEMENTED.
--- NOTE | 2020-11-28 16:15 | 2DMMODE ---
[facility] [place] [address] 2 D/M-MODE ECHOCARDIOGRAM Name: ANA NICHOLE Room #: 242-P ADM IN M.R.#: [id number] Admission: 11/28/20 Attend Phys: Basil Angela MD Discharge: Date of : 51 Report #: [id number] THIS REPORT FOR: cc: FAM - Family physician unknown FAM - Family physician unknown Hiren Barcenas MD ~ APPROVED REPORT Study performed: 11/28/2020 15:05:34 EXAM: Comprehensive 2D, Doppler, and color-flow Echocardiogram Patient Location: Bedside Room #: 242 Status: routine BSA: 1.74 HR: 87 bpm BP: 89/52 mmHg Rhythm: NSR Other Information Study Quality: Adequate Indications Diagnosis: Respiratory failure. Hx: SOA, COPD. 2D Dimensions RVDd: 37.48 mm IVSd: 9.06 (7-11mm) LVOT Diam: 20.63 (18-24mm) LVDd: 43.33 mm PWd: 8.99 (7-11mm) Ascending Ao: 35.61 (22-36mm) LVDs: 35.26 (25-40mm) Left Atrium: 25.57 (27-40mm) Aortic Root: 33.07 mm Volumes Left Atrial Volume (Systole) Single Plane 4CH: 68.50 mL Single Plane 2CH: 59.56 mL LA ESV Index: 42.00 mL/m2 Aortic Valve AoV Peak Luke.: 1.03 m/s AO Peak Gr.: 4.25 mmHg LVOT Max P.56 mmHg LVOT Max V: 0.80 m/s [facility] [place] [address] 2 D/M-MODE ECHOCARDIOGRAM Name: ANA NICHOLE Room #: 242-P [facility] IN ..#: [id number] Admission: 11/28/20 Attend Phys: Basil Angela MD Discharge: Date of : 51 Report #: [id number] JOSSELIN Vmax: 2.59 cm2 Mitral Valve E/A Ratio: 0.7 MV Decel. Time: 84.12 ms MV E Max Luke.: 0.64 m/s MV A Luke.: 0.89 m/s MV PHT: 24.40 ms Pulmonary Valve PV Peak Luke.: 0.76 m/s PV Peak Gr.: 2.30 mmHg Tricuspid Valve TR Peak Luke.: 2.14 m/s RAP Estimate: 15.00 mmHg TR Peak Gr.: 18.31 mmHg PA Pressure: 33.00 mmHg Left Ventricle The left ventricle is normal size. There is normal LV segmental wall motion. There is normal left ventricular wall thickness. Left ventricular systolic function is borderline. LVEF 50%. Grade I - abnormal relaxation pattern. Right Ventricle The right ventricle is normal size. The right ventricluar function is borderline hyperkinetic. Moderator band is seen in the right ventricle. Atria Left atrium is dilated. The right atrium size is normal. Aortic Valve The aortic valve is normal in structure. No aortic regurgitation is present. There is no aortic valvular stenosis. Mitral Valve The mitral valve is normal in structure. Mild mitral regurgitation. No evidence of mitral valve stenosis. Tricuspid Valve The tricuspid valve is normal in structure. There is trace tricuspid regurgitation. Estimated PAP 33mmHg. Pulmonic Valve The pulmonary valve is normal in structure. Mild pulmonic regurgitation. [facility] [place] [address] 2 D/M-MODE ECHOCARDIOGRAM Name: ANA NICHOLE Room #: 242-P ADM IN M.R.#: [id number] Admission: 11/28/20 Attend Phys: Basil Angela MD Discharge: Date of : 51 Report #: [id number] Great Vessels The aortic root is normal in size. The ascending aorta is normal in size. The inferior vena cava is dilated with no inspiratory collapse. Pericardium There is no pericardial effusion. <Conclusion> There is normal left ventricular wall thickness. LVEF 50%. The right ventricle is normal size. Moderator band is seen in the right ventricle. Left atrium is dilated. The aortic valve is normal in structure. The mitral valve is normal in structure. Mild mitral regurgitation. The tricuspid valve is normal in structure. There is trace tricuspid regurgitation. Estimated PAP 33mmHg. The pulmonary valve is normal in structure. Mild pulmonic regurgitation. The aortic root is normal in size. There is no pericardial effusion. <ELECTRONICALLY SIGNED> By: Hiren Barcenas MD 11/28/20 1615 [id number] Hiren Barcenas MD /INF
[2020-11-28 17:03] LABS: BE(vivo) 5.8 mmol/L (-2 to +3); HCO3 32.3 mmol/L (22.0-26.0); PCO2 55.9 mmHg (35.0-45.0); PO2 182.8 mmHg (80.0-100.0); pH 7.379 (7.360-7.450); sO2 99.2 % (92.0-98.0)
--- NOTE | 2020-11-28 17:52 | NUR ---
VAT CONSULTED FOR CVAD. PT'S LABS,MEDS,HX,ORDER AND CONSENT VERIFIED. LIJ WAS WIDELY PATENT WITH USG. 6FR TL JACC 25CM INSERTED TO 5CM EXTERNAL. PT TOLERATED WELL. GAUZE APPLIED TO SITE DUE TO BLEEDING. STAT CXR ORDERED
--- NOTE | 2020-11-28 18:21 | NUR ---
CXR CONFIRMED CVAD PLACEMENT, RELEASED FOR IMMEDIATE USE PER PROTOCOL
[2020-11-29] VITALS (32 sets, daily range): BP systolic 89–134; BP diastolic 52–85
[2020-11-29 05:13] LABS: MCH 29.2 pg (26.0-34.0); MCHC 31.9 g/dL (28.0-37.0); MCV 91.6 fL (80.0-100.0); RBC 3.71 mil/uL (4.20-5.00); RDW 15.3 % (10.5-14.5); WBC 7.8 thou/uL (4.0-11.0)
[2020-11-29 05:57] LABS: HEMOGLOBIN 10.8 gm/dL (12.0-15.0)
--- NOTE | 2020-11-29 07:15 | NUR ---
RECEIVED OT EVALUATION ORDER. PATIENT IS INTUBATED AND SEDATED. WILL PLACE ON HOLD AND WILL NEED NEW ORDERS ONCE PATIENT IS ABLE TO PARTICIPATE.
--- NOTE | 2020-11-29 08:59 | NUR ---
ORDERS RECEIVED FOR PT EVAL AND TREAT. Pt ADMITTED FOR HYPERCAPNIC RESP FAILURE AND IS CURRENTLY ON THE VENTILATOR. WILL PLACE ON HOLD AND AWAIT NEW ORDERS WHEN Pt IS MEDICALLY APPROPRIATE FOR PT INTERVENTIONS.
--- NOTE | 2020-11-29 11:23 | NUR ---
ASSUMED CARE 0715.PT BROKE THRU SEDATION,PANICKY,FIO2 HAD TO BE INC'D TO MAINTAIN SATS ~ 92%,FENTANYL GIVEN. FINALLY PT RELAXED, FIO2 BACK DOWN. PT'S & DTR IN ~15 MINUTES, UPDATED ON POC.--VW
--- NOTE | 2020-11-29 14:02 | NUR ---
Case opened to follow for support and dc planning. Pt is currently in the ICU and intubated. Chart reviewed and case discussed with the care team as well as pt's spouse Sukhi. Yard Supervisor spoke with him via phone and cm role introduced. Pt is known to cm from an acute inpt /5N rehab stay last Spring. The pt dc'd to home with noc o2 per [employer] and outpt therapy. Sukhi confirmed the pt lives at home with no steps to enter or inside. She does not utilize any dme other than her noc o2. She is a heavy smoker approx 1pk a day. He sets up her meds daily and manages her f/u appts as she no longer drives. He notes she sees her pcp as well as her psychiatrist regularly. 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 She has a mental health hx of bipolar and depression and has been to our [facility] in the past as well. She is being treated for sepsis/resp failure/copd. Support provided. No hh history. Will follow along and reassess for dc planning needs as the pt progresses.
--- NOTE | 2020-11-29 16:50 | NUR ---
BPCI letter provided in patient records, unable to speak to patient and no family in room, patient admits from home
[2020-11-29 22:04] LABS: BE(vivo) 3.6 mmol/L (-2 to +3); HCO3 28.8 mmol/L (22.0-26.0); PCO2 46.4 mmHg (35.0-45.0); pH 7.411 (7.360-7.450); sO2 92.5 % (92.0-98.0)
[2020-11-30] VITALS (24 sets, daily range): BP systolic 93–128; BP diastolic 45–88
[2020-11-30 05:13] LABS: BE(vivo) -0.9 mmol/L (-2 to +3); PCO2 52.3 mmHg (35.0-45.0); PO2 93.6 mmHg (80.0-100.0); sO2 96.5 % (92.0-98.0)
[2020-11-30 05:14] LABS: pH 7.314 (7.360-7.450)
[2020-11-30 05:25] LABS: ABSOLUTE NEUTROPHILS 6.7 thou/uL (1.4-8.2); BASOPHILS 0.2 % (0.0-2.0); HEMATOCRIT 31.1 % (37.0-47.0); HEMOGLOBIN 9.9 gm/dL (12.0-15.0); LYMPHOCYTES 5.6 % (24.0-44.0); MCH 29.3 pg (26.0-34.0); MCHC 31.9 g/dL (28.0-37.0); MCV 91.7 fL (80.0-100.0); MONOCYTES 4.5 % (1.0-8.0); PLATELET COUNT 239 thou/uL (150-400); POLYS 89.7 % (36.0-66.0); RBC 3.39 mil/uL (4.20-5.00); RDW 15.7 % (10.5-14.5); WBC 7.5 thou/uL (4.0-11.0)
[2020-11-30 06:01] LABS: CALCIUM 7.5 mg/dL (8.5-10.1); CREATININE 0.6 mg/dL (0.6-1.0); POTASSIUM 4.2 mmol/L (3.5-5.1); TOTAL BILIRUBIN 0.3 mg/dL (0.2-1.0); TOTAL PROTEIN 5.8 g/dL (6.4-8.2); TROPONIN-I 0.22 ng/mL (<0.06)
--- NOTE | 2020-11-30 09:26 | NUR ---
If unable to extubate, start enteral nutrition of vital high protein at goal 50ml/hr. (5 cartons per day if bolus administration needed)
--- NOTE | 2020-11-30 10:38 | NUR ---
ASSUMED CARE OF PT AT 0700 DR. GARNETT'S PA WAS AT BEDSIDE AT 0930, NO NEW ORDERS GIVEN, SHE IDICATED SHE THOUGHT IT MIGHT BE A COPD EXACERBATION. DR. URBAN AT BEDSIDE AT 1015 HE WOULD LIKE TO TRIAL HER TO SEE IF SHE'S READY FOR EXTUBATION. RT NOTIFIED
[2020-11-30 12:54] LABS: HCO3 30.1 mmol/L (22.0-26.0); PCO2 46.7 mmHg (35.0-45.0); PO2 66.4 mmHg (80.0-100.0); pH 7.427 (7.360-7.450); sO2 93.5 % (92.0-98.0)
--- NOTE | 2020-11-30 15:18 | EKG ---
[address] [address] ELECTROCARDIOGRAM REPORT Name: ANA NICHOLE Room #: 242-P [facility] IN M.R.#: [id number] Admission: 11/28/20 Attend Phys: Basil Angela MD Discharge: Date of : 51 Report #: [id number] [facility] Test Date: 2020-11-30 Test Time: 09:29:47 Pat Name: ANA NICHOLE Department: Room: 242 P Gender: F Trial Consultant: MARISSA : 1955 Requested By: Basil Angela Order Number: [id number] MD: Delroy Hayes Measurements Intervals Bedias Rate: 72 P: 62 PA: 147 QRS: -23 QRSD: 89 T: -30 QT: 420 QTc: 460 Interpretive Statements Sinus rhythm Borderline left axis deviation Low voltage, extremity and precordial leads Compared to ECG 11/28/2020 10:18:13 Low QRS voltage now present Sinus tachycardia no longer present Myocardial infarct finding no longer present Prolonged QT interval no longer present Electronically Signed On 11-30-2020 15:17:53 CDT by Delroy Hayes [email or web address] <ELECTRONICALLY SIGNED> By: Delroy Hayes MD, [facility] 11/30/20 1517 0929 0929 Delroy Hayes MD, [facility] /EPI
[2020-12-01] VITALS (17 sets, daily range): BP systolic 80–122; BP diastolic 51–71
[2020-12-01 05:19] LABS: HEMATOCRIT 31.9 % (37.0-47.0); HEMOGLOBIN 10.2 gm/dL (12.0-15.0); MCH 29.4 pg (26.0-34.0); MCHC 32.1 g/dL (28.0-37.0); MCV 91.6 fL (80.0-100.0); RBC 3.48 mil/uL (4.20-5.00); RDW 15.5 % (10.5-14.5)
[2020-12-01 05:39] LABS: CALCIUM 7.6 mg/dL (8.5-10.1); CREATININE 0.5 mg/dL (0.6-1.0); POTASSIUM 4.2 mmol/L (3.5-5.1)
--- NOTE | 2020-12-01 10:00 | NUR ---
discussed during am rounds and los, depending on how she does off vent, possible would need 5n acute rehab if accepted.
--- NOTE | 2020-12-01 11:12 | NUR ---
AT 1100, PROPOFOL TURNED OFF AND CPAP TRIAL STARTED.
--- NOTE | 2020-12-01 15:50 | NUR ---
PT AWAKE AND ALERT, FORGETFUL BUT COOPERATIVE W/ CARE. DOING WELL POST-EXTUBATION. ASKING OFTEN FOR LIQUIDS TO DRINK. REINFORCED EDUCATION REGARDING NPO IMMEDIATELY POST-EXTUBATION. ST/OT/PT CONSULTED. REHAB EVAL DONE TODAY. FAMILY IN TO VISIT. PT PROGRESSING TOWARD GOALS ADEQUATELY.
[2020-12-02] VITALS (23 sets, daily range): BP systolic 115–157; BP diastolic 58–84
--- NOTE | 2020-12-02 08:45 | NUR ---
discussed during am rounds, she was extubated yesterday. speech and therapy to eval. daniels consult rt her medication, ortho consult. possible will need 5n acute rehab. cm left message with spouse abhijeet, requested call back. no anticipated dc over the weekend, will cont following as needed for dc needs.
--- NOTE | 2020-12-02 10:19 | NUR ---
Nutrition: Failed ST eval. Plan dobhoff placement. REC Jevity 1.5 to reach goal 45 mL/hr.
--- NOTE | 2020-12-02 12:15 | NUR ---
PSYCH MD AT BEDSIDE INTERVIEWING PT. PT CALM, COOPERATIVE, ANSWERING QUESTIONS.
[2020-12-03] VITALS (19 sets, daily range): BP systolic 113–187; BP diastolic 42–112
[2020-12-03 04:44] LABS: HEMATOCRIT 39.6 % (37.0-47.0); HEMOGLOBIN 12.6 gm/dL (12.0-15.0); MCH 28.7 pg (26.0-34.0); MCHC 31.9 g/dL (28.0-37.0); MCV 90.1 fL (80.0-100.0); RBC 4.39 mil/uL (4.20-5.00); RDW 15.5 % (10.5-14.5); WBC 10.4 thou/uL (4.0-11.0)
[2020-12-03 04:57] LABS: CALCIUM 9.2 mg/dL (8.5-10.1); CREATININE 0.6 mg/dL (0.6-1.0); POTASSIUM 3.6 mmol/L (3.5-5.1)
--- NOTE | 2020-12-03 05:03 | NUR ---
PT RESTING IN NO ACUTE DISTRESS AT THIS TIME.A/OX2-3,CONFUSED BUT OBEYS COMMANDS APPROPRIATELY.VSS,TACHYCARDIAC AT TIME ON MONITOR,CONT ON O2 AT 6LITERS PNC,GILLIS NOTED.PT HAS BEEN HAVING FREQUENT EPISODES OF ANXIETY.MEDS RECONCILLED AND VERIFIED W/THE SPOUSE WHO IS ALSO PT'S CAREGIVER,DR RAMIREZ CONTACTED TO RESUME PT'S PSYCHE MEDS,SEE MAR.PT REPORTS PAIN TO RIGHT ANKLE THAT IS FAIRLY CONTROLLED WITH CURRENT PAIN REGIMEN.BRACE TO RLE.DIANNE DD,OVIDIO UO,TOLEARTING TUBE FEEDINGS,NO N/V.NPO FOR NOW UNTIL ST RE-EVAL.ALL OTHER ASSESSEMENT COMPLETED DOCUMENTED.
--- NOTE | 2020-12-03 17:19 | NUR ---
PATIENT TRANSFERED TO 3W AT THIS TIME. FAMILY AT BEDSIDE. WILL CONT [facility] PLAN OF CARE.
--- NOTE | 2020-12-03 17:34 | NUR ---
PATIENT TRANSFERED FROM ICU AT 1711. A/O X4. C/O RIGHT ANKLE PAIN. RESUMED TF AT 45ML/HR. FAMILY AT BED SIDE. WILL KEEP MONITOR,
[2020-12-04 03:30] VITALS: BP 136/71
--- NOTE | 2020-12-04 04:15 | NUR ---
Patient making slow progress towards outcome goals. Vital signs and rhythm stable. Oxygenation optimal with 4L/NC. Tolerating tube feedings. IVfluids infusing. High fall risks, fall precautions in place. Periods of anxiety with tremors, war room calling for tachycardia rate 180's-they were informed this are artifacts r/t tremors. Call out frequently for pain medication , anxious bordering agitation. PRN Hydrocodone, Olanzapine given with some relief. Extra Trazadone also give. Patient yells out for needs cannot remember to use call light, oriented to person and place. Cannot tell time or date.
[2020-12-04 07:01] VITALS: BP 131/75
[2020-12-04 11:09] VITALS: BP 139/82
[2020-12-04 15:11] VITALS: BP 142/84
--- NOTE | 2020-12-04 17:48 | NUR ---
RN ASSUMED PT'S CARE AT 0700AM, PT IS A&OX2 ( PERSON AND PLACE), PT CAN FOLLOW COMMANDS, BUT PT IS CONFUSED AT TIME, PT IS ON O2 5L/MIN/NC, PT'S VS ARE STABLE, PT IS CONTINUING IV ABX, AND ANXIETY AND PAIN MANAGEMENT, PT IS TOLERATED TUBE FEEDING AT 45ML/HR, PT'S FAMILY STAY AT PT'S BEDSIDE NOW, PT DENIES SOB AT THIS TIME.
[2020-12-04 19:38] VITALS: BP 136/77
[2020-12-05 04:56] VITALS: BP 117/69
--- NOTE | 2020-12-05 05:09 | NUR ---
PT ASKS FOR MEDICATION FOR PAIN ABOUT EVERY SIX HOURS. SHE BECOMES TREMOROUS AND ANXIOUS, WITH A FEARFUL LOOK ON HER FACE. GAVE ZYPREXA FOR THE SYMPTOMS, AND HER VERBAL STATEMENT OF PAIN TO RT FOOT. THIS IS EFFECTIVE FOR HER PAIN CONTROL, SHE IS RELAXED AND ABLE TO REST. CONTINUES ON THE JEVITY PER DOBHOFF AND NPO. MOUTH SWABS FOR MOUTH MOITURE OFFERED. NEEDS MUCH REASSURANCE.
[2020-12-05 07:09] VITALS: BP 117/70
--- NOTE | 2020-12-05 09:51 | NUR ---
Nutrition: Noted IVFs D/C and no water flush order. REC 200 mL H20 q 6 hrs to meet fluid needs.
--- NOTE | 2020-12-05 11:10 | NUR ---
ALAN reviewed chart and spoke with nursing and attending physician. Pt was transferred to from ICU and is progressing towards goals for discharge. Pt has dobhoff in place. Therapy evals ordered. ALAN discussed case with rehabilitation clerk who states they are able to accept pt when medically stable. Discharge to is anticipated for Saturday. Pt currently off the unit having an MRI. ALAN spoke with pt's spouse, Jourdan, via phone to provide update and discuss 's acceptance. Pt's spouse verbalized understanding and is agreeable with discharge plan. ALAN is following to assist as needed with discharge planning.
[2020-12-05 12:32] VITALS: BP 121/72
[2020-12-05 15:44] VITALS: BP 106/68
--- NOTE | 2020-12-05 16:21 | NUR ---
RN ASSUMED PT'S CARE AT 0700AM, PT IS A&OX2 ( PERSON AND PLACE), PT CAN FOLLOW COMMANDS, PT IS ON O2 5L/MIN/NC, PT'S VS ARE STABLE, PT 'S PAIN AND ANXIETY HAVE CONTROLLED,PT HAS PASSED VIDEO SWALLOW STUDY, PT IS TOLEREATED PUREED DIET, PT'S TUBE FEEDING HAS DC AND NG TUBE HAS REMOVED ORDER, PT GETS UP to CHair and pt is relaxing now, pt's family stays with pt now.
[2020-12-05 19:15] VITALS: BP 145/83
[2020-12-06 05:54] VITALS: BP 121/65
[2020-12-06 07:17] VITALS: BP 109/64
--- NOTE | 2020-12-06 08:31 | NUR ---
ASSUMED PT CARE AT SHIFT CHANGE, PT A&OX4. ABLE TO FEED SELF. REQUESTED ANXIETY MEDICATION. TRIPLE LUMEN FLUSHES & DRAWS BLOOD X3. DEAN CLEAR YELLOW URINE. RLE IN BOOT. PULSES 2+.
[2020-12-06 11:28] VITALS: BP 118/59
--- NOTE | 2020-12-06 14:28 | NUR ---
ALAN reviewed chart and spoke with nursing and attending physician. Pt is on 5L of O2. Pt remains on IV abx and IV steroids. Pt may need peg tube placement per physician. ALAN discussed case with rehabilitation clerk. will not have a bed available for pt tomorrow if she has peg tube placed. Discharge to 5N anticipated for later in the week. ALAN is folloiwng to assist as needed with discharge planning.
[2020-12-06 15:20] VITALS: BP 124/96
[2020-12-06 20:20] VITALS: BP 154/91
[2020-12-07 04:15] VITALS: BP 103/57
--- NOTE | 2020-12-07 04:38 | NUR ---
Pt. requested to get up to commode , already incontinent by the time she got up and had another large bm. Sleep med given per her request with good result. She slept well most of the night. called last night to get an update. Denies any pain. She has been afebrile. Right CAM boot on. Maintaining O2 sat in the upper 90's on 5L while awake then low 90's while asleep. SR-ST with occasional PVC's per tele. Bed alarm on for safety. Making some progress towards care plan goals.
[2020-12-07 07:55] VITALS: BP 111/67
[2020-12-07 11:11] VITALS: BP 113/63
--- NOTE | 2020-12-07 12:12 | NUR ---
Case discussed with the care team. Possible PEG placement tomorrow and then dc to 5N acute rehab if stable. Pt and spouse aware of the plan and agreeable. Will follow.
[2020-12-07 15:22] VITALS: BP 127/75
--- NOTE | 2020-12-07 19:05 | NUR ---
RN ASSUMED PT'S CARE AT 0700AM, PT IS A&OX3, PT IS ON O2 5L/MIN/NC, PT IS CONTIUNING IV ABX AND ANXIETY MANAGEMENT, PT IS TOLERATED PUREED DIET AND HONEY THICKEN FLUID,PT'S PEG TUBE PLACEMENT IS ON HOLD.
[2020-12-07 19:28] VITALS: BP 135/71
--- NOTE | 2020-12-08 03:07 | NUR ---
Up in the chair till 2144. Assisted back to bed ,ambulated with walker from chair to bed. She requested sleep med at then requested for another dose later. Denies any pain. She slept fair the rest of the night. O2 at 5L , no respiratory distress. Bed alarm on for safety. Afebrile. Making some progress towards care plan goals.
[2020-12-08 04:20] VITALS: BP 124/58
[2020-12-08 04:46] LABS: HEMATOCRIT 33.9 % (37.0-47.0); HEMOGLOBIN 10.9 gm/dL (12.0-15.0); MCH 28.9 pg (26.0-34.0); MCHC 32.1 g/dL (28.0-37.0); RBC 3.77 mil/uL (4.20-5.00); RDW 15.9 % (10.5-14.5); WBC 5.1 thou/uL (4.0-11.0)
[2020-12-08 05:06] LABS: ALBUMIN 2.2 g/dL (3.4-5.0); CALCIUM 8.6 mg/dL (8.5-10.1); CREATININE 0.7 mg/dL (0.6-1.0); POTASSIUM 3.9 mmol/L (3.5-5.1); TOTAL BILIRUBIN 0.4 mg/dL (0.2-1.0); TOTAL PROTEIN 5.5 g/dL (6.4-8.2)
[2020-12-08 07:11] VITALS: BP 119/86
[2020-12-08] MEDS ORDERED: CEFUROXIME500 MG PO (08:10)
[2020-12-08] MEDS ORDERED: ENOXAPARIN40 MG/0.1 SUBQ (08:10)
[2020-12-08] MEDS ORDERED: PRIMIDONE50 MG PO (08:11)
[2020-12-08] MEDS ORDERED: PEPCID20 MG PO (08:11)
[2020-12-08] MEDS ORDERED: MIRALAX17 GM PER TUBE (08:12)
[2020-12-08 11:03] VITALS: BP 100/58
--- NOTE | 2020-12-08 13:24 | NUR ---
DISCHARGE NOTE: ALAN reviewed chart and spoke with nursing and attending physician. Pt is medically stable to discharge to 5N today. No plan for peg tube placement at this time. ALAN met with pt and her at bedside to discuss discharge ot 5N. Pt will be in room 503 on rehab. Pt and spouse are familiar with 5N. Both agreeable with plan. Pt to be moved to 5N later this afternoon. Rehab CM to follow and assist as needed with discharge planning.
== END 2020-12-08 14:00 | DRG 871 ==
LOC: ER 10:11 → EROBS 13:00 → ICU 13:00 → 3W 12-03 17:06
PROVIDERS: Emergency Medicine; Nurse Practitioner; Pediatrics; ADMIT Hospitalist; ATTEND Hospitalist
DX: A41.9 Sepsis, unspecified organism (principal); J96.02 Acute respiratory failure with hypercapnia; J96.01 Acute respiratory failure with hypoxia; J69.0 Pneumonitis due to inhalation of food and vomit; G93.41 Metabolic encephalopathy; J44.1 Chronic obstructive pulmonary disease with (acute) exacerbation; E46 Unspecified protein-calorie malnutrition; I47.1 Supraventricular tachycardia; J44.0 Chronic obstructive pulmonary disease with (acute) lower respiratory infection; E87.0 Hyperosmolality and hypernatremia; J98.11 Atelectasis; F11.20 Opioid dependence, uncomplicated; G93.1 Anoxic brain damage, not elsewhere classified; F32.9 Major depressive disorder, single episode, unspecified; G43.909 Migraine, unspecified, not intractable, without status migrainosus; E78.5 Hyperlipidemia, unspecified; F17.210 Nicotine dependence, cigarettes, uncomplicated; K74.60 Unspecified cirrhosis of liver; D64.9 Anemia, unspecified; F41.1 Generalized anxiety disorder; R13.10 Dysphagia, unspecified; G25.0 Essential tremor; E86.1 Hypovolemia; M47.896 Other spondylosis, lumbar region; M51.37 Other intervertebral disc degeneration, lumbosacral region; G89.29 Other chronic pain; Z20.822 Contact with and (suspected) exposure to COVID-19; S82.831A Other fracture of upper and lower end of right fibula, initial encounter for closed fracture; Z71.6 Tobacco abuse counseling; Z87.828 Personal history of other (healed) physical injury and trauma; Z90.49 Acquired absence of other specified parts of digestive tract; Z88.0 Allergy status to penicillin; Z88.8 Allergy status to other drugs, medicaments and biological substances; Z68.22 Body mass index [BMI] 22.0-22.9, adult; R53.81 Other malaise; X58.XXXA Exposure to other specified factors, initial encounter; Y93.89 Activity, other specified; Y92.89 Other specified places as the place of occurrence of the external cause; Y99.8 Other external cause status
CPT/HCPCS: 10078; 10779; 10879

== ENCOUNTER 2020-12-07 09:34 | Inpatient (IN) | payer OTHER ==
[~2020-12-07] VITALS: Ht 170.2 cm; Wt 62.6 kg
[2020-12-08] MEDS ORDERED: ENOXAPARIN40 MG/0.1 SUBQ (08:10)
[2020-12-08] MEDS ORDERED: CEFUROXIME500 MG PO (08:10)
[2020-12-08] MEDS ORDERED: PEPCID20 MG PO (08:11)
[2020-12-08] MEDS ORDERED: PRIMIDONE50 MG PO (08:11)
[2020-12-08] MEDS ORDERED: MIRALAX17 GM PER TUBE (08:12)
[2020-12-08 14:39] VITALS: BP 111/60
--- NOTE | 2020-12-08 15:17 | NUR ---
ORDER ON CAM BOOT HAS BEEN CLARIFIED THROUGH AYSE (ASTON) FROM DR. UNGER OFFICE. SHE REPORTED THAT IT IS FINE TO REMOVE CAM BOOT AT NIGHT AND WHILE RESTING IN BED. SHE MAY ALSO HAVE THE CAM BOOT OFF IF SHE IS DRESSING AND NOT BEARING ANY WEIGHT ON THE RLE. SHE MUST HAVE THE CAM BOOT WHEN SHE TRIES TO BEAR WEIGHT ON RLE.
[2020-12-08 19:14] VITALS: BP 133/72
--- NOTE | 2020-12-08 21:25 | NUR ---
PATIENT ARRIVED ON FLOOR AROUND 1545, A&0 TO PERSON, PLACE AND SITUATION, EXHIBITED SOME CONFUSION ON TIME. SPOUSE WAS PRESENT DURING ADMISSION PROCESS AND HELPED ANSWERING SOME OF THE QUESTION. PATIENT TRASFERED WITH GAITBELT AND WALKER WITH CONTACT GUARD ASSIST, PATIENT VOIDED INTO TOILET TWICE DURING ADMISSION PROCESS. AMBULATION WITH CAM BOOT IN PLACE ON RLE, WEIGHT BEARING TOLERATED. AMBULATING WITH WALKER AND GAITBELT WITH ASSIT OF ONE. PATIENT'S SPOUSE AND SON BOTH PULLED NURSE ASIDE TO REPORT THAT PATIENT HAS HAD A HISTORY OF DRUG ABUSE (OXYCODONE). BOTH WERE REASSURED BY NURSE THAT MEDICATION MANAGEMENT WHILE IN REHAB WILL BE DONE BUT HEALTHCARE STAFF ONLY. PATIENT RECEIVED PAIN MEDICATION BEFORE ARRIVING TO FLOOR, AND RATED HER PAIN AT 6/10 AT TIME OF ASSESSMENT. CONTINUES ON 3L OF O2 VIA NC, O2Sat REMAINS ABOVE 95%. NO COCNCERNS AT THIS TIME, WILL CONTINUE TO MONITOR.
--- NOTE | 2020-12-08 22:09 | NUR ---
ASSUMED CARE OF PT AT 1920. PT IS A&OX3. IS STABLE. IS ON 3L OF O2/NC. DENIES PAIN IN R ANKLE. CAM BOOT IN PLACE. PT REFUSED TO TAKE BOOT OFF IN BED. PT REQUESTED PILLOW BETWEEN LEGS. PILLOW APPLIED. IS UP WITH 1 ASSIST, GB, WALKER. FALL PRECAUTIONS & HOURLY ROUNDING CONTINUED THIS SHIFT. SLEEP AID ADMINISTERED. PT IS CURRENTLY ASLEEP. CALL LIGHT WITHIN REACH. LABS & VITALS REVIEWED. WILL CONTINUE TO MONITOR.
[2020-12-09 05:40] LABS: HEMATOCRIT 34.4 % (37.0-47.0); MCH 28.5 pg (26.0-34.0); MCV 89.3 fL (80.0-100.0); RBC 3.85 mil/uL (4.20-5.00); RDW 15.4 % (10.5-14.5); WBC 5.5 thou/uL (4.0-11.0)
[2020-12-09 06:03] LABS: CALCIUM 8.6 mg/dL (8.5-10.1); CREATININE 0.6 mg/dL (0.6-1.0); POTASSIUM 3.8 mmol/L (3.5-5.1)
[2020-12-09 07:33] VITALS: BP 152/83
--- NOTE | 2020-12-09 13:55 | NUR ---
chart review. new to acute rehab yesterday afternoon. she lives home with her spouse. no steps. spouse sets up her medication at home. no longer drives. hx of ethol/drug abuse, and mental health dx. has been to 5n acute rehab in past and also [facility] stay. will cont following as needed for dc needs.
[2020-12-09 20:00] VITALS: BP 127/71
--- NOTE | 2020-12-10 04:27 | NUR ---
pt sitting up in recliner at change of shift awake and with somewhat flat affect. pt took hs meds crushed with honey thick liquid tolerating well. pt appears to be sleeping soundly. bed alarm on and call light in reach. will continue to monitor.
[2020-12-10 07:03] VITALS: BP 98/57
--- NOTE | 2020-12-10 10:32 | NUR ---
ASSUMED CARE AT 0700. PATIENT IS ALERT AND ORIENTED X3. PATIENT GUARDADO'S, CLIMBING GUIDE ARE EQUAL. LUNGS ARE CLEAR AND DEMINISHED. ABD IS SOFT WITH BSX4. PATIENT IS INCONTINENT OF URINE. CONTINUES ON PO ABTS WITHOUT ADVERSE AFFECTS. PATIENT IS UP IN THE CHAIR FOR MEALS. PATIENT HAS CAMWALKER BOOT ON HER RIGHT FT AND LEG. PATIENT IS WBAT. FALL AND SAFETY PROTOCOLS IN PLACE. C/O PAIN IN HER RIGHT ANKLE. MEDICATED WITH PRN PAIN MED. CONTINUES TO PROGRESS SLOWLY TOWARDS D/C GOALS. WILL CONTINUE TO MONITER.
[2020-12-10 19:54] VITALS: BP 143/76
[2020-12-11 07:30] VITALS: BP 141/73
[2020-12-11 19:14] VITALS: BP 119/66
--- NOTE | 2020-12-11 19:47 | NUR ---
ASSUMED CARE AT 0700. PATIENT IS ALERT AND ORIENTED TO SELF AND SITUATION. PRESENTS WITH FLAT AFFECT. REPORTED R RUDI PAIN AT 8/10, PAIN MANAGED WITH PRN HYDROCODONE. BS PRESENT AND ACTIVE. LS AND DIMINISHED, AND CONT. ON 1L OF O2 VIA NC. CONTINUES TO BE WEIGHT BEARING TOLERATED, WHILE IN CAM BOOT, ON RLE. TAKES MEDICATION CRUSHED IN APLE SAUCE, TOLERATED WELL. NO CONCERNS AT THIS TIME, WILL CONTINUE TO MONITOR.
--- NOTE | 2020-12-11 23:17 | NUR ---
ASSUMED CARE OF PT AT 1915. PT IS A&OX3. IS ON 1L OF O2/NC. REPORTS PAIN IN RIGHT FOOT THAT IS BEING MANAGED WITH ORAL PAIN MEDS & OTHER THERAPUETIC TECHNIQUES. CAMBOOT IS IN PLACE WHEN UP. IS UP WITH 1 ASSIST, GB, WALKER. FALL PRECAUTIONS & HOURLY ROUNDING CONTINUED THIS SHIFT. LABS & VITALS REVIEWED. PT IS ABLE TO TURN SELF IN BED. IS CURRENTLY ASLEEP. CALL LIGHT WITHIN REACH. WILL CONTINUE TO MONITOR.
[2020-12-12 07:15] VITALS: BP 102/57
[2020-12-12 20:00] VITALS: BP 144/87
--- NOTE | 2020-12-12 20:41 | NUR ---
ASSUMED CARE AT 0700. ALERT AND ORIENTED TO SELF, SITUATION AND PLACE. ON 1L OF 02 VIA NC.CAM BOOT IN PLACE ON RLE WHEN BEARING WEIGHT TOLERATED. ASSIT OF 1 WITH BG, AND WALKER FOR TRANSFERS. REPORTED PAIN IN RLE, PAIN MANAGED WITH PRN NORCO, AND LOWER EXTREMITY ELEVATION. LS ARE DIMINISHED, BS PRESNET AND ACTIVE, ABD ROUND AND SOFT. NO COCERNS AT THIS TIME, WILL CONTINUE TO MONITOR.
--- NOTE | 2020-12-13 04:50 | NUR ---
ASSESSMENT: PT REMAIN ALERT AND ORIENT TIMES 2-3. FORGETFUL TO SITUATION AND TIME. PRN PAIN MEDS GIVEN FOR PAIN IN RIGHT ANKLE. VSS, AFEBRILE. SLOW PROGRESS TOWARDS DC GOALS. WILL CONTINUE TO MONITOR.
[2020-12-13 05:55] LABS: ABSOLUTE NEUTROPHILS 2.2 thou/uL (1.4-8.2); BASOPHILS 1.3 % (0.0-2.0); EOSINOPHILS 2.5 % (0.0-3.0); HEMOGLOBIN 11.5 gm/dL (12.0-15.0); LYMPHOCYTES 34.1 % (24.0-44.0); MCH 28.8 pg (26.0-34.0); MCHC 32.1 g/dL (28.0-37.0); MCV 89.8 fL (80.0-100.0); MONOCYTES 8.9 % (1.0-8.0); PLATELET COUNT 213 thou/uL (150-400); POLYS 53.2 % (36.0-66.0); WBC 4.2 thou/uL (4.0-11.0)
[2020-12-13 05:58] LABS: CALCIUM 8.7 mg/dL (8.5-10.1); CREATININE 0.7 mg/dL (0.6-1.0); POTASSIUM 4.3 mmol/L (3.5-5.1)
[2020-12-13 07:15] VITALS: BP 106/65
--- NOTE | 2020-12-13 08:57 | NUR ---
PT SITTING UP IN CHAIR. PT WORKING WITH THERAPY. PT PUTTING ON HER CAM BOOT ON RT FOOT. PT STATED PAIN TO RT FOOT IS 6 ON 1-10 SCALE. PT ON ROOM AIR AT THIS TIME. PT LUNGS CLEAR. PT ON HONEY THICKEN LIQUIDS AND TOLERATING WELL. TOOK OFF NICOTINE PATCH TO RT ARM. PT STATED SHE STILL HAS AN URGE TO SMOKE.
--- NOTE | 2020-12-13 08:58 | NUR ---
ADM HYDROCODONE 5MG PO FOR PAIN TO RT LOWER EXT OF 6 ON 1-10 SCALE.
--- NOTE | 2020-12-13 09:03 | NUR ---
PT SITTING UP IN THE CHAIR. PT WORKING WITH ST. PT LUNGS CLEAR. PT TOLERATING DIET THICKENED. PT TAKES MEDS WHOLE IN APPLESAUCE. PT ON ROOM AIR. PT COMPLAINED OF PAIN TO RT ANKLE OF 6 ON 1-10 ADM HYDROCODONE 5MG PO FOR PAIN. PT WANTING TO HAVE A MUSCLE RELAXER, DIDN'T SEE ON ORDERED WILL ASK
--- NOTE | 2020-12-13 13:30 | NUR ---
team meeting, has cam boot. diet puree with honey thick liquid. vital stim. has home o2 at hs. dc [facility] ( pt, ot, st with vital stim, nurse). fww. [facility] list hh choice provided. will cont following as needed for dc needs.
--- NOTE | 2020-12-13 17:58 | NUR ---
SON CAME UP CONCERNED ABOUT PT TREMORS, HE STATED SHE HAS HAD BEFORE AND DIDN'T KNOW IF A CERTAIN MED WAS WITHDRAWN OR ADDED. DIDN'T SEE ANY MEDS UNLESS IT WAS PAIN MEDICATION. OFFERED PT A PAIN PILL, SHE STATED SHE WOULD LIKE ONE FOR BEDTIME.
[2020-12-13 19:34] VITALS: BP 166/82
--- NOTE | 2020-12-14 00:09 | NUR ---
PT ALERT AND ORIENTED X 4, FLAT AFFECT. UP IN RECLINER ALL EVENING. TRANSFERRED TO BED AT HS WITH ASSIST X 1. PT TOOK HS MEDS CRUSHED IN APPLESAUCE WITHOUT DIFFICULTY. PT C/O PAIN IN HER RIGHT ANKLE. HYDROCODONE GIVEN AT HS AND PT SLEEPING UPON REASSESSMENT. TREMORS NOTED. BED ALARM ON FOR SAFETY. PT APPEARS TO BE SLEEPING ON HOURLY ROUNDS.
[2020-12-14 07:30] VITALS: BP 162/71
--- NOTE | 2020-12-14 08:43 | NUR ---
PT SITTING UP ON SIDE OF BED DRINKING COFFEE THAT IS HONEY THICK. PT TOOK MEDS CRUSHED IN APPLESAUCE AND ABLE TO TAKE NON-CRUSHED MEDS IN APPLE SAUCE. PT HAS STRESS INCON. AND HAS BRIEF ON. PT HAS OXYGEN ON 1L NC. PT HAS SLIGHT TREMORS THIS AM, PT STATED SHE GETS AT HOME TOO. PT REFUSED TO HAVE ANY PAIN MEDS AT THIS TIME. PT TOLERATING HONEY THICK LIQUIDS WITHOUT COUGH. PT HAD LAST BM 12/12/20.
--- NOTE | 2020-12-14 12:39 | NUR ---
cm visited with spouse abhijeet via phone call, passed on information from team meeting. he agree with dcp, discussed [facility] hh list choice and [facility]/abhijeet. will cont following as needed for dc needs. referrals sent. spouse for training with therapy on at 9am.
[2020-12-14 19:14] VITALS: BP 131/76
--- NOTE | 2020-12-15 02:07 | NUR ---
PT CARE ASSUMED WITH PT IN CHAIR WITH FAMILY MEMBER AT BEDSIDE..PT IS A/O X4.PT IS UO WITH X1 ASSIST WITH WALKER AND GAIT BELT.PT TAKE MEDS CRUSHED IN APPLE SAUCE.PT IS ON PUREED DIET WITH HONEY THICKEN LIQUID.PT HAS BOOT ON RT FOOT FOR RT ANKLE FRACTURE.PT IS ON 1L OF O2 VIA NC.WILL CONTINUE TO MONITOR
[2020-12-15 07:30] VITALS: BP 128/58
[2020-12-15 19:03] VITALS: BP 152/86
--- NOTE | 2020-12-15 19:53 | NUR ---
ASSUMED CARE OF PT AT 1900. PT IS A&OX3. IS ON ROOM AIR. IS STABLE. DENIES PAIN IN RIGHT FOOT. EVENUP BOOT IN PLACE. IS UP WITH CONTACT GUARD ASSIST, GB, WALKER. FALL PRECAUTIONS & HOURLY ROUNDING CONTINUED THIS SHIFT. LABS & VITALS REVIEWED. PT IS UP IN RECLINER, WATCHING TV. CALL LIGHT WITHIN REACH. WILL CONTINUE TO MONITOR. IS ABLE TO TURN SELF IN BED.
--- NOTE | 2020-12-15 20:00 | NUR ---
ASSUMED CARE AT 0700. A&O TO SELF, SITUATION AND PLACE. PT 02Sat 92% ON ROOM AIR IN AM, AND 94% WHEN RANDOMLY CHECKE IN THE AFTERNOON. PATIENT IS TOLERATING BEING ON ROOM AIR DURIGN THE DAY, NOW ONLY ON O2 AT HS, LIKE AT HOME. DENIES PAIN. ASSIST OF 1 W/ WALKER AND GAIT BELT WITH TRANSFERS AND ABMBULATION. CONTINUES TO BEAR WEAR TOLERATED ON RLE, W/ CAM BOOT ON WHEN BEARING WEIGHT. EVEN-UP HAS BEEN PLACED ON LEFT SHOE, AND PT REPORTS WALKING BETTER WITH IT ON. NO CONCERNS AT THIS TIME, WILL CONTINUE TO MONITOR.
[2020-12-16 08:20] VITALS: BP 148/79
--- NOTE | 2020-12-16 14:59 | NUR ---
ASSUMED CARE OF PATIENT AT SHIFT CHANGE. ASSESSMENT CHARTED. MEDICATIONS ADMINISTERED PER MAR; CRUSHED IN APPLESAUCE. PATIENT IS ALERT TO SELF, PLACE, TIME BUT CAN BE CONFUSED/FORGETFUL AT TIMES. PATIENT WORKED WITH THERAPIES THIS SHIFT AND DID WELL. STILL GETTING UP SBA WITH A WALKER/GB & EVENUP SHOE LIFT (RT. ANKLE) AND BOOT. PATIENT VOICED MILDER PAIN THIS SHIFT RELIEVED BY MEDICATION. IN CHAIR MAJORITY OF SHIFT W BLE ELEVATED. PATIENT VOICED NO FURTHER ISSUES OR NEEDS. FALL PRECAUTIONS REMAIN IN PLACE. WILL CONTINUE TO MONITOR AND FOLLOW PLAN OF CARE.
[2020-12-16 19:15] VITALS: BP 173/97
--- NOTE | 2020-12-17 04:42 | NUR ---
assumed care approx 1900 evening 12/16. pt sitting up in recliner at change of shift watching tv. pt with flat affect. pt up to bathroom with 1 assist. pt took hs meds with applesauce crushed tolerating well. pt appears to be sleeping soundly. bed alarm on and call light in reach. will continue to monitor.
[2020-12-17 08:00] VITALS: BP 104/59
--- NOTE | 2020-12-17 10:47 | NUR ---
ASSUMED CARE OF PT AT 0700 THIS MORNING. PT WAS SLEEPING WHILE TAKING REPORT. PT IS A/OX4 WHEN AWAKE. SKIN W/D/ATR, INTACT WITH NO TENTING. LUNGS ARE CLEAR ALL CUEVA. CR<3SECX4, DISTAL PULSES PRESENT AND STRONG. ABD SOFT NONTENDER, ACTIVE BOWEL SOUNDS. BOOT CAM ON LEFT FOOT AND CAM SHOE ON RIGHT FOOT TO COMPENSATE FOR HEIGHT OF THE BOOT. ASSESSMENTS ARE OTHERWISE UNREMARKABLE. CALL LIGHT AND OTHER NEEDS ARE PLACED WITHIN REACH. MEDS AND TX GIVEN SCHEDULED.
[2020-12-17 19:07] VITALS: BP 145/78
--- NOTE | 2020-12-18 01:23 | NUR ---
assumed care approx 1900 evening 12/17. pt sitting in recliner at change of shift with family at bedside. pt appropriate and cooperative with flat affect. pt stayed up until approx 2200. pt took hs meds crushed with applesauce tolerating well. pt up to bathroom to void before falling asleep. pt appears to be sleeping soundly. bed alarm on and call light in reach. will continue monitor.
[2020-12-18 08:00] VITALS: BP 146/61
--- NOTE | 2020-12-18 14:47 | NUR ---
ASSUMED CARE OF PATIENT AT SHIFT CHANGE. ASSESSMENT CHARTED. MEDICATIONS ADMINISTERED PER EMAR; CRUSHED IN YOGURT FOR MORNING PILLS, AND THEN WHOLE IN YOGURT FOR REMAINDER PILLS PER SPEECH. PATIENT WAS SUPERVISED DURING PO INTAKE AND TOLERATED WHOLE PILLS IN PUREED FOOD WELL WITH NO ISSUES. PATIENT DRESSES AND AMBULATES WITH NO ISSUES; MINIMAL ASSIST. DENIES PAIN. CAM BOOT ON R FOOT; APPLIED BY PATIENT. R EVENFLOW APPLIED BY PATIENT. FREQUENT CHECKS DONE BY STAFF. PATIENT VOICES NO FURTHER NEEDS. WILL CONTINUE TO MONITOR AND FOLLOW PLAN OF CARE
[2020-12-18 19:40] VITALS: BP 163/96
--- NOTE | 2020-12-19 00:47 | NUR ---
PT AOX4, RESPONDING TO ORIENTATION PROMPTS APPROPRIATELY. PT WITH INTERMITTENT FORGETFULLNESS. PT DENIES PAIN AND SOB WHILE ON ROOM AIR. PT TOLERATING PO INTAKE OF FLUIDS AND REGULAR DIET WITHOUT ISSUE. PT WITHOUT NAUSEA OR EMESIS. PT AMBULATING WITH X1 ASSIST WALKER AND GAIT BELT, VOIDING IN BATHROOM. PT MAINTAINS BRACE TO RLE AND EVEN UP TO LLE. SENSATION INTACT, TREMORS NOTED TO BUE AND HEAD, CAPILLARY REFILL LESS THAN 3SEC, PERIPHERAL PULSES PALPABLE IN ALL EXTREMITIES. PT RESTING IN BED THROUGHOUT SHIFT, FREQUENT REPOSITIONING ENCOURAGED WHILE IN BED, PT NOTED TO SHIFT INDEPENDENTLY. PT ENCOURAGED TO NOTIFY STAFF FOR ALL NEEDS, CALL LIGHT WITHIN REACH, BED ALARM ON, BED LOCKED IN LOWEST POSITION, FREQUENT MONITORING WILL CONTINUE.
[2020-12-19 07:15] VITALS: BP 105/62
--- NOTE | 2020-12-19 11:50 | NUR ---
ASSUMED PT CARE THIS AM. PATIENT IS A&OX4. REMAINS CONTINENT AND CALLS APPROPRIATELY WHEN NEEDED. PATIENT REPORTED PAIN IN HER ANKLE OF A 2, RESPONDED WELL TO PAIN MEDICATION GIVEN. PATIENT IS ON ROOM AIR. TOOK MORNING MEDICATIONS WITHOUT ISSUE. PATIENT REPORTING NO NUMBNESS, TINGLING, OR WEAKNESS. FALL PRECAUTIONS ARE IN PLACE, CALL LIGHT WITHIN REACH.
[2020-12-19 14:51] VITALS: BP 105/62
[2020-12-19 19:25] VITALS: BP 134/82
--- NOTE | 2020-12-20 01:21 | NUR ---
PT ASSESSMENT COMPLETED AND VSS. MEDS GIVEN ORDERED AND WELL TOLERATED. BOOT ON FOOT EARLY DURING SHIFT. PT DENIES NEEDS. SLEEPING MEDICATION WORKING WELL. WILL CONTINUE TO MONITOR FREQUENTLY.
[2020-12-20 07:15] VITALS: BP 147/75
[2020-12-20] MEDS ORDERED: IPRAT-ALBUT 0.5-3 ML INH (11:06)
[2020-12-20] MEDS ORDERED: VENTOLIN HFA 1818 GM INH (11:06)
[2020-12-20] MEDS ORDERED: PULMICORT0.5 MG/22 INH (11:06)
[2020-12-20] MEDS ORDERED: PRIMIDONE50 MG PO (11:06)
[2020-12-20] MEDS ORDERED: NEBULIZER MISCELL (11:06)
--- NOTE | 2020-12-20 11:20 | NUR ---
ASSUMED PT CARE AROUND 0700. PATIENT ALERT X ORIENTED X 4, FORGETFUL.ON ROOM AIR. ASSIST WITH WALKER AND GAIT BELT TO GO TO BATHROOM. HAD A BM TODAY. TOOK PILLS WHOLE WITH APPLE SAUCE TODAY MORNING.BOOT ON RT FOOT. DC TO DAY, TALKE TO PT' S . HE SAID HE WILL COME AROUND NOON[place] TO PICK HER. FALL PRECAUTION IN PLACE. WILLCONTINUE TO MONITOR.
[2020-12-20] MEDS ORDERED: ASA81BEC PO (11:32)
[2020-12-20 12:01] VITALS: BP 105/62
--- NOTE | 2020-12-20 12:51 | NUR ---
team meeting, cont with dc today, fww from [facility], [facility], [facility].
--- NOTE | 2020-12-21 15:36 | H ---
[facility] [place] [address] HISTORY AND PHYSICAL Name: ANA NICHOLE Room #: 503-P [facility] IN M.R.#: [id number] Admission: 12/08/20 Attend Phys: Lars Whitlock MD Discharge: 12/20/20 Date of : 51 Report #: [id number] THIS REPORT FOR: cc: FAM - Family physician unknown FAM - Family physician unknown Lars Whitlock MD ~ DOC #: [id number] Lars Whitlock MD DATE OF SERVICE: 12/08/2020 HISTORY AND PHYSICAL ADDENDUM HISTORY OF PRESENT ILLNESS: Please see the full documentation as noted. The patient was originally admitted with shortness of breath to [facility] on 11/28/2020. She was intubated, diagnosed with acute respiratory failure, pneumonia, acute exacerbation of COPD. She had a fall prior to admission with x-rays revealing fibular fracture. Ortho was consulted and a Cam boot was recommended, weightbearing as tolerated on the right lower extremity. GI had been consulted for possible PEG, but that was on hold. She was noted to have significant cognitive deficits with toxic metabolic encephalopathy. She was felt to be ready for admission for acute in-hospital inpatient rehabilitation. PRIOR MEDICAL HISTORY, ALLERGIES, HABITS, SOCIAL HISTORY: Please see the history and physical documentation. MEDICATIONS: Per the MAR. REVIEW OF SYSTEMS: 14-point review of systems is as noted. The patient did not offer any current chest pain, shortness of breath, or abdominal discomfort. PHYSICAL EXAMINATION: GENERAL: She was pleasant and alert, but there is definite latency to her responses. She has decreased short-term memory. She is on nasal cannula O2. HEENT: Appeared to be benign. CHEST: Clear to auscultation with some decreased breath sounds overall. HEART: Regular rate and rhythm. ABDOMEN: Bowel sounds positive, nontender. GENITOURINARY AND Rectal: Deferred. NEUROMUSCULOSKELETAL: She has a right Cam boot in place. She can wiggle her toes. Functionally, she is transferring stand pivot with gait up to 45 feet. In occupational therapy, lower body dressing is min assist, upper body dressing is standby assistance. Speech therapy reveals moderate cognitive deficits with moderate memory deficits. She is on a pureed diet with honey-thickened liquids with some significant dysphagia. [address] [address] HISTORY AND PHYSICAL Name: ANA NICHOLE Room #: 503-P [facility] IN M.R.#: [id number] Admission: 12/08/20 Attend Phys: Lars Whitlock MD Discharge: 12/20/20 Date of : 51 Report #: [id number] ASSESSMENT: 1. Metabolic/hypoxic encephalopathy. 2. Medical complexity with generalized debilitation. 3. Aspiration pneumonia, chronic obstructive pulmonary disease acute exacerbation, acute respiratory failure, status post extubation 11/28/2020 to 12/01/2020. 4. Right ankle fracture, weightbearing as tolerated with Cam boot. 5. Dysphagia. 6. L5-S1 annular tear. 7. Diffuse lumbar spondylosis. 8. Tobacco abuse. 9. Bipolar disorder with depression and anxiety. 10. Liver cirrhosis with history of severe esophagitis. 11. History of ETOH abuse. PLAN: The patient is admitted for acute in-hospital inpatient rehabilitation. Please see the full admission note documentation. Goal is to maximize her functional independence, so she can hopefully return back to the home setting with her . ADDENDUM: The overall plan of care is based on the pre-admit screen and information garnered from therapy assessments. 1. Estimated length of stay is probably 10 days to possibly 14 days. 2. Medical prognosis is reasonably good. 3. Anticipated interventions include the interdisciplinary acute inpatient rehabilitation program. 4. Anticipated functional outcomes would be for the patient to become modified independent with transfers, mobility, ADLs and to improve as far as cognition, so that she can return back to the home setting, also to improve as far as swallowing as she has significant dysphagia. 5. Discharge destination would be back to the home setting with her . 6. Expected therapy by discipline includes PT, OT and Speech 1 hour per day each 5 days a week throughout the duration of the acute inpatient rehabilitation stay. The patient's prognosis for significant practical improvement within a reasonable period of time appears good. Given the patient's complex medical condition and risk of further medical complication, rehabilitation services could not be safely provided at the lower level of care such as a fpc facility. Lars Whitlock MD [address] [address] HISTORY AND PHYSICAL Name: DIONISIOANA NORMAN Room #: 503-P [facility] IN M.R.#: [id number] Admission: 12/08/20 Attend Phys: Lars Whitlock MD Discharge: 12/20/20 Date of : 51 Report #: [id number] <ELECTRONICALLY SIGNED> By: Lars Whitlock MD 12/21/20 1536 [id number] 1527 Lars Whitlock MD /nt
--- NOTE | 2020-12-22 13:05 | HC ---
[facility] [place] [address] CONSULTATION Name: ANA NICHOLE Room #: 503-P [facility] IN M.R.#: [id number] Admission: 12/08/20 Attend Phys: Lars Whitlock MD Discharge: 12/20/20 Date of : 51 Report #: [id number] THIS REPORT FOR: cc: FAM - Family physician unknown FAM - Family physician unknown Richy Smith PhD ~ DOC #: [id number] Richy Smith, PhD DATE OF SERVICE: 12/18/2020 NEUROBEHAVIORAL STATUS EXAM ATTENDING PHYSICIAN: Lars Whitlock M.D. UNDERGROUND MINE MACHINERY MECHANIC: Richy Smith, Phd. CLINICAL PRESENTATION: The patient is a 65-year-old female initially admitted to the hospital with shortness of breath. The patient was intubated in the Emergency Room and diagnosed with acute renal failure. Her assessment on admission to the rehabilitation unit was acute metabolic/hypoxic encephalopathy, medical complexity with generalized debility, aspiration pneumonia, COPD, acute respiratory failure status with intubation between 11/28/2020 to 12/01/2020, right ankle fracture, WBAT with CAM boot, dysphagia, L5-S1 annular tear, diffuse lumbar spondylosis, tobacco abuse, history of bipolar disorder, depression and anxiety, cirrhosis of the liver with a history of severe esophagitis, history of alcohol abuse and anemia. A complete description of her medical condition and history along with medications can be found in her medical record. Neuropsychological consultation was requested to provide assistance in the assessment of cognitive and emotional status and to provide recommendations and services. Prior to this most recent admission, the patient was living at home with her . She reports having amnesia surrounding her admission. Her reported memory includes a fall when getting out of a car and then awakening in the hospital. 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 TECHNIQUES UTILIZED: Clinical interview, review of medical records, staff consultation and behavioral observation, mini mental status exam 2 standard version, clock drawing and digits forward, digits backward and animal fluency -- category fluency. EXAMINATION FINDINGS: The patient was alert and cooperative with the assessment. She was unable to accurately describe events surrounding her hospitalization. Her report is having gotten out of a car when she sustained an injury and then awakening in the hospital. Difficulty with balance and [facility] [address] [place] [address] CONSULTATION Name: ANA NICHOLE Room #: 503-P [facility] IN M.R.#: [id number] Admission: 12/08/20 Attend Phys: Lars Whitlock MD Discharge: 12/20/20 Date of : 51 Report #: [id number] cognitive functioning are reported. She reports having been an alcoholic, but sober for 14 years. There is no cannabis use. She has a history of suicidal ideation and a remote attempted suicide. She describes her symptoms to include sleep disturbance, problems with memory, concentration and word finding. Anxiety disorder along with depressed mood is described. Her performance on the mini mental status exam 2 standard version was at the 4th percentile with a raw score of 23 and a T score of 33. She is alert and oriented. Impairment is noted with attention/concentration and visual spatial construction. The patient was unable to accurately draw a clock and set the hands at a designated time. Visual spatial disorganization was also noted in drawing. Category fluency was at the 4th percentile. Digits forward was within normal limits with a raw score of 8. Deficits in working memory associated with digits backward is noted with a raw score of 1. The patient is presenting with moderate deficits in neurocognitive functioning. While alert and oriented, significant impairment is noted with sustained concentration, visual spatial construction and executive functioning. DIAGNOSTIC IMPRESSION: Major neurocognitive disorder (dementia) -- unspecified -- extent to be determined, likely in the moderate range. Bipolar 1 disorder -- by history. Alcohol use disorder -- in sustained remission. RECOMMENDATIONS: The patient will require increased supervision to maintain safety in the home. Assistance will be necessary for medication, bill paying/personal financial counselor. Driving should be discontinued until more thorough neuropsychological assessment can be completed. Outpatient neuropsychological evaluation is recommended to clarify cognitive and emotional status. Thank you very much for allowing me to provide the consultation on this patient. Richy Smith, PhD NBD/HEM/ZOYA [facility] [address] [place] [address] CONSULTATION Name: ANA NICHOLE Room #: 503-P [facility] IN M.R.#: [id number] Admission: 12/08/20 Attend Phys: Lars Whitlock MD Discharge: 12/20/20 Date of : 51 Report #: [id number] <ELECTRONICALLY SIGNED> By: Richy Smith, PhD 12/22/20 1305 0633 Richy Smith, PhD /nt
== END 2020-12-20 13:50 | disposition home health service (06) | DRG 70 ==
PROVIDERS: Nurse Practitioner; Nurse Practitioner Family; ADMIT Physical Medicine & Rehabilitation; ATTEND Physical Medicine & Rehabilitation
DX: G93.41 Metabolic encephalopathy (principal); J69.0 Pneumonitis due to inhalation of food and vomit; J96.20 Acute and chronic respiratory failure, unspecified whether with hypoxia or hypercapnia; G93.1 Anoxic brain damage, not elsewhere classified; J44.1 Chronic obstructive pulmonary disease with (acute) exacerbation; E46 Unspecified protein-calorie malnutrition; R13.10 Dysphagia, unspecified; M47.816 Spondylosis without myelopathy or radiculopathy, lumbar region; F31.9 Bipolar disorder, unspecified; D64.9 Anemia, unspecified; R53.81 Other malaise; F41.9 Anxiety disorder, unspecified; F01.50 Vascular dementia, unspecified severity, without behavioral disturbance, psychotic disturbance, mood disturbance, and anxiety; K20.90 Esophagitis, unspecified without bleeding; E78.5 Hyperlipidemia, unspecified; G62.9 Polyneuropathy, unspecified; M51.87 Other intervertebral disc disorders, lumbosacral region; S82.891A Other fracture of right lower leg, initial encounter for closed fracture; W18.39XA Other fall on same level, initial encounter; F17.210 Nicotine dependence, cigarettes, uncomplicated; K70.30 Alcoholic cirrhosis of liver without ascites; K21.9 Gastro-esophageal reflux disease without esophagitis; Y93.89 Activity, other specified; Y92.89 Other specified places as the place of occurrence of the external cause; Y99.8 Other external cause status; Z88.0 Allergy status to penicillin; Z68.21 Body mass index [BMI] 21.0-21.9, adult; Z88.8 Allergy status to other drugs, medicaments and biological substances
CPT/HCPCS: 10112

== ENCOUNTER 2021-07-01 12:45 | Inpatient (IN) | payer OTHER ==
[~2021-07-01] VITALS: Ht 170.2 cm; Wt 73.9 kg
[~2021-07-01 12:45] MED LIST changes: +ASA81BEC PO; +CEFUROXIME500 MG PO; +ENOXAPARIN40 MG/0.1 SUBQ; +IPRAT-ALBUT 0.5-3 ML INH; +MIRALAX17 GM PER TUBE; +NEBULIZER MISCELL; +PEPCID20 MG PO; +PRIMIDONE50 MG PO; +PULMICORT0.5 MG/22 INH; +VENTOLIN HFA 1818 GM INH
[2021-07-01 13:01] VITALS: BP 125/78
[2021-07-01 14:55] LABS: HEMATOCRIT 38.9 % (37.0-47.0); HEMOGLOBIN 12.3 gm/dL (12.0-15.0); MCH 28.3 pg (26.0-34.0); MCHC 31.6 g/dL (28.0-37.0); MCV 89.4 fL (80.0-100.0); RBC 4.36 mil/uL (4.20-5.00); RDW 15.6 % (10.5-14.5); WBC 3.4 thou/uL (4.0-11.0)
[2021-07-01 15:26] LABS: CALCIUM 8.6 mg/dL (8.5-10.1); CREATININE 0.9 mg/dL (0.6-1.0); POTASSIUM 4.3 mmol/L (3.5-5.1)
[2021-07-01 15:32] LABS: ALBUMIN 3.2 g/dL (3.4-5.0); TOTAL BILIRUBIN 0.2 mg/dL (0.2-1.0); TOTAL PROTEIN 6.6 g/dL (6.4-8.2)
[2021-07-01 16:48] LABS: BE(vivo) -2.1 mmol/L (-2 to +3); HCO3 22.9 mmol/L (22.0-26.0); PCO2 40.2 mmHg (35.0-45.0); PO2 69.3 mmHg (80.0-100.0); pH 7.374 (7.360-7.450); sO2 93.6 % (92.0-98.0)
[2021-07-01] MEDS ORDERED: PLAVIX 75 MG TA75 MG PO (17:39)
[2021-07-01] MEDS ORDERED: FOSAMAX 70 MG T70 MG PO (17:40)
[2021-07-01] MEDS ORDERED: SIMVASTATIN80 MG PO (17:40)
[2021-07-01 17:45] VITALS: BP 118/57
[2021-07-01 17:52] LABS: URINE BILIRUBIN NEGATIVE (Negative); URINE BLOOD NEGATIVE (Negative); URINE CLARITY CLEAR; URINE COLOR YELLOW; URINE GLUCOSE-RANDOM* NEGATIVE (Negative); URINE KETONES NEGATIVE (Negative); URINE LEUKOCYTES-REFLEX 1+ (Negative); URINE NITRITE-REFLEX NEGATIVE (Negative); URINE PROTEIN (DIPSTICK) NEGATIVE (Negative); URINE SPECIFIC GRAVITY 1.025 (1.005-1.035); URINE UROBILINOGEN 0.2 E.U./dl (0.2-1.0)
[2021-07-01 18:04] LABS: HYALINE CASTS 0-3 Few /LPF (None Seen); SQUAMOUS 0-3 Few /LPF (0-3)
[2021-07-01 18:05] LABS: BACTERIA-REFLEX >30 Many /HPF (None Seen); CRYSTALS None Seen /LPF (None Seen); URINE RBC 1-2 Rare /HPF (NONE SEEN); URINE WBC-REFLEX 6-15 Few /HPF (0-5)
--- NOTE | 2021-07-01 21:22 | NUR ---
SPOKE TO GABRIEL CONCRETE BATCH PLANT OPERATOR ABOUT TRAZADONE DOSE. PATIENT TAKES 250MG TRAZADONE HS PER MED REC, 150MG ORDERED FOR HS MED PER JESSICA. PER GABRIEL, TRAZADONE DOSE TO STAY ORDER STATES AT 150MG DOSE UNTIL PATIENT SPEAKS TO HOSPITALIST DR LOPEZ ABOUT MEDICATION.
[2021-07-02 05:23] LABS: MCH 28.7 pg (26.0-34.0); MCHC 32.1 g/dL (28.0-37.0); MCV 89.4 fL (80.0-100.0); RBC 3.99 mil/uL (4.20-5.00)
[2021-07-02 05:26] LABS: HEMATOCRIT 35.6 % (37.0-47.0); HEMOGLOBIN 11.4 gm/dL (12.0-15.0); RDW 15.5 % (10.5-14.5)
[2021-07-02 05:28] LABS: CALCIUM 7.9 mg/dL (8.5-10.1); CREATININE 0.6 mg/dL (0.6-1.0); POTASSIUM 4.2 mmol/L (3.5-5.1)
[2021-07-02 05:33] LABS: WBC 1.8 thou/uL (4.0-11.0)
[2021-07-02 05:45] VITALS: BP 111/75
--- NOTE | 2021-07-02 12:05 | EKG ---
[address] [address] ELECTROCARDIOGRAM REPORT Name: ANA NICHOLE Room #: 170-11 [facility]..#: [id number] Admission: 07/01/21 Attend Phys: Rocky Grady MD Discharge: Date of : 51 Report #: [id number] [facility] ED Test Date: 2021-07-01 Test Time: 16:02:03 Pat Name: ANA NICHOLE Department: Room: 170 Gender: F Drug Discovery Informatics Specialist: rob : 1955 Requested By: Shilpa Freedman Order Number: [id number] MD: Shashi Gates Measurements Intervals [place] Rate: 93 P: 46 PA: 160 QRS: -3 QRSD: 77 T: 48 QT: 322 QTc: 401 Interpretive Statements Sinus rhythm Low voltage, extremity leads Compared to ECG 11/30/2020 09:29:47 No significant changes Electronically Signed On 07-02-2021 12:04:59 VOLUNTEER SERVICES COORDINATOR by Shashi Gates [email or web address] <ELECTRONICALLY SIGNED> By: Shashi Gates MD 07/02/21 1204 1602 01 Shashi Gates MD /CHUCHO
[2021-07-02 15:58] VITALS: BP 111/73
[2021-07-02 17:43] VITALS: BP 170/71
[2021-07-02 18:06] VITALS: BP 150/81
[2021-07-02 19:10] VITALS: BP 157/76
--- NOTE | 2021-07-03 03:19 | NUR ---
PT ALERT AND ORIENTED X4. PT IS A POOR HISTORIAN AND IS FORGETFUL. INSTRUCTED PT ON FALL PRECAUTIONS. ORIENTED PT TO RM. PT UNLABORED ON 2LNC. NO C/O PAIN. MO C/O SOA. NOS/S DISRESS TONIGHT SO FAR.
[2021-07-03 04:01] LABS: HEMATOCRIT 34.8 % (37.0-47.0); HEMOGLOBIN 11.3 gm/dL (12.0-15.0); MCH 28.8 pg (26.0-34.0); MCHC 32.5 g/dL (28.0-37.0); MCV 88.5 fL (80.0-100.0); RBC 3.93 mil/uL (4.20-5.00); RDW 15.3 % (10.5-14.5); WBC 2.5 thou/uL (4.0-11.0)
[2021-07-03 04:28] LABS: ALBUMIN 2.7 g/dL (3.4-5.0); ANION GAP 8 mmol/L (7-16); BUN 11 mg/dL (7-18); CALCIUM 8.2 mg/dL (8.5-10.1); CHLORIDE 110 mmol/L (98-107); CO2 25 mmol/L (21-32); CREATININE 0.7 mg/dL (0.6-1.0); DIRECT BILIRUBIN < 0.1 mg/dL (<0.1-0.2); GLUCOSE 84 mg/dL (74-106); PHOSPHORUS 2.6 mg/dL (2.5-4.9); POTASSIUM 3.7 mmol/L (3.5-5.1); SGOT 23 U/L (15-37); SGPT 21 U/L (30-65); SODIUM 143 mmol/L (136-145); TOTAL BILIRUBIN 0.1 mg/dL (0.2-1.0); TOTAL PROTEIN 5.8 g/dL (6.4-8.2)
[2021-07-03 04:29] VITALS: BP 163/93
--- NOTE | 2021-07-03 06:29 | NUR ---
PT RESTING QUIETLY THIS MORNING. NO C/O. SHE STATED SHE NEEDS TO GET SOME MORE SLEEP. SOME SOA NOTED WHILE GETTING TO BSC WHICH LASTED A FEW MINUTES.
--- NOTE | 2021-07-03 07:23 | HC ---
[facility] [place] [address] CONSULTATION Name: ANA NICHOLE Room #: 354-P [facility]..#: [id number] Admission: 07/01/21 Attend Phys: Rocky Grady MD Discharge: Date of : 51 Report #: [id number] THIS REPORT FOR: cc: FAM - Family physician unknown FAM - Family physician unknown Olaf Rogers MD ~ DATE OF SERVICE: 07/02/2021 INFECTIOUS DISEASE CONSULTATION ATTENDING PHYSICIAN: Dr. Grady. REASON FOR EVALUATION: COVID-19 infection, complicated by pneumonitis, respiratory failure. HISTORY OF PRESENT ILLNESS: Chart reviewed. The patient examined. This is a 66-year-old woman with known history of COPD, not clear has had any fevers. She has diminished p.o. intake. Initial evaluation did show bilateral interstitial type infiltrates on chest x-ray. Arterial blood gases showed a pH of 7.374, pCO2 of 40, pO2 of 69.3, on 2.5 liters, ____. CURRENT MEDICATIONS: Include clopidogrel, tamsulosin, dexamethasone, zinc, cholecalciferol, gabapentin, pantoprazole, olanzapine, trazodone, mirtazapine, lamotrigine, primidone, atorvastatin, ascorbic acid, enoxaparin, albuterol, hydrocodone as needed. PAST MEDICAL HISTORY: As described above, history of COPD, migraines, depression, bipolar disease, cirrhosis. SOCIAL HISTORY: Not available. FAMILY HISTORY: Noncontributory. REVIEW OF SYSTEMS: Otherwise, unremarkable. PHYSICAL EXAMINATION: GENERAL: She is lying in a right lateral decubitus position. She does open her eyes, makes little effort to engage, in mild to moderate distress, appears chronically ill and undernourished, at least mildly encephalopathic. VITAL SIGNS: Temperature 99.9, pulse 73, respirations 12, blood pressure 111/73. SKIN: Warm, dry, no rashes. HEENT: Normocephalic. Extraocular muscles intact. Nasal cannula in place at 2 liters. NECK: Supple. LUNGS: Bilateral few scattered coarse breath sounds, crackles at the bases. [facility] [address] [place] [address] CONSULTATION Name: ANA NICHOLE Room #: 354-P [facility].#: [id number] Admission: 07/01/21 Attend Phys: Rocky Grady MD Discharge: Date of : 51 Report #: [id number] HEART: Regular, has a soft systolic murmur. ABDOMEN: Mildly distended, otherwise soft, nontender. EXTREMITIES: No cyanosis. GENITOURINARY AND RECTAL: Deferred. LABORATORY DATA: CBC: White count 1.8, H and H 11.4 and 35.6, platelets of 102. Electrolytes: Sodium 141, potassium 4.2, chloride 110, bicarbonate is 24, BUN and creatinine 14 and 0.6. Estimated GFR of 99. Urinalysis, 6-15 white cells. Coronavirus testing was positive. 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 Liver function tests otherwise unremarkable. Albumin 3.2, total protein 6.6. ASSESSMENT AND PLAN: COVID-19 infection, complicated by pneumonitis with apparently some underlying chronic obstructive pulmonary disease. We will continue corticosteroids, add remdesivir, will add antibacterials as well. She is pancytopenic and certainly in the setting of low-grade fevers, would be concerning for secondary ____ bacterial infection. She appears overall quite tenuous. We will continue to monitor expectantly, oxygen supportive therapy as required. <ELECTRONICALLY SIGNED> By: Olaf Rogers MD 07/03/21 0723 [id number] Olaf Rogers MD /nt
[2021-07-03 08:27] VITALS: BP 119/63
[2021-07-03 16:26] VITALS: BP 143/63
--- NOTE | 2021-07-03 19:41 | NUR ---
RN ASSUMED PT'S CARE AT 0700-1900PM, PT IS A&OX4, PT IS ON O2 2-3L/MIN/NC AT DAY SHIFT, PT'S VS AND O2SAT ARE STABLE AT DAY SHIFT, PT GETS UP TO CHAIR , PT DENIES SOB .
[2021-07-03 19:55] VITALS: BP 142/73
[2021-07-03 22:06] LABS: HEMOGLOBIN 11.3 g/dL (11.1-15.9)
--- NOTE | 2021-07-03 23:41 | NUR ---
PT PROGRESSING TOWARDS D/C GOALS. VSS AFEBRILE. UNLABORED ON 1.5 LNC. PT SAT UP IN THE CHAIR INDEPENDENTLY. IV RESTARTED L FA DUE TO IV INFILTRATD AND WAS LEAKING. NO C/O PAIN OR SOA. NO S/S DISTRESS. WILL CONTINUE TO MONITOR PT FOR CHANGES.
[2021-07-04 04:20] LABS: ALBUMIN 2.6 g/dL (3.4-5.0); ANION GAP 10 mmol/L (7-16); BUN 10 mg/dL (7-18); CALCIUM 8.2 mg/dL (8.5-10.1); CHLORIDE 109 mmol/L (98-107); CO2 24 mmol/L (21-32); CREATININE 0.6 mg/dL (0.6-1.0); DIRECT BILIRUBIN < 0.1 mg/dL (<0.1-0.2); GLUCOSE 89 mg/dL (74-106); PHOSPHORUS 2.6 mg/dL (2.6-4.7); POTASSIUM 3.2 mmol/L (3.5-5.1); SGOT 20 U/L (15-37); SGPT 21 U/L (14-59); SODIUM 143 mmol/L (136-145); TOTAL BILIRUBIN 0.2 mg/dL (0.2-1.0); TOTAL PROTEIN 5.6 g/dL (6.4-8.2)
[2021-07-04 04:42] LABS: HEMATOCRIT 32.9 % (37.0-47.0); HEMOGLOBIN 10.7 gm/dL (12.0-15.0); MCH 28.7 pg (26.0-34.0); MCHC 32.6 g/dL (28.0-37.0); RBC 3.74 mil/uL (4.20-5.00); RDW 15.4 % (10.5-14.5); WBC 2.3 thou/uL (4.0-11.0)
[2021-07-04 05:13] VITALS: BP 126/68
[2021-07-04 07:43] VITALS: BP 134/72
--- NOTE | 2021-07-04 08:00 | NUR ---
PT PROGRESSING TOWRDS D/C GOALS. VSS 98.9. UNLABORED ON 1.5 LND. PT ANXIOUS TO GO HOME TODAY.
[2021-07-04 15:31] VITALS: BP 139/68
[2021-07-04 16:40] VITALS: BP 139/68
--- NOTE | 2021-07-04 16:45 | NUR ---
INITIAL ASSESSMENT: ALAN reviewed chart and spoke with nursing and attending physician. Pt was admitted from home due to hypoxia/COVID. Pt placed in Enhanced Isolation. Pt has not received a COVID vaccination. Pt is afebrile and on O2. Pt is on IV steroids. Discharge home is anticipated for tomorrow. ALAN spoke with pt via phone. Introduced role of SW. Pt is alert/orientated x 4. Pt reports she lives at home with her . Prior to admission, pt was independent with ADLs. Pt has a walker at home. Pt was on 5N earlier this year. Pt is agreeable with HH and home O2 if needed. Pt hoping to d/c home today. ALAN spoke with pt's , Jourdan, via phone. Introduced role of ALAN. Jourdan is aware of pt's discharge home tomorrow. Discussed recommendation for HH and Home O2. Jourdan is agreeable. Pt has used [facility] in the past for home O2. [facility] has picked up the DME, as pt was not using it. ALAN faxed home O2 referral to [facility] and notified [facility] liaison. No preference voiced of HH provider. ALAN notified [facility] liaison of new referral. Pt's PCP is Dr. Lars Chinchilla. Pt will need rest/exercise oximetry to determine home O2 needs. Pt's will be able to provide transportation home when medically stable. ALAN is following to assist as needed with discharge planning.
[2021-07-04 19:24] VITALS: BP 142/90
--- NOTE | 2021-07-04 20:05 | NUR ---
ASSUMED PATIENT CARE AT 0700. A/ 4 X4. UP TO CHAIR. PROGRESSING TOWARDS POC GOALS.
--- NOTE | 2021-07-05 04:07 | NUR ---
PT IS PROGRESSING TOWARD GOAL OF DISCHARGE. PT IS A&OX4 AND ABLE TO COMMUNICATE ALL WANTS AND NEEDS TO STAFF. PT IS UP WITH SBA TO BSC WITH GOOD URINARY OUTPUT AND BM X2 THIS SHIFT. SHE DOES CONTINUE TO HAVE A NON-PRODUCTIVE COUGH AND CONTINUES TO HAVE SHORTNESS OF AIR WITH EXERTION. ON 1.5L O2 PER NASAL CANULA WITH O2 SATS >95% THIS SHIFT. SINUS ARRHYTHMIA WITH PVC'S NOTED ON METHODS SPECIALIST ENGINEER. WILL CONTINUE TO OBSERVE FOR CHANGES.
[2021-07-05 05:26] VITALS: BP 139/70
[2021-07-05 05:47] LABS: HEMATOCRIT 34.9 % (37.0-47.0); HEMOGLOBIN 11.2 gm/dL (12.0-15.0); MCH 28.1 pg (26.0-34.0); MCHC 32.1 g/dL (28.0-37.0); MCV 87.5 fL (80.0-100.0); RBC 3.99 mil/uL (4.20-5.00); RDW 15.3 % (10.5-14.5); WBC 2.1 thou/uL (4.0-11.0)
[2021-07-05 06:23] LABS: ALBUMIN 2.5 g/dL (3.4-5.0); ANION GAP 10 mmol/L (7-16); BUN 9 mg/dL (7-18); CHLORIDE 109 mmol/L (98-107); CO2 26 mmol/L (21-32); CREATININE 0.6 mg/dL (0.6-1.0); DIRECT BILIRUBIN < 0.1 mg/dL (<0.1-0.2); GLUCOSE 90 mg/dL (74-106); PHOSPHORUS 2.5 mg/dL (2.5-4.9); POTASSIUM 3.1 mmol/L (3.5-5.1); SGOT 18 U/L (15-37); SGPT 18 U/L (30-65); SODIUM 145 mmol/L (136-145); TOTAL BILIRUBIN 0.2 mg/dL (0.2-1.0); TOTAL PROTEIN 5.6 g/dL (6.4-8.2)
[2021-07-05 09:21] VITALS: BP 130/72
[2021-07-05 13:00] LABS: MAGNESIUM 1.8 mg/dL (1.8-2.4)
[2021-07-05] MEDS ORDERED: CEFDINIR300 MG PO (13:53)
--- NOTE | 2021-07-05 14:47 | NUR ---
PT TO DISCHARGE TODAY WITH HH. DC ORDERS CONFIRMED WITH LETICIA TATUM. EXER OX COMPLETED. HOME O2 REFERRAL NOT INDICATED. PT WAS CLEARED BY RESPIRATORY. ROBI TATUM NOTIFIED O2 REFERRAL CANCELLED.
--- NOTE | 2021-07-05 20:05 | NUR ---
RN ASSUMED PT'S CARE AT 0700-1800PM, PT IS A&OX4, PT IS OFF O2 TODAY, PT DENIES SOB AND PAIN , RN RECEIVED ORDER TO DC PT TO HOME WITH HOME HEALTH, PT AND PT'S PEDRITOBAD ( ON PHONE ) UNDERSTAND DC TEACHING WELL , PT'S PACKAGE SORTER PT TO HOME AT 1800PM.
== END 2021-07-05 18:00 | disposition home health service (06) | DRG 177 ==
LOC: ER 12:45 → EROBS 17:43 → 3W 07-02 17:38
PROVIDERS: Nurse Practitioner Family; Specialist; ADMIT Hospitalist; ATTEND Hospitalist
PROC: XW033E5 Introduction of Remdesivir Anti-infective into Peripheral Vein, Percutaneous Approach, New Technology Group 5 (ICD-10-PCS; principal; 2021-07-03)
DX: U07.1 COVID-19 (principal); J12.82 Pneumonia due to coronavirus disease 2019; J96.01 Acute respiratory failure with hypoxia; N39.0 Urinary tract infection, site not specified; D61.818 Other pancytopenia; J44.0 Chronic obstructive pulmonary disease with (acute) lower respiratory infection; F32.9 Major depressive disorder, single episode, unspecified; K74.60 Unspecified cirrhosis of liver; E78.5 Hyperlipidemia, unspecified; F41.9 Anxiety disorder, unspecified; G43.909 Migraine, unspecified, not intractable, without status migrainosus; Z88.0 Allergy status to penicillin; Z79.82 Long term (current) use of aspirin; Z79.899 Other long term (current) drug therapy; Z28.21 Immunization not carried out because of patient refusal
CPT/HCPCS: 10879

== ENCOUNTER 2021-07-09 03:04 | Inpatient (IN) | payer OTHER ==
[~2021-07-09] VITALS: Ht 170.2 cm; Wt 62.8 kg
--- NOTE | ~2021-07-09 | EMS ---
[place] [id number] EMS Patient Care Report Name: ANA NICHOLE Room #: 359-P ADM IN M.R.#: [id number] Admission: 07/09/21 Attend Phys: Albert Batres MD Discharge: Date of : 51 Report #: [id number] THIS REPORT FOR: //name// Report Transmitted: 07/14/2021 14:07 EMS Care Summary [place], [place] Incident [id number] @ 07/09/2021 02:30 Incident Location [facility] [address] [place] [address] Patient ANA NICHOLE Female, 66 Years 1955 Patient Address [address] [place] [address] Patient History Novel Coronavirus (COVID-19), Patient Allergies Penicillin allergy, Patient Medications Simvastatin, Gabapentin, Lamotrigine, Alendronate, Olanzapine, Mirtazapine, Tamsulosin, Pantoprazole, Trazodone, Clopidogrel, Chief Complaint Altered mental status Disposition Transported No Lights/[place] Reason Sick Person Transported To [facility] Narrative Arrived on scene to be greeted by the patient's at the front door of the home. The stated that the patient had tested positive for Covid-19 one week prior. The stated the patient [place] [address] EMS Patient Care Report Name: ANA NICHOLE Room #: 359-P [facility]#: [id number] Admission: 07/09/21 Attend Phys: Albert Batres MD Discharge: Date of : 51 Report #: [id number] hospital to home within the last few days. The stated that the patient had a very rapid deterioration of symptoms leading to him finding the patient laying on her side in the hallway outside of restroom with an altered mental status. Patient believed she had fallen while going to our from the bathroom. Patient was unsure if she had hit her head or lost consciousness. Patient complained of a slight headache and "stomach aches." Vital signs obtained ant bedside showing the patient in the mid 70% range for her SPO2. Patient speech was difficult to understand, patient's tongue was appeared extremely dry to the point of being cracked. Patient had equal hooker operator bilateral hooker operator strength and no arm drift. Patient placed on 4lpm O2 via NC for movement from the home to the ambulance. Once in the ambulance Duoneb nebulizer treatment and 3 lead EKG obtained. Nebulizer treatment was effective in raising patient's SPO2 above 90%. Patient transported and transferred to receiving facility without further change in patient condition. Initial Vitals @02:44P: 115,CO: 10,SpO2: 92, @02:43P: 116,SpO2: 80, @02:36P: 121,SpO2: 75, @02:37P: 117,SpO2: 73, @02:52P: 113,R: 22,BP: 127/90,GCS: 13,CO: 2,SpO2: 93,Revised Trauma: 12, @02:36P: 122,R: 22,BP: 131/75,GCS: 13,Glucose: 155,CO: 5,SpO2: 73,Revised Trauma: 12, Assessments @02:36MENTAL:Confused,Person Oriented,SKIN:Hot,HEENT:Head/Face: Other,Neck/Airway: No Abnormalities,LUNG SOUNDS:Left Upper: No Abnormalities,Right Upper: No Abnormalities,Left Lower: No Abnormalities,Right Lower: No Abnormalities,ABDOMEN:Left Upper: No Abnormalities,Right Upper: No Abnormalities,Left Lower: No Abnormalities,Right Lower: No Abnormalities,PELVIS//GI:EXTREMITIES:PULSE:NEURO:Slurred Speech, Impression COVID-19 - Confirmed by testing Procedures @02:36 ALS Assessment Response: UnchangedSucceeded @02:44 3-Lead ECG Response: UnchangedSucceeded @02:44 Albuterol - 2.5 Milligrams (mg) - Nebulized Response: Improved @02:44 Atrovent - 0.5 Milligrams (mg) - Nebulized Response: Improved @02:38 Oxygen FlowRate: 4 Device: Nasal Cannula (NC) Response: ImprovedSucceeded Timeline 02:28,Call Received [address] [address] EMS Patient Care Report Name: ANA NICHOLE Room #: 359-P [facility] IN M.R.#: [id number] Admission: 07/09/21 Attend Phys: Albert Batres MD Discharge: Date of : 51 Report #: [id number] 02:28,Dispatch Notified 02:30,Dispatched 02:32,En Route 02:35,On Scene 02:36,At Patient 02:36,ALS Assessment,Response: UnchangedSucceeded, 02:36,BP: / M,PULSE: 121,RR: R,SPO2: 75 Ox,ETCO2: ,BG: ,PAIN: ,GCS: , 02:36,BP: 131/75 M,PULSE: 122,RR: 22 R,SPO2: 73 Ox,ETCO2: ,B,PAIN: ,GCS: 13, 02:37,BP: / M,PULSE: 117,RR: R,SPO2: 73 Ox,ETCO2: ,BG: ,PAIN: ,GCS: , 02:38,Oxygen FlowRate: 4 Device: Nasal Cannula (NC) Response: ImprovedSucceeded, 02:43,BP: / M,PULSE: 116,RR: R,SPO2: 80 Ox,ETCO2: ,BG: ,PAIN: ,GCS: , 02:44,Depart Scene 02:44,3-Lead ECG,Response: UnchangedSucceeded, 02:44,Albuterol - 2.5 Milligrams (mg) - Nebulized,Response: Improved 02:44,Atrovent - 0.5 Milligrams (mg) - Nebulized,Response: Improved 02:44,BP: / M,PULSE: 115,RR: R,SPO2: 92 Ox,ETCO2: ,BG: ,PAIN: ,GCS: , 02:50,At Destination 02:52,BP: 127/90 M,PULSE: 113,RR: 22 R,SPO2: 93 Ox,ETCO2: ,BG: ,PAIN: ,GCS: 13, 03:10,Call Closed Disclaimer v1.1 Copyright 2020 [email or web address] This EMS Care Summary contains data elements from the applicable legal record (which may be displayed differently). It is designed to provide pertinent information for the following purposes: continuity of care, clinical quality, and state data reporting. The complete legal record is available to ED staff and administrators of the receiving hospital in [employer] Patient Tracker. All data is provided "as is."
[~2021-07-09 03:04] MED LIST changes: +CEFDINIR300 MG PO; +PLAVIX 75 MG TA75 MG PO
[2021-07-09 03:07] VITALS: BP 133/60
[2021-07-09 03:52] LABS: ABSOLUTE NEUTROPHILS 2.4 thou/uL (1.4-8.2); BASOPHILS 0.5 % (0.0-2.0); EOSINOPHILS 0.3 % (0.0-3.0); HEMATOCRIT 35.6 % (37.0-47.0); HEMOGLOBIN 11.6 gm/dL (12.0-15.0); LYMPHOCYTES 19.1 % (24.0-44.0); MCH 28.6 pg (26.0-34.0); MCHC 32.7 g/dL (28.0-37.0); MCV 87.7 fL (80.0-100.0); MONOCYTES 8.1 % (1.0-8.0); PLATELET COUNT 159 thou/uL (150-400); RBC 4.06 mil/uL (4.20-5.00); RDW 15.3 % (10.5-14.5); WBC 3.3 thou/uL (4.0-11.0)
[2021-07-09 03:54] LABS: CALCIUM 8.4 mg/dL (8.5-10.1); POTASSIUM 3.6 mmol/L (3.5-5.1)
[2021-07-09 04:04] LABS: ALBUMIN 2.6 g/dL (3.4-5.0); DIRECT BILIRUBIN 0.2 mg/dL (<0.1-0.2); TOTAL BILIRUBIN 0.4 mg/dL (0.2-1.0); TOTAL PROTEIN 6.3 g/dL (6.4-8.2)
[2021-07-09 04:16] LABS: URINE BILIRUBIN NEGATIVE (Negative); URINE BLOOD NEGATIVE (Negative); URINE CLARITY CLEAR; URINE COLOR YELLOW; URINE GLUCOSE-RANDOM* NEGATIVE (Negative); URINE KETONES TRACE (Negative); URINE LEUKOCYTES-REFLEX NEGATIVE (Negative); URINE NITRITE-REFLEX NEGATIVE (Negative); URINE PROTEIN (DIPSTICK) NEGATIVE (Negative); URINE SPECIFIC GRAVITY 1.025 (1.005-1.035); URINE UROBILINOGEN 0.2 E.U./dl (0.2-1.0)
[2021-07-09] MEDS ORDERED: EMGALITY120 MG/1 M SUBQ (05:43)
--- NOTE | 2021-07-09 10:26 | EKG ---
[facility] [place] [address] ELECTROCARDIOGRAM REPORT Name: ANA NICHOLE Room #: 170-23 ADM IN M.R.#: [id number] Admission: 07/09/21 Attend Phys: Caren Birch MD Discharge: Date of : 51 Report #: [id number] [facility] ED Test Date: 2021-07-09 Test Time: 03:25:32 Pat Name: ANA NICHOLE Department: Room: 170 Gender: F Er Rn: TRINITY : 1955 Requested By: Lennox Mesa Order Number: [id number] MD: Darek Ang Measurements Intervals [place] Rate: 115 P: 44 NC: 148 QRS: 19 QRSD: 62 T: 8 QT: 344 QTc: 476 Interpretive Statements Sinus tachycardia Poor R wave progression Nonspecific ST and T wave abnormality Low voltage Compared to ECG 07/01/2021 16:02:03 Low voltage is now present Electronically Signed On 07-09-2021 10:26:31 HIDE AND SKIN CLASSER by Darek Ang [email or web address] <ELECTRONICALLY SIGNED> By: Darek Ang MD, [facility] 07/09/21 1026 4 4 Darek Ang MD, FAC /EPI
--- NOTE | 2021-07-09 14:46 | NUR ---
SPOKE WITH DR CHAUDHRY ABOUT NPO ORDER AND HE DID NOT KNOW WHY THAT WAS IN THERE. PT IS NOT HUNGRY AT THIS TIME BUT REQUESTED WATER
[2021-07-09 20:00] VITALS: BP 98/53
[2021-07-10] VITALS: BP 107/54
[2021-07-10 04:18] VITALS: BP 112/60
[2021-07-10 05:55] LABS: ABSOLUTE NEUTROPHILS 4.2 thou/uL (1.4-8.2); BASOPHILS 0.3 % (0.0-2.0); HEMATOCRIT 32.4 % (37.0-47.0); HEMOGLOBIN 10.6 gm/dL (12.0-15.0); LYMPHOCYTES 6.9 % (24.0-44.0); MCH 28.5 pg (26.0-34.0); MCHC 32.5 g/dL (28.0-37.0); MCV 87.5 fL (80.0-100.0); MONOCYTES 4.6 % (1.0-8.0); PLATELET COUNT 171 thou/uL (150-400); POLYS 88.2 % (36.0-66.0); RBC 3.71 mil/uL (4.20-5.00); RDW 15.1 % (10.5-14.5); WBC 4.7 thou/uL (4.0-11.0)
[2021-07-10 06:27] LABS: ALBUMIN 2.2 g/dL (3.4-5.0); CREATININE 0.6 mg/dL (0.6-1.0); POTASSIUM 4.3 mmol/L (3.5-5.1); TOTAL BILIRUBIN 0.3 mg/dL (0.2-1.0); TOTAL PROTEIN 5.9 g/dL (6.4-8.2)
[2021-07-10 12:33] VITALS: BP 118/61
--- NOTE | 2021-07-10 17:12 | NUR ---
66 year old female with recent COVID diagnosis and discharged on 07/05/21 presents to the ED on 07/09/21 reports falling at home and 02 sat per EMS was 70%. The patient has been re-admitted with Acute on chronic hypoxic respiratory failure 2/2 recurrent COVID-pneumonia vs COPD exacerbation. Unvaccinated, with COPD exacerbation. Patient was discharged without 02 per RT assessment on 07/05/21. The patient's spouse Jourdan Szymanski is listed as the next of kin and listed at [phone]. Patient will need therapy orders and assessments to work along with medical team to determine next level of care at discharge. CM will continue to follow for discharge needs.
[2021-07-10 20:48] VITALS: BP 136/65
[2021-07-11 04:11] VITALS: BP 144/79
[2021-07-11 06:04] LABS: ABSOLUTE NEUTROPHILS 3.3 thou/uL (1.4-8.2); HEMATOCRIT 31.3 % (37.0-47.0); HEMOGLOBIN 10.3 gm/dL (12.0-15.0); LYMPHOCYTES 5.6 % (24.0-44.0); MCH 28.7 pg (26.0-34.0); MONOCYTES 3.3 % (1.0-8.0); PLATELET COUNT 186 thou/uL (150-400); POLYS 91.1 % (36.0-66.0); RDW 15.2 % (10.5-14.5); WBC 3.7 thou/uL (4.0-11.0)
[2021-07-11 06:35] LABS: ANION GAP 8 mmol/L (7-16); BUN 7 mg/dL (7-18); CALCIUM 8.1 mg/dL (8.5-10.1); CHLORIDE 108 mmol/L (98-107); CO2 25 mmol/L (21-32); CREATININE 0.7 mg/dL (0.6-1.0); DIRECT BILIRUBIN < 0.1 mg/dL (<0.1-0.2); GLUCOSE 139 mg/dL (74-106); PHOSPHORUS 2.6 mg/dL (2.6-4.7); POTASSIUM 4.1 mmol/L (3.5-5.1); SGOT 22 U/L (15-37); SGPT 20 U/L (14-59); SODIUM 141 mmol/L (136-145); TOTAL BILIRUBIN 0.3 mg/dL (0.2-1.0); TOTAL PROTEIN 5.8 g/dL (6.4-8.2)
[2021-07-11 18:21] VITALS: BP 146/84
[2021-07-11 19:18] VITALS: BP 173/104
[2021-07-12 00:01] VITALS: BP 150/78
[2021-07-12 05:50] LABS: ALBUMIN 2.2 g/dL (3.4-5.0); ANION GAP 9 mmol/L (7-16); BUN 12 mg/dL (7-18); CALCIUM 8.2 mg/dL (8.5-10.1); CHLORIDE 110 mmol/L (98-107); CO2 25 mmol/L (21-32); CREATININE 0.7 mg/dL (0.6-1.0); DIRECT BILIRUBIN < 0.1 mg/dL (<0.1-0.2); GLUCOSE 169 mg/dL (74-106); POTASSIUM 4.2 mmol/L (3.5-5.1); SGOT 19 U/L (15-37); SGPT 20 U/L (30-65); SODIUM 144 mmol/L (136-145); TOTAL BILIRUBIN 0.2 mg/dL (0.2-1.0); TOTAL PROTEIN 5.3 g/dL (6.4-8.2)
[2021-07-12 06:13] VITALS: BP 147/93
[2021-07-12 07:41] VITALS: BP 157/87
--- NOTE | 2021-07-12 14:59 | NUR ---
Received consult. ALAN reviewed chart and spoke with nursing and attending physician. Pt was admitted from home after a fall. Pt placed in Enhanced Isolation due to COVID. Pt is afebrile and on 12L of O2. Pt is on IV meds and Remdesivir. Therapy evals ordered. Pt was discharged home on 07/05/2021 with [facility] . Pt and spouse declined services after discharge. ALAN is following to assist as needed with discharge planning.
[2021-07-12 17:59] VITALS: BP 160/70
--- NOTE | 2021-07-12 18:48 | NUR ---
RN ASSUMED PT'S CARE AT 0700AM, PT IS A&OX3 ( PERSON, PLACE AND TIME), PT IS CONTINUING IV ABX AND TREAT COVID MEDICATIONS, PT IS ON O2 11-14L/MIN/NC, PT'S VS AND O2SAT ARE STABLE AT DAY SHIFT, BUT PT HAS SOB WITH ACTIVITIES,
[2021-07-12 18:59] VITALS: BP 171/103
--- NOTE | 2021-07-12 22:57 | NUR ---
PT REQUESTED HS MEDS AT SPECIFIC TIME. PT ON 15L, IF O2 SAT DROP UNDER 90 RESPIRATORY STATED SHE WOULD BE PLACED ON OPTIFLO. LUNGS COARSE, FLUSHED SKIN TONE. PT WATCHING TV, NOT SOA WITH TALKING, NOTED TREMORS. DEAN TO DD. IVF INTACT. PT DECLINED HS SNACK.
[2021-07-12 23:45] VITALS: BP 150/88
[2021-07-13 03:24] VITALS: BP 123/63
[2021-07-13 04:03] LABS: ALBUMIN 2.3 g/dL (3.4-5.0); CALCIUM 8.5 mg/dL (8.5-10.1); CREATININE 0.7 mg/dL (0.6-1.0); DIRECT BILIRUBIN 0.1 mg/dL (<0.1-0.2); PHOSPHORUS 3.7 mg/dL (2.5-4.9); POTASSIUM 4.2 mmol/L (3.5-5.1); TOTAL BILIRUBIN 0.3 mg/dL (0.2-1.0); TOTAL PROTEIN 5.4 g/dL (6.4-8.2)
--- NOTE | 2021-07-13 06:23 | NUR ---
O2 SAT 87% ONCE AWAKENED, PULSE OX WAVE FORM INTACT. RESPIRATORY NOTIFIED. PREVIOUSLY PT HAD BEEN 96 TO 91% WHILE ASLEEP.
[2021-07-13 08:38] VITALS: BP 160/83
[2021-07-13 15:31] VITALS: BP 169/124
--- NOTE | 2021-07-13 17:45 | NUR ---
PT A+0 X 4. PT COMPLAINS OF EXTREME DISTRESS WHEN MEDICAL EQUIPMENT CONTINUES TO BEEP OR MAKE NOISE. PT WENT FROM 15 L TO OPTIFLOW AT BEGINNING OF SHIFT THIS AM, 60 L 80% FI02 CURRENTLY. PT ANXIOUS THROUGHOUT ENTIRE SHIFT. PT COMPLAINED OF MILD HEADACHE, WITH PARTIAL PAIN RELIEF FROM TYLENOL. WILL CONTINUE TO MONITOR.
[2021-07-13 19:24] VITALS: BP 174/49
--- NOTE | 2021-07-13 21:48 | NUR ---
ID AND PULMONARY UPDATED REGARDING 100%OPTI MARIA EUGENIA AND PTS MENTAL HEALTH HISTORY AND UNLIKELY ABILITY TO TOLERATE A BIPAP. INVESTIGATOR INTERNAL REVENUE UPDATED INCASE NEED FOR INTUBATION.
--- NOTE | 2021-07-13 22:35 | NUR ---
PT RESTING IN BED, SEMI FOWLERS, CONTINUOUS PULSE OX, LABORED RR, USE OF ACCESSORY MUSCLES WITH REPOSITIONING. OPTI MARIA EUGENIA INCREASED TO 100%, LUNGS WHEEZES AND CRACKLES. PT HAS TREMORS, PALE SKIN TONE. PT COMPLIANT WITH MEDICATION. PT ATE ICE CREAM INDEPENDENTLY. DIANNE TO CHANDNI. PT WATCHING TV, TALKING ON PHONE SMILING BUT REMAINS SOA WITH ACTIVIITES. BED ALARM ON.
[2021-07-14 00:06] VITALS: BP 100/58
[2021-07-14 02:56] LABS: ABSOLUTE NEUTROPHILS 3.5 thou/uL (1.4-8.2); BASOPHILS 0.1 % (0.0-2.0); EOSINOPHILS 0.1 % (0.0-3.0); HEMOGLOBIN 12.1 gm/dL (12.0-15.0); LYMPHOCYTES 13.9 % (24.0-44.0); MCH 28.2 pg (26.0-34.0); MCHC 32.7 g/dL (28.0-37.0); MCV 86.4 fL (80.0-100.0); MONOCYTES 6.1 % (1.0-8.0); PLATELET COUNT 235 thou/uL (150-400); POLYS 79.8 % (36.0-66.0); RBC 4.29 mil/uL (4.20-5.00); RDW 15.3 % (10.5-14.5); WBC 4.4 thou/uL (4.0-11.0)
[2021-07-14 03:11] LABS: ALBUMIN 2.5 g/dL (3.4-5.0); CALCIUM 9.3 mg/dL (8.5-10.1); CREATININE 0.8 mg/dL (0.6-1.0); DIRECT BILIRUBIN 0.1 mg/dL (<0.1-0.2); PHOSPHORUS 4.3 mg/dL (2.5-4.9); POTASSIUM 4.1 mmol/L (3.5-5.1); TOTAL BILIRUBIN 0.3 mg/dL (0.2-1.0); TOTAL PROTEIN 6.2 g/dL (6.4-8.2)
[2021-07-14 03:36] VITALS: BP 105/70
--- NOTE | 2021-07-14 04:57 | NUR ---
OPTIFLO DECREASED TO 70% BY RESPIRATORY, SATURATIONS REMAIN IN HIGH 90'S.
[2021-07-14 07:06] VITALS: BP 130/77
--- NOTE | 2021-07-14 15:04 | NUR ---
ALAN reviewed chart and spoke with nursing and attending physician. Pt remains in Enhanced Isolation due to COVID. Pt is afebrile and is requiring optiflow. Pt is on IV abx/steroids/lasix. Therapy evals have been ordered. No weekend discharge planned. ALAN spoke with pt's , Jourdan, via phone. Introduced role of ALAN. Pt known to SW from previous hospital stay. Pt's spouse states that pt refused to have HH services. Pt has used [facility] in the past for home O2. Pt's spouse provided with ALAN contact info. ALAN is following to assist as needed with discharge planning.
[2021-07-14 15:19] VITALS: BP 139/78
--- NOTE | 2021-07-14 18:30 | NUR ---
PT A+O X 4. PT EXTREMELY ANXIOUS THROUGHOUT SHIFT, STATING SHE WAS "AFRAID TO EAT BECAUSE THE BEEPING WILL START". NO COMPLAINTS OF PAIN. BEDSIDE TABLE AND CALL LIGHT WITHIN REACH. WILL CONTINUE TO MONITOR.
[2021-07-14 19:25] VITALS: BP 149/84
--- NOTE | 2021-07-14 21:51 | NUR ---
PT WATCHING TV, HIGH FOWLERS POSITION. CONTINUOUS PULSE OX. OPTI MARIA EUGENIA INCREASED TO 100%. PT RESTING, NOT SOA WITH CONVERSATION. LUNGS REMAIN COARSE. . TREMORS REMAIN. PALE SKIN TONE. DEAN TO DD. IVF INTACT. PT ASKING QUESTIONS RE IV ANTIBIOTIC NAME. BED ALARM ON.
[2021-07-15 04:45] VITALS: BP 144/80
[2021-07-15 05:00] VITALS: BP 117/64
--- NOTE | 2021-07-15 06:23 | NUR ---
OPTI MARIA EUGENIA 75% 50L DECREASED FROM 100% BY RESPIRATORY.
[2021-07-15 07:25] VITALS: BP 129/107
[2021-07-15 11:13] VITALS: BP 105/72
[2021-07-15 16:22] VITALS: BP 132/78
--- NOTE | 2021-07-15 16:53 | NUR ---
PT A+O X4. PT LESS ANXIOUS THROUGHOUT SHIFT TODAY. SPOKE WITH PT MARY ON PHONE THIS AFTERNOON AND UPDATED. PT ON 50L 75% fi02 CURRENTLY. FALL PRECAUTIONS IN PLACE. BEDSIDE TABLE AND CALL LIGHT WITHIN REACH. WILL CONTINUE TO MONITOR.
[2021-07-15 19:30] VITALS: BP 103/78
--- NOTE | 2021-07-16 03:19 | NUR ---
PT IS A/O X4 And is up with assistance x1 to bsc. denies c/o pain. continues on 50L with 75% fio2. medications given per mar.pt calls out appropriately for assistance. fall precuations in place, call light is within reach.
[2021-07-16 04:06] VITALS: BP 119/66
[2021-07-16 07:05] VITALS: BP 109/76
[2021-07-16 15:09] VITALS: BP 120/81
--- NOTE | 2021-07-16 18:07 | NUR ---
PATIENT REMAINS ON OPTIFLOW AT 50L AND 70% FIO2...ATTEMPTED TO WEAN BUT SHE DESATED...SHE IS VERY ANXIOUS AT TIMES...ENCOURAGE C/DB...
[2021-07-16 19:20] VITALS: BP 137/71
--- NOTE | 2021-07-17 03:10 | NUR ---
PT IS A/O X4 AND IS UP WITH ASSISTANCE. CONTINUES ON 50LITERS AT 70% FIO2. DENIES C/O PAIN OR DISCOMFORT. HS BS ELEVATED. INSULIN GIVEN PRESCRIBED. MEDICATIONS GIVEN PER MAR. FALL PRECAUTIONS IN PLACE, CALL LIGHT IS WITHIN REACH.
[2021-07-17 04:10] VITALS: BP 114/62
[2021-07-17 07:43] VITALS: BP 91/66
[2021-07-17 08:59] LABS: EOSINOPHILS 0.2 % (0.0-3.0); HEMATOCRIT 43.5 % (37.0-47.0); HEMOGLOBIN 14.2 gm/dL (12.0-15.0); LYMPHOCYTES 9.4 % (24.0-44.0); MCH 28.3 pg (26.0-34.0); MCHC 32.7 g/dL (28.0-37.0); MCV 86.4 fL (80.0-100.0); MONOCYTES 5.5 % (1.0-8.0); PLATELET COUNT 310 thou/uL (150-400); POLYS 83.9 % (36.0-66.0); RBC 5.03 mil/uL (4.20-5.00); RDW 15.1 % (10.5-14.5); WBC 8.3 thou/uL (4.0-11.0)
[2021-07-17 09:08] LABS: ALBUMIN 3.3 g/dL (3.4-5.0); CALCIUM 9.3 mg/dL (8.5-10.1); CREATININE 0.9 mg/dL (0.6-1.0); POTASSIUM 3.8 mmol/L (3.5-5.1); TOTAL BILIRUBIN 0.5 mg/dL (0.2-1.0)
[2021-07-17 15:32] VITALS: BP 156/82
--- NOTE | 2021-07-17 16:58 | NUR ---
SW reviewed chart and spoke with nursing and attending physician. Pt remains in Enhanced Isolation due to COVID. Pt is afebrile and on optiflow. Pt is on IV meds. GI consult ordered today. Therapy ordered. Plan is for pt to discharge home when medically stable. ALAN is following to assist as needed with discharge planning.
[2021-07-17 19:28] VITALS: BP 146/75
--- NOTE | 2021-07-17 20:03 | NUR ---
PT WATCHING TV. INTERACTING WITH STAFF. OPTI MARIA EUGENIA INTACT, LUNGS CRACKLES. TEMORS CONTINUE. DEAN TO DD. PALE SKIN TONE. PT SOAKING DENTURES. BED ALARM ON.
--- NOTE | 2021-07-18 01:41 | NUR ---
RESPIRATORY ADJUSTED OPTI MARIA EUGENIA TO 50L 60%. CONTINUOUS PULSE OX 98%.
[2021-07-18 03:52] VITALS: BP 119/76
[2021-07-18 05:08] LABS: INR 1.05; PROTIME 11.4 Seconds (10.5-12.1)
--- NOTE | 2021-07-18 05:14 | NUR ---
RESPIRATORY THERAPIST TITRATED OPTI MARIA EUGENIA TO 50L 50%.
[2021-07-18 07:28] VITALS: BP 115/64
[2021-07-18 15:10] VITALS: BP 133/69
--- NOTE | 2021-07-18 18:45 | NUR ---
RN ASSUMED PT'S CARE AT 0700AM, PT IS A&OX3 ( PERSON, PLACE AND TIME), PT IS ON OPTIFLOW O2 50%, 50L/MIN, PT'S O2SAT STAY AT 92-95%, BUT PT STILL HAS SOB WITH ACTIVITIES, INCLUDING PT IS EATING, PT'S VS ARE STABLE, PT DENIES PAIN AT DAY SHIFT.
[2021-07-18 19:23] VITALS: BP 155/88
--- NOTE | 2021-07-18 21:31 | NUR ---
PT ALERT AND ORIENTED X4. VSS AFEBRILE. DENIED PAIN . UNLABORED ON OPTIFLOW 50LF AND 50 FIO2 PRESENTLY. DENIED SOA. BED DOWN. CALL LIGHT IN REACH. BED ALARM IS ON. NAV CONTINUE TO MONITOR PT FOR CHANGES.
[2021-07-19 04:37] VITALS: BP 135/75
--- NOTE | 2021-07-19 05:52 | NUR ---
PTS O2 SATS FLUCTUATING TONIGHT. RT WAS ABLE TO TITRATE FIO2 AND LF TO 45. SATS DECREASED TNIS AM TO 88%. INCREASED FIO2 TO 55% AND NOTIFIED RT I TITRATED HER BACK UP. ENCOURAGED PT TO EAT. SHE STATES SHE HAS NO APPETITE. SHE DID EAT 1 PUDDING THIS AM.
[2021-07-19 07:54] VITALS: BP 125/65
--- NOTE | 2021-07-19 15:09 | NUR ---
ALAN reviewed chart and spoke with nursing and attending physician. Pt remains in Enhanced Isolation due to COVID. Pt is afebrile and on 10L of O2. Pt is on IV steroids and IV lasix. 5N to evaluate pt tomorrow for possible admission for inpt acute rehab prior to returning home. Pt will be out of Enhanced Isolation on 07/21. ALAN placed call to pt's room. Line was busy. ALAN spoke with pt's spouse, Jourdan, via phone to discuss discharge plan. Jourdan states he is supportive of pt going to 5n or SNF if needed and recommended prior to returning home. Pt's spouse wants pt to be strong enough to stay home and not having to return to the hospital. ALAN reviewed post-acute placement options: SNF v. acute rehab, outpatient therapy and home with HH. Pt's spouse to discuss possible post-acute placement with pt. ALAN is following to assist as needed with discharge planning.
[2021-07-19 16:16] VITALS: BP 149/82
--- NOTE | 2021-07-19 18:48 | NUR ---
RN ASSUMED PT'S CARE AT 0700AM, PT IS A&OX3 ( PERSON, TIME AND PLACE), PT'S IS OFF OPTIFLOW AND PT IS ON O2 10L/MIN/NC, PT'S O2SAT STAY AT 91-93%, PT STILL HAS SOB WITH ACTIVITIES, PT'S VS ARE STABLE BY THIS TIME, PT 'S EATING HAS IMPROVED, PT IS GETS UP TO CHAIR WITH ASSIT.
[2021-07-19 19:32] VITALS: BP 162/91
--- NOTE | 2021-07-19 20:50 | NUR ---
PT ALERT AND ORIENTED X3. FORGETFUL AT TIMES. VSS AFEBRILE. SATS WNL ON 3LNC PRESENTLY. DENIED PAIN OR SOA. ORAL AND PERICARE DONE. BED DOWN. MAYNOR LIGHT IN REACH. NO S/s distress presently.
[2021-07-20 03:27] VITALS: BP 125/64
--- NOTE | 2021-07-20 07:20 | NUR ---
PT DESATTED TO 84% AROUND 0530. RT INCREASED SLOWLY BACK UP TO 10LNC. ENC PT TO T,C,DB. PT WAS UNABLE LINDSEY COUGH ANYTHING OUT. ENCOURAGED PT TO GET BACK INTO CHAIR THIS AMFOR BREAKFAST.
[2021-07-20 07:22] VITALS: BP 143/78
--- NOTE | 2021-07-20 13:41 | NUR ---
ALAN reviewed chart and spoke with nursing and attending physician. Pt remains in Enhanced Isolation due to COVID. Pt to have isolation precautions discontinued tomorrow. Pt is afebrile and on 10L of O2. PT is on IV steroids and IV lasix. Johana consulted. ALAN spoke with pt via phone to discuss discharge plan. Pt is agreeable with admission to if accepted. Pt states she would benefit from additional therapy services prior to returning home. Pt was not on O2 prior to admission. ALAN contacted liaison. Awaiting input from at this time. ALAN is following to assist as needed with discharge planning.
[2021-07-20 15:31] VITALS: BP 145/77
--- NOTE | 2021-07-20 18:50 | NUR ---
RN ASSUMED PT'S CARE AT 0700AM, PT IS A&OX3 ( PERSON, PLACE AND TIME), PT IS CONFUSED AT TIME, PT IS CONTINUING O2 10L/MIN/NC, PT'S O2SAT STAY AT 92-95%, PT HAS SOB WITH ACTIVIED, PT NEEDS HELP MEAL TIMES AND ADL.
[2021-07-20 19:49] VITALS: BP 157/91
--- NOTE | 2021-07-20 23:26 | NUR ---
PT SITTING UP IN BED. O2 NC INTACT. PT EATING HER DINNER, FOOD IN BED AND ON GOWN. TEMORS CONTINUE. GOWN AND LINENS CHANGED. LUNGS DIMINISHED, BS DECREASED, PALE SKIN TONE. DEAN TO DD. MINIMAL VERBAL INTERACTIONS, BLANK STARE. PT VERY DIRECT WHEN MAKING REQUESTS TO NURSING STAFF. BED ALARM ON.
[2021-07-21 02:48] LABS: HEMATOCRIT 42.6 % (37.0-47.0); MCH 28.5 pg (26.0-34.0); MCHC 32.8 g/dL (28.0-37.0); MCV 86.8 fL (80.0-100.0); RBC 4.91 mil/uL (4.20-5.00); RDW 15.9 % (10.5-14.5); WBC 9.8 thou/uL (4.0-11.0)
[2021-07-21 04:22] LABS: CALCIUM 9.6 mg/dL (8.5-10.1); POTASSIUM 3.5 mmol/L (3.5-5.1)
[2021-07-21 04:25] VITALS: BP 146/54
--- NOTE | 2021-07-21 05:50 | NUR ---
PT REFUSED GABPENTIN LAST NIGHT AND THIS MORNING STATING IT MAKES HER HYPER.
[2021-07-21 07:26] VITALS: BP 140/87
[2021-07-21 14:48] VITALS: BP 127/75
[2021-07-21 19:11] VITALS: BP 160/86
--- NOTE | 2021-07-21 23:30 | NUR ---
TOOK OVER CARE. PT ASLEEP. CONTINUOUS PULSE OX INTACT. O2 PER NC. BED ALARM ON.
[2021-07-22 02:30] VITALS: BP 150/76
[2021-07-22 07:27] VITALS: BP 139/94
[2021-07-22 15:32] VITALS: BP 151/102
--- NOTE | 2021-07-22 16:59 | NUR ---
RN ASSUMED PT'S CARE AT 0700AM, PT IS A&OX3 ( PERSON, TIME AND PLACE ), PT IS ON O2 10L/MIN/NC, PT'S O2SAT STAY AT 92-95%, PT'S VS ARE STABLE BY THIS TIME, PT STILL HAS SOB WITH ACTIVITIES, PT NEEDS HELP MEALS AND ADL, PT DENIES PAIN BY THIS TIME.PT IS CONTINUING LASIX 40MG IV AND TREAT COVID MEDICATIONS.
[2021-07-22 18:31] VITALS: BP 149/85
--- NOTE | 2021-07-22 22:20 | NUR ---
PT SITTING UP IN BED WATCHING SPORTS ON TV. PT HAVING INCREASE IN FULL BODY TREMORS, GRINDING MOUTH, STARING AHEAD BUT TALKING WITH STAFF. LUNGS WITH CRACKLES, O2 NC 8L, CONTINUOUS PULSE OX. PALE SKIN TONE. PT CONTINUES TO REFUSE GABAPENTIN. NOTED INCREASE IN BEHAVIORS, PT REPETITIVELY STATING SHE TOLD ME i DID SOMETHING WRONG, I AM GOING INTO OVERTIME. IT IS GOING TO BE 8 THEN 9 THEN 10. PT NOT ABLE TO BE VERBALLY REDIRECTED OR ENGAGED IN ANOTHER CONVERSATION. PT PROVIDED HS SNACK. DIANNE TO CHANDNI. BED ALARM ON.
[2021-07-23 07:53] VITALS: BP 157/84
[2021-07-23 15:15] VITALS: BP 126/87
--- NOTE | 2021-07-23 18:35 | NUR ---
RN ASSUMED PT'S CARE AT 0700AM, PT IS A&OX2 ( PERSON AND TIME), PT IS CONFUSED AT TIME, PT IS ON O2 5-6 L/MIN/NC, PT'S O2SAT STAY AT 92-95%, BUT PT STILL HAS SOB WITH ACTIVITIES, PT NEEDS HEAL ADL AND MEALS, PT DENIES PAIN AT DAY SHIFT,
[2021-07-23 19:15] VITALS: BP 121/75
[2021-07-24 06:10] VITALS: BP 118/65
[2021-07-24 06:58] VITALS: BP 129/71
[2021-07-24 09:09] LABS: HEMATOCRIT 46.6 % (37.0-47.0); HEMOGLOBIN 15.1 gm/dL (12.0-15.0); MCH 28.2 pg (26.0-34.0); MCHC 32.3 g/dL (28.0-37.0); MCV 87.3 fL (80.0-100.0); RBC 5.34 mil/uL (4.20-5.00); RDW 16.5 % (10.5-14.5); WBC 13.2 thou/uL (4.0-11.0)
[2021-07-24 09:16] LABS: CALCIUM 9.2 mg/dL (8.5-10.1); POTASSIUM 3.4 mmol/L (3.5-5.1)
[2021-07-24 11:25] VITALS: BP 151/82
--- NOTE | 2021-07-24 14:29 | NUR ---
ALAN reviewed chart and spoke with nursing and attending physician. Enhanced Isolation precautions have been discontinued as of 07/21/2021. ALAN discussed with pt's nurse. Pt is afebrile and on O2 via NC. Pt remains on IV steroids. Pt did need 10L of O2 with therapy earlier today. [facility] has accepted pt for admission when medically stable. ALAN spoke with pt via phone to discuss discharge plan. Pt is aware and in agreement with plan. ALAN spoke with pt's , Jourdan, via phone to provide update as well. Jourdan is aware and in agreement with plan. Jourdan states he is wanting pt to get the COVID vaccine when she is eligible. Case discussed with [facility] rehabilitation manager. ALAN is following to assist as needed with discharge planning.
--- NOTE | 2021-07-24 14:56 | NUR ---
PT REMAINS ON 10L OF O2 AND UNABLE TO TOLERATE ACUTE REHAB THIS DATE. WILL RE-EVALUATE TOMORROW FOR APPROPRIATE DISCHARGE NEEDS
[2021-07-24 16:16] VITALS: BP 124/64
--- NOTE | 2021-07-24 19:15 | NUR ---
RN ASSUMED PT'S CARE AT 0700-1900PM, PT IS A&OX3 ( PERSON , PLACE AND TIME), PT IS O2 5-7L/MIN/NC, PT'S O2SAT STAY AT 92-96%, BUT PT STILL HAS SOB WITH ACTIVITIES, PT'S VS ARE STABLE AT DAY SHIFT.
[2021-07-24 20:05] VITALS: BP 132/79
--- NOTE | 2021-07-24 23:30 | NUR ---
PT RESTING IN BED WATCHING JAINISM. O2 PER NC. DEAN TO CHANDNI. PT REMAINS CONFUSED TO TIME. TREMORS REMAIN. PT STARES AT TELEVISION VERSUS GIVING NURSE EYE CONTACT. PT COMPLIANT WITH MEDICATIONS. PT EARLIER IN SHIFT TALKED WITH HER ON THE PHONE AND TOLD HIM SHE WAS GOING TO REFUSE HER MEDICATIONS. PT PROVIDED HS SNACK AND SHE FED HERSELF. BED ALARM ON.
[2021-07-25 04:30] VITALS: BP 105/59
[2021-07-25 07:19] VITALS: BP 136/77
[2021-07-25 14:59] VITALS: BP 119/74
--- NOTE | 2021-07-25 15:57 | NUR ---
SW reviewed chart and spoke with nursing and attending physician. Pt is on 6L of O2 at rest and required 10L with activity earlier today. [facility] is following for admission to rehab when pt is medically stable. SW spoke with pt's via phone to provide update. Agreeable with discharge plan. SW is following to assist as needed with discharge planning.
--- NOTE | 2021-07-25 16:11 | NUR ---
RN ASSUMED PT'S CARE AT 0700AM, PT IS A&OX3 ( PERSON, PLACE AND TIME ), PT IS ON O2 6-8L/MIN/NC, PT'S O2SAT STAY AT 92-96%, BUT PT STILL HAS SOB WITH ACTIVITIES, PT GETS UP TO CHAIR WITH ASSIST, PT'S VS ARE STABLE BY THIS TIME, PT DENIES PAIN AT DAY SHIFT.
[2021-07-25 18:44] VITALS: BP 142/86
--- NOTE | 2021-07-26 03:08 | NUR ---
Able to answer orientation questions at beginning of shift though very forgetful. Frequent reorientation given.She has been repositioned for comfort. O2 at 4L/NC with O2 sat in the mid 90's. Denies any pain. Slept well during the night.Making progress towards care plan goals.
[2021-07-26 03:26] VITALS: BP 124/80
[2021-07-26 07:20] VITALS: BP 124/68
[2021-07-26 08:00] LABS: CREATININE 0.7 mg/dL (0.6-1.0); POTASSIUM 3.6 mmol/L (3.5-5.1)
--- NOTE | 2021-07-26 14:46 | NUR ---
SW reviewed chart and spoke with nursing and attending physician. Pt is on 4L at rest and 10L with activity. Pt is on IV steroids. [facility] is following. Pt has required 10L with activity again today. Discussed with [facility] vocational rehabilitation specialist. SW spoke with pt's via phone. Update provided. Pt to move to [facility] when appropriate. SW is following to assist as needed with discharge planning.
[2021-07-26 15:25] VITALS: BP 119/78
--- NOTE | 2021-07-26 18:46 | NUR ---
RN ASSUMED PT'S CARE AT 0700AM, PT IS A&OX3 ( PERSON, TIME, AND PLACE), PT IS ON O2 4-5L/MIN/NC, BUT PT STILL HAS SOB WITH EXERTION, PT'S VS AND O2SAT ARE STABLE, PT HAS WORKING WITH PT/OT , PT GETS UP TO CHAIR WITH ASSIST, PT DENIES PAIN BY THIS TIME.
[2021-07-26 20:22] VITALS: BP 132/81
[2021-07-27 03:00] VITALS: BP 121/78
--- NOTE | 2021-07-27 03:16 | NUR ---
TOOK OVER PT CARE AROUNG 1900. PT ABLE TO ANSWER ORIENTATION QUESTIONS APPROPRIATELY BUT IS NOT SITUATIONALLY AWARE. EDUCATION PROVIDED ABOUT CARE PLAN, MEDICATIONS, AND FALL PRECAUTIONS. PT TRANSFERED FROM CHAIR TO BED WITH MODERATE ASSISTENCE. PT REMAINS ON 4L NC, DEAN IN PLACE, VITALS STABLE. NO ACUTE MEDICAL EVENTS THIS SHIFT, WILL CONTINUE TO MONITOR AND FOLLOW PLAN OF CARE PT IS WILLING
[2021-07-27 07:25] VITALS: BP 142/86
--- NOTE | 2021-07-27 12:21 | NUR ---
SW reviewed chart and spoke with nursing and attending physician. Pt is progressing towards goals for discharge. Pt is on IV steroids and on 5L at rest and has needed 10L with activity. Case discussed with [facility] vocational rehabilitation counselor to determine when pt is able to discharge to [facility]. ALAN is following to assist as needed with discharge planning.
[2021-07-27] MEDS ORDERED: PREDNISONE 20 M20 M1 PO (14:39)
[2021-07-27] MEDS ORDERED: MIRALAX17 GM PO (14:39)
[2021-07-27] MEDS ORDERED: ENOXAPARIN30 MG/0.3 SUBQ (14:39)
[2021-07-27] MEDS ORDERED: ACETAMINOPHEN325 M1 PO (14:39)
[2021-07-27 15:20] VITALS: BP 128/72
== END 2021-07-27 18:33 | DRG 177 ==
LOC: ER 03:04 → 3W 05:37 → EROBS 05:37 → 3W 07-11 18:29
PROVIDERS: Hospitalist; Internal Medicine; Nurse Practitioner; Nurse Practitioner Family; Pediatrics; Specialist; Student in an Organized Health Care Education/Training Program; ADMIT Internal Medicine; ATTEND Internal Medicine
DX: U07.1 COVID-19 (principal); J12.82 Pneumonia due to coronavirus disease 2019; E43 Unspecified severe protein-calorie malnutrition; J80 Acute respiratory distress syndrome; J44.1 Chronic obstructive pulmonary disease with (acute) exacerbation; D61.818 Other pancytopenia; J44.0 Chronic obstructive pulmonary disease with (acute) lower respiratory infection; F32.9 Major depressive disorder, single episode, unspecified; F41.9 Anxiety disorder, unspecified; L13.9 Bullous disorder, unspecified; G47.33 Obstructive sleep apnea (adult) (pediatric); K74.60 Unspecified cirrhosis of liver; R53.81 Other malaise; R25.1 Tremor, unspecified; G43.809 Other migraine, not intractable, without status migrainosus; E78.5 Hyperlipidemia, unspecified; Z90.49 Acquired absence of other specified parts of digestive tract; Z88.0 Allergy status to penicillin; Z88.8 Allergy status to other drugs, medicaments and biological substances; Z86.16 Personal history of COVID-19; Z82.49 Family history of ischemic heart disease and other diseases of the circulatory system; Z81.8 Family history of other mental and behavioral disorders; Z87.891 Personal history of nicotine dependence; Z68.21 Body mass index [BMI] 21.0-21.9, adult; Z79.899 Other long term (current) drug therapy
CPT/HCPCS: 10879

== ENCOUNTER 2021-07-27 15:05 | Inpatient (IN) | payer OTHER ==
[~2021-07-27] VITALS: Ht 170.2 cm; Wt 63.5 kg
[~2021-07-27 15:05] MED LIST changes: +ACETAMINOPHEN325 M1 PO; +EMGALITY120 MG/1 M SUBQ; +ENOXAPARIN30 MG/0.3 SUBQ; -PANTOPRAZOLE SO40 M1 PO; +PREDNISONE 20 M20 M1 PO
[2021-07-27 19:40] VITALS: BP 145/69
--- NOTE | 2021-07-28 02:50 | NUR ---
ASSUMED CARE OF PT AT 1930 ON 07/27/21. PT IS A&OX3 TO SELF, PLACE, & TIME. HAS MOMENTS OF CONFSUION, ANXIETY, & CAN BE IMPULSIVE. DENIES PAIN. IS STABLE. WAS ADMITTED TO [facility] ([phone]) AT APPROX 1830 FROM [facility] (359). THIS NURSE COMPLETED THE ADMISSION ASSESSEMENT, EDUCATION, & SEPSIS. SPOUSE TO SIGN CONSENTS WHEN HE COMES IN TODAY. PT WAS PROVIDED WITH ADMISSION BOOKLET & WAS ORIENTED TO UNIT & CALL LIGHT. CONSULTS WERE CALLED. PT IS STABLE. IS ON 4L OF O2/NC. HAS RFA PERIPHERAL IV SL. IS UP WITH 1 ASSIST, GB, WALKER. FALL PRECUATIONS & HOURLY ROUNDING IMPLEMENTED THIS SHIFT. LABS & VITALS REVIEWED. PT IS CURRENTLY ASLEEP. CALL LIGHT WITHIN REACH. WILL CONTINUE TO MONITOR.
[2021-07-28 07:15] VITALS: BP 94/56
[2021-07-28 07:46] LABS: HEMATOCRIT 37.8 % (37.0-47.0); HEMOGLOBIN 12.1 gm/dL (12.0-15.0); MCH 28.5 pg (26.0-34.0); MCHC 32.1 g/dL (28.0-37.0); MCV 88.8 fL (80.0-100.0); RBC 4.26 mil/uL (4.20-5.00); RDW 17.2 % (10.5-14.5); WBC 4.5 thou/uL (4.0-11.0)
[2021-07-28 08:05] LABS: CREATININE 0.7 mg/dL (0.6-1.0); POTASSIUM 3.3 mmol/L (3.5-5.1)
[2021-07-28 19:39] VITALS: BP 120/78
--- NOTE | 2021-07-28 19:50 | NUR ---
PT ALERT AND ORIENTED X 4. DENIES PAIN OR DISCOMFORT. CXR REVEALED INFILTRATES TO RT. MIDDLE AND BILATERAL LOWER LOBES. NO EFFUSIONS. TO WEAR THIGH HIGH TEDS FOR ORTHOSTASIS. WE ARE TO ENCOURAGE PO FLUID INTAKE.
--- NOTE | 2021-07-29 02:47 | NUR ---
assumed care approx 1900 evening 07/28. pt sitting up in w/c at change of shift with spouse at bedside. coffman to dd with dark yellow urine to bag. pt sat up until approx 0 and then assisted into bed. pt with tremors and fixated on having lights turned out right away. gave pt hs meds and since then appears to be sleeping soundly. bed alarm on and call light in reach. will continue to monitor.
--- NOTE | 2021-07-29 15:02 | NUR ---
PT REMAINS ALERT AND ORIENTED X 4, ALTHOUGH NOTED TO HAVE MORE CONFUSION TODAY THAN YESTERDAY. CONTINUES TO FIXATE ON CERTAIN THINGS AND AT ONE POINT BEGAN YELLING AT TECH TELLING HER NOT TO CLOSE THE BLINDS. WHEN TECH TOLD PT SHE WASN'T GOING TO CLOSE THE BLINDS, PT CONTINUED TO YELL AT TECH NOT TO CLOSE THE BLINDS. DIET CHANGED TO PUREED WITH NECTAR THICK LIQUIDS. MEDS WHOLE IN APPLESAUCE. ST WANTS PT TO EAT IN DINING ROOM FOR ALL MEALS. DENIES PAIN OR DISCOMFORT.
[2021-07-29 20:01] VITALS: BP 101/59
--- NOTE | 2021-07-30 05:49 | NUR ---
ASSUMED CARE OF PT AT 1920 ON 07/29/21. PT IS A&OX3. IS ON 4L/NC. IS STABLE. DEAN IN PLACE. DENIES PAIN. IS UP WITH 1 ASSIST, GB, WALKER. FALL PRECAUTIONS & HOURLY ROUNDING CONTINUED THIS SHIFT. LABS & VITALS REVIEWED. CALL LIGHT WITHIN REACH. WILL CONTINUE TO MONITOR. PT IS ASLEEP AT THIS TIME.
[2021-07-30 07:35] VITALS: BP 94/43
--- NOTE | 2021-07-30 18:30 | NUR ---
PT ANXIOUS THROUGHOUT SHIFT AND KEEPS STATING SHE SHOULD NOT BE HERE AND THAT SHE CAN'T BE HERE ANYMORE. PT YELLING PUT FROM ROOM THROUGHOUT SHIFT. PT ATE ALL MEALS IN DINING ROOM. PT UP IN WC AT THIS TIME. WILL CONTNIUE TO MONITOR.
[2021-07-30 19:55] VITALS: BP 119/72
--- NOTE | 2021-07-30 23:24 | NUR ---
PT ALERT AND ORIENTED X 4, CONFUSED AT TIMES. 02 ON AT 4L PER NC. DEAN PATENT DRAINING CLEAR DARK YELLOW URINE. PT TAKES MEDS IN APPLESAUCE WITHOUT DIFFICULTY. PT DENIES PAIN OR DISCOMFORT. BED ALARM ON FOR SAFETY. PT APPEARS TO BE SLEEPING ON HOURLY ROUNDS.
[2021-07-31 06:51] LABS: ABSOLUTE NEUTROPHILS 2.7 thou/uL (1.4-8.2); BASOPHILS 0.9 % (0.0-2.0); HEMATOCRIT 32.7 % (37.0-47.0); HEMOGLOBIN 10.5 gm/dL (12.0-15.0); LYMPHOCYTES 19.4 % (24.0-44.0); MCH 28.9 pg (26.0-34.0); MCHC 32.1 g/dL (28.0-37.0); MONOCYTES 6.1 % (1.0-8.0); PLATELET COUNT 95 thou/uL (150-400); POLYS 69.6 % (36.0-66.0); RBC 3.63 mil/uL (4.20-5.00); RDW 17.8 % (10.5-14.5); WBC 3.9 thou/uL (4.0-11.0)
[2021-07-31 07:37] LABS: CALCIUM 9.1 mg/dL (8.5-10.1); CREATININE 0.6 mg/dL (0.6-1.0); MAGNESIUM 2.3 mg/dL (1.8-2.4); POTASSIUM 4.1 mmol/L (3.5-5.1)
[2021-07-31 08:00] VITALS: BP 123/65
--- NOTE | 2021-07-31 12:29 | NUR ---
66 yr old female, came to the hospital a fall at home with shortness of breath. she was diagnosed with covid 19 pneumonia, acute hypoxemic respiratory failure, and AE COPD. she is unvaccinated. ID, pulmonary consulted. she has also had confusion that has improved as medical status improving. She lives with her Jourdan, # [phone]. Independent when feeling good. Has a walker but does not use it. Had home oxygen through [facility] but no lower needs it, so it was returned to [facility]. No stairs at home. PCP Dr Lars Gastelum. [facility] Gomez in the past. Been to acute rehab here in the past. Unable to visit with her related to, she is out of her room for video swallow. Spoke with her spouse Jourdan. He going to bring her some more clothes up. He assists with medication and finances at home. Medication is under lock and coto related to her past drinking and suicide. She has not had a drink since 2005 or , but I help her with her medication anyway per Jourdan. She is confused today, sometimes she would have confusion but not often, few and far between per Jourdan.
[2021-07-31 19:13] VITALS: BP 146/68
--- NOTE | 2021-08-01 01:03 | NUR ---
ASSUMED CARE OF PT AT 1910 ON 07/31/21. IS ON 2L OF O2/NC. DENIES PAIN. IS STABLE. HAS TREMORS. IS UP WITH SHANTA ASSIST, SARATH, WALKER. FALL PRECATUIONS & HOURLY ROUNDING CONTINUED THIS SHIFT. LABS & VITALS REVIEWED. PT IS ABLE TO REPOSITION SELF IN BED. IS CURRENTLY ASLEEP. CALL LIGHT WITHIN REACH. WILL CONTINUE TO MONITOR.
[2021-08-01 07:24] VITALS: BP 89/43
--- NOTE | 2021-08-01 15:30 | NUR ---
Pt arrived to unit c/o pain on her bottom. She was repositioned, and dressing removed for photo of large unstageable pressure ulcer, approx 4cm x 3.5 cm x unknown depth with whitish flores eschar over the whole wound bed. Pt also had 2 small puss-filled white areas on upper abdomen/chest area, and these were noted by patient to be areas that she had hear monitor leads in the past. pt has an area of blanchable redness on left hip laila prominence and this was covered with a mepilex that has been removed. repositioning every 2 horus or more frequently has been noted as an order and education was provided to pt regarding this as well as the plan of care for rehab.
[2021-08-01 20:59] VITALS: BP 138/91
--- NOTE | 2021-08-02 03:31 | NUR ---
care assumed at 1900 patient was up on the recliner.patient aox1 confused and forgetful. patient uses bedside commode. patient is hard to redirest, patient is able to follow simple direction. patient was calm and cooperative with meds agreed to take meds with applesause but refused to push fluids.patient is on 2L of oxygen no soa or distress noted this shift. fall precaution within reach. patient in bed asleep at this time breathing regular and unlaboured.
[2021-08-02 20:17] VITALS: BP 150/80
--- NOTE | 2021-08-02 23:46 | NUR ---
PT ASSESSMENT COMPLETED AND VSS. MEDS GIVEN ORDERED AND WELL TOLERATED. PT VERY ANXIOUS AND IMPULSIVE. PT ALSO COMPLAINED WHEN THE LIGHT WAS ON AND ASKED TO HAVE THE LIGHTS OUT REPEATEDLY. PT WAS NOT ABLE TO EXPLAIN WHAT ABOUT THE LIGHT BEING ON BOTHERED HER. PROVIDED MUCH EMOTIONAL SUPPORT. UP TO THE BSC WITH ASST/GAIT/WALKER. UNSTEADY/WEAK. VOIDED MODERATE AMOUNT OF YELLOW URINE. PROVIDED PT WITH SIPS OF WATER FREQUENTLY WITH ASST ONLY. WATER OUT OF PT REACH FOR PT SAFETY. FOLLOWED SPECIFIC SWALLOW PRECAUTIONS WITH WATER INTAKE. PT REFUSED TO REMOVE HER PANTS AND BRIEF FOR BED. WILL ATTEMPT AGAIN LATER WHEN UP TO THE BSC AGAIN. PT BECAME VERY AGITATED WHEN ASKED TO WEAR A GOWN FOR BED. PT SLEEPING WELL AT THIS TIME. FALL PRECAUTIONS IN PLACE. WILL CONTINUE TO MONITOR FREQUENTLY.
[2021-08-03 08:30] VITALS: BP 106/50
--- NOTE | 2021-08-03 13:13 | NUR ---
Team meeting recommendation: sever cognition and memory, will need 24/7 supervision at home. diet is puree with thin liquid, with chin tuck and cough. vital stim with speech. Needs lots of instruction and queuing to complete tasks. Right side eye poor. Dc 08/10/21 with [facility] ( pt, ot, st with vital stim and nurse). will need hs o2 study and o2 rest and exercise prior to dc, she is still requiring o2.
[2021-08-03 16:52] LABS: ABSOLUTE NEUTROPHILS 2.7 thou/uL (1.4-8.2); BASOPHILS 0.7 % (0.0-2.0); EOSINOPHILS 2.6 % (0.0-3.0); HEMATOCRIT 35.1 % (37.0-47.0); HEMOGLOBIN 11.2 gm/dL (12.0-15.0); LYMPHOCYTES 19.6 % (24.0-44.0); MCH 28.9 pg (26.0-34.0); MCV 90.1 fL (80.0-100.0); MONOCYTES 6.4 % (1.0-8.0); PLATELET COUNT 120 thou/uL (150-400); POLYS 70.7 % (36.0-66.0); RDW 18.8 % (10.5-14.5); WBC 3.9 thou/uL (4.0-11.0)
[2021-08-03 19:30] VITALS: BP 115/57
--- NOTE | 2021-08-04 00:17 | NUR ---
PT ALERT AND ORIENTED X 4. UP IN W/C ALL EVENING. TRANSFERRED TO BED AT WITH ASSIST X 1. PT TAKES MEDS IN APPLESAUCE WITHOUT DIFFICULTY. PT DENIES PAIN OR DISCOMFORT. BED ALARM ON FOR SAFETY. PT APPEARS TO BE SLEEPING ON HOURLY ROUNDS.
[2021-08-04 08:00] VITALS: BP 93/40
--- NOTE | 2021-08-04 14:32 | NUR ---
PT HAD A CXR TODAY WHICH SHOWED STABLE BIBASILAR INTERSTITIAL INFILTRATES WITHOUT EFFUSION. NO BEHAVIORS NOTED TODAY.
[2021-08-04 20:26] VITALS: BP 154/89
--- NOTE | 2021-08-05 01:24 | NUR ---
PT ASSESSMENT COMPLETED AND VSS. MEDS GIVEN ORDERED AND WELL TOLERATED. FALL PRECAUTIONS IN PLACE. PT UP IN CHAIR EARLY DURING SHIFT. SAT WNL ON NC. UP TO THE BSC WITH ASST/GAIT/WALKER. PT WAS ABLE TO PULL UP HER OWN BRIEF AND PANTS. PT REFUSED TO CHANGE OUT OF HER CLOTHING INTO A GOWN. PT SLEEPING WELL. WILL CONTINUE TO MONITOR FREQUENTLY.
[2021-08-05 08:00] VITALS: BP 103/55
--- NOTE | 2021-08-05 16:37 | NUR ---
PT HAD 3 BM'S TODAY. HERE TO VISIT AND WATCHED GAME WITH THE PATIENT.
[2021-08-05 20:05] VITALS: BP 142/66
--- NOTE | 2021-08-06 03:30 | NUR ---
ASSUMED CARE AT 1920 OF 08/05. PATIENT IS A&OX4, FORGETFUL AT TIMES. PATIENT WAS CALM AND COOPERATIVE AT HS. MINIMAL ASSIST FOR TRANSFERS AND AMBULATION TO BATHROOM TO VOID. TOLERATED MEDS WHOLE IN APPLE SAUCE, REQUIRED CUES FOR SWALLOWING PRECAUTIONS. FALL PRECAUTIONS IN PLACE, CALL LIGHT WITHIN REACH. WILL CONTINUE TO MONITOR.
[2021-08-06 08:00] VITALS: BP 107/54
--- NOTE | 2021-08-06 17:43 | NUR ---
WAS INCONTINENT OF URINE X 2 TODAY AND WAS ALSO INCONTINENT OF STOOL X 1. NOTICED AN INCREASE IN BEHAVIORS AND ANXIETY TODAY WELL. REMAINS VERY IMPATIENT WITH LABILE MOOD.
[2021-08-06 20:34] VITALS: BP 138/82
--- NOTE | 2021-08-07 05:57 | NUR ---
ASSUMED CARE AT 1915 OF 08/06. PATIENT IS A&0X3, REORIENTED TO TIME. FORGETFUL AND TENDS TO REPEAT HERSELF FORGETTING THAT SHE HAS LET THE NURSE KNOW ABOUT SOMETHING ALREADY. TOLERATED ORAL MEDS WHOLE IN APPLE SAUCE WITH NO CUES PROVIDED FOR SWALLOWING PRECAUTIONS. SBA WITH TRANSFERS AND AMBULATION TO BATHROOM TO VOID CLEAR YELLOW URINE. FALL PRECAUTION IN PLACE, CALL LIGHT WITHIN REACH. WILL CONTINUE TO MONITOR.
[2021-08-07 08:03] VITALS: BP 114/55
--- NOTE | 2021-08-07 18:35 | NUR ---
PT PROGRESSING TOWARD GOAL, UP TO BATHROOM WITH SBA, A&OX4, PT CALM AND PLEASANT.
[2021-08-07 21:33] VITALS: BP 114/59
--- NOTE | 2021-08-08 01:13 | NUR ---
PT ASSESSMENT COMPLETED AND VSS. MEDS GIVEN ORDERED AND WELL TOLERATED. FALL PRECAUTIONS IN PLACE. UP TO THE BSC WITH ASST/GAIT/WALKER. VOIDING LARGE AMOUNT OF YELLOW URINE. SAT WNL ON NC. DENIES NEEDS. SLEEPING WELL. WILL CONTINUE TO MONITOR FREQUENTLY.
[2021-08-08 07:37] VITALS: BP 96/58
[2021-08-08 15:57] VITALS: BP 96/58
[2021-08-08 20:06] VITALS: BP 107/63
--- NOTE | 2021-08-08 20:24 | NUR ---
PATIENT ENJOYED PICKING OUT WARDROBE CLOTHES THIS MORNING. THIS ACTIVITY LIFTED HER SPIRITS. PATIENT ADVANCED HERSELF TO HER OWN UNDERGARMENT INSTEAD OF BRIEF. PATIENT CONTINUES TO PROGRESS THROUGH PT/OT/ST. PATIENT APPEARS TO BECOMING STRONGER WITH EACH ACTIVITY WITHIN ROOM.
[2021-08-08 21:00] VITALS: BP 122/56
--- NOTE | 2021-08-09 01:20 | NUR ---
PT ASSESSMENT COMPLETED AND VSS. MEDS GIVEN ORDERED AND WELL TOLERATED. FALL PRECAUTIONS IN PLACE. UP TO THE BSC WITH ASST/GAIT/WALKER. PT VOIDING LARGE AMOUNT OF YELLOW URINE. PT SLEEPING WELL. WILL CONTINUE TO MONITOR FREQUENTLY.
[2021-08-09 06:07] LABS: HEMATOCRIT 29.6 % (37.0-47.0); HEMOGLOBIN 9.8 gm/dL (12.0-15.0); MCH 30.2 pg (26.0-34.0); MCHC 33.2 g/dL (28.0-37.0); MCV 90.9 fL (80.0-100.0); PLATELET COUNT 154 thou/uL (150-400); RBC 3.25 mil/uL (4.20-5.00); RDW 19.4 % (10.5-14.5); WBC 2.7 thou/uL (4.0-11.0)
[2021-08-09 06:41] LABS: CALCIUM 8.9 mg/dL (8.5-10.1); CREATININE 0.6 mg/dL (0.6-1.0); POTASSIUM 3.9 mmol/L (3.5-5.1)
[2021-08-09 07:20] VITALS: BP 104/54
[2021-08-09 08:46] LABS: ABSOLUTE NEUTROPHILS 1.6 thou/uL (1.4-8.2); ANISOCYTOSIS 1+; ATYPICAL LYMPHS 3 %; LARGE PLATELETS OCCASIONAL; POIKILOCYTOSIS SLIGHT
--- NOTE | 2021-08-09 14:44 | NUR ---
PATIENT IS ALERT, AND ORIENTED X 1, SHE IS FORGETFUL, AND CONFUSED AT TIMES. PATIENT TOOK ALL MEDICATION WHOLE IN APPLE SOURCE WITHOUT DIFFICULTY. SHE IS EATING MEALS, AND DRINKING FLUID WELL, ASPIRATION PRECAUTION IN PLACE, STAFF SITTING WITH PATIENT DURING MEALS. OFFERED WATER WHILE STAFF IS WATCHING. O2 IN PLACE AT 2 LITERS N/C DUE TO EXTENSION CORD/THERAPY. PRN TYLENOL GIVEN AT 1216HRS FOR C/O HEADACHE, PAIN DECREASED TO 2/10 WHEN REASSESSED. PATIENT IS VOIDING WITHOUT DIFFICULTY, VOIDS IN COMODE/TOILET. ALL FALL PRECAUTIONS IN PLACE. NO SIGN OF ACUTE DISTRESS NOTED AT THIS TIME, CALL LIGHT IN REACH, WILL CONTINUE TO MONITOR.
[2021-08-09 20:00] VITALS: BP 131/58
--- NOTE | 2021-08-10 04:23 | NUR ---
ASSUMED CARE AT 1915 OF 08/09. PATIENT IS A&OX4, BUT FORGETFUL. DENIES PAIN OR SHORTNESS OF BREATH. ON CONTINUOUS 2L OF 02 VIA NC, WHICH IS KEEPING O2SAT AT 94% OR GREATER. STAND BY ASSIST WITH TRANSFER TO BSC OVERNIGHT. ABLE TO MAKE NEEDS KNOWN. TOLERATED ORAL MEDS WHOLE IN APPLE SAUCE. FALL PRECAUTIONS IN PLACE, CALL LIGHT WITHIN REACH. WILL CONTINUE TO MONITOR.
[2021-08-10 08:00] VITALS: BP 106/58
[2021-08-10] MEDS ORDERED: IPRAT-ALBUT 0.5-3 ML INH (08:19)
[2021-08-10] MEDS ORDERED: THERAPY (11:00)
[2021-08-10] MEDS ORDERED: OXYGEN MISCELL (11:04)
[2021-08-10] MEDS ORDERED: PLAVIX 75 MG TA75 MG PO (12:11)
[2021-08-10] MEDS ORDERED: PRIMIDONE50 MG PO (12:11)
[2021-08-10] MEDS ORDERED: FLOMAX0.4 MG PO (12:11)
[2021-08-10 12:17] VITALS: BP 106/58
--- NOTE | 2021-08-10 12:21 | NUR ---
dc home today with spouse, assist with bills and pills. ok per therapy to do outpt therapy here at [facility]. she will need home o2, set up with hans. o2 tank giving to her to take home.
--- NOTE | 2021-08-10 16:48 | NUR ---
DISCHARGE INSTRUCTIONS REVIEWED WITH PT AND PT'S . VERBALIZED UNDERSTANDING. PRESCRIPTIONS FOR OXYGEN AND PT/OT AND ST WITH VITAL STIM SENT WITH . 1 OXYGEN TANK AND TUBING ALSO SENT HOME WITH PT. PT ESCORTED OUT OF HOSPITAL VIA W/C. DISCHARGED IN STABLE CONDITION.
== END 2021-08-10 16:30 | disposition home or self-care (01) | DRG 70 ==
PROVIDERS: Nurse Practitioner; Nurse Practitioner Family; ADMIT Physical Medicine & Rehabilitation; ATTEND Physical Medicine & Rehabilitation
DX: G93.41 Metabolic encephalopathy (principal); J96.01 Acute respiratory failure with hypoxia; U07.1 COVID-19; J12.82 Pneumonia due to coronavirus disease 2019; G93.1 Anoxic brain damage, not elsewhere classified; J44.1 Chronic obstructive pulmonary disease with (acute) exacerbation; E46 Unspecified protein-calorie malnutrition; G72.81 Critical illness myopathy; D61.818 Other pancytopenia; J44.0 Chronic obstructive pulmonary disease with (acute) lower respiratory infection; R53.81 Other malaise; F31.9 Bipolar disorder, unspecified; Z60.2 Problems related to living alone; E78.5 Hyperlipidemia, unspecified; E87.6 Hypokalemia; R13.10 Dysphagia, unspecified; K70.30 Alcoholic cirrhosis of liver without ascites; G62.9 Polyneuropathy, unspecified; R25.1 Tremor, unspecified; F41.1 Generalized anxiety disorder; F01.50 Vascular dementia, unspecified severity, without behavioral disturbance, psychotic disturbance, mood disturbance, and anxiety; R41.0 Disorientation, unspecified; Z88.0 Allergy status to penicillin; Z88.8 Allergy status to other drugs, medicaments and biological substances; Z90.49 Acquired absence of other specified parts of digestive tract; Z86.73 Personal history of transient ischemic attack (TIA), and cerebral infarction without residual deficits; Z86.16 Personal history of COVID-19; Z87.891 Personal history of nicotine dependence; Z68.21 Body mass index [BMI] 21.0-21.9, adult
CPT/HCPCS: 10112